=== PATIENT | male | born 1965 | race Caucasian/White ===

== ENCOUNTER 2016-04-21 13:19 | Emergency (ER) | payer MEDICAID ==
[2016-04-21 14:09] VITALS: BP 117/68
[2016-04-21 15:44] LABS: Comments Flag Yes; Hematocrit 40 % (42-52); Hemoglobin 13.3 g/dl (14.0-18.0); Mean Corpuscular HGB Conc 34 g/dl (31-36); Mean Corpuscular Hemoglobin 32 pg (27-31); Mean Corpuscular Volume 95 fL (80-94); Mean Platelet Volume 8 um3 (7.4-10.4); Red Blood Count 4.16 10^6/ul (4.0-5.4); Red Cell Distribution Width 18 % (10.5-15); White Blood Count 7.5 10^3/ul (3.5-10.8)
[2016-04-21 15:45] LABS: Add Diff/Slide Review? Slide Review Added
[2016-04-21 16:02] LABS: ALT 60 U/L (7-52); AST 130 U/L (13-39); Albumin 3.3 g/dL (3.2-5.2); Alkaline Phosphatase 142 U/L (34-104); Anion Gap 7 mmol/L (2-11); Blood Urea Nitrogen 9 mg/dL (6-24); CO2 Carbon Dioxide 28 mmol/L (22-32); Calcium 8.8 mg/dL (8.6-10.3); Chloride 102 mmol/L (101-111); EGFR African American 211.6 (>60); EGFR Non-African American 164.6 (>60); Glucose 95 mg/dL (70-100); Potassium 3.8 mmol/L (3.5-5.0); Sodium 137 mmol/L (133-145); Total Protein 7.3 g/dL (6.4-8.9)
[2016-04-21 16:07] LABS: Acetaminophen < 15 mcg/mL; Alcohol 341 mg/dL (<10); Salicylate < 2.50 mg/dL (<30)
[2016-04-21 16:17] LABS: TSH (Thyroid Stimulating Horm) 1.26 mcIU/mL (0.34-5.60)
--- NOTE | 2016-04-21 19:44 | ED ---
Chery Courtney Matthew, scribed for Ender Huizar MD on 04/21/16 at 1413 . Substance Abuse/Use - HPI Summary HPI Summary: A 50 y/o male presents to the ED by EMS for alcohol intoxication since 13:00. His parents called the police. Per the police report, the patient was incontinent, unable to form sentences, and did not know where he was. 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 CARLYLE was 0.33 measure by police [employer]OT[employer]KE [employer]RIER. - History Of Current Complaint Chief Complaint: EDSubstanceAbuse Stated Complaint: ETOH/MHE Time Seen by Provider: 04/21/16 13:55 Hx Obtained From: Patient, Other: - Police report Onset/Duration of Drug/ETOH Abuse: Hours Ingestion History: Type/Name Of Drug - EtOH Overdose Characteristics: Oral Timing Of Abuse: Binge Use Severity Initially: Moderate Severity Currently: Moderate Character: Stuporous Associated Signs And Symptoms: Negative - Allergies/Home Medications Allergies/Adverse Reactions: Allergies Allergy/AdvReac Type Severity Reaction Status Date / Time No Known Allergies Allergy Verified 11/09/14 15:19 PMH/Surg Hx/FS Hx/Imm Hx Endocrine/Hematology History: Denies: Hx Diabetes, Hx Thyroid Disease Cardiovascular History: Reports: Hx Hypertension Denies: Hx Congestive Heart Failure Respiratory History: Denies: Hx Asthma, Hx Chronic Obstructive Pulmonary Disease (COPD) GI History: Denies: Hx Ulcer Musculoskeletal History: Reports: Other Musculoskeletal History - reports hx of left knee surgery Sensory History: Reports: Hx Contacts or Glasses Opthamlomology History: Reports: Hx Contacts or Glasses Neurological History: Reports: Hx Migraine - rare, Hx Seizures, Other Neuro Impairments/Disorders - concussions Psychiatric History: Reports: Hx Anxiety, Hx Depression, Hx Substance Abuse Denies: Hx Eating Disorder, Hx of Violent Episodes Against Others - Surgical History Surgery Procedure, Year, and Place: hx of left knee surgery Hx Anesthesia Reactions: No Infectious Disease History: Unable to Obtain/Confirm Infectious Disease History: Denies: Hx Clostridium Difficile, Hx Hepatitis, Hx Human Immunodeficiency Virus (HIV), Hx of Known/Suspected MRSA, Hx Shingles, Hx Tuberculosis, Hx Known/ Suspected VRE, Hx Known/Suspected VRSA, History Other Infectious Disease, Traveled Outside the [place] in Last 30 Days - Family History Family History: FHx of depression. FHx of alcohol abuse - Social History Substance Use Type: Reports: None Substance Use Comment - Amount & Last Used: occasionally Smoking Status (MU): Light Every Day Tobacco Smoker Type: Cigarettes Amount Used/How Often: 5 cigs/day - weaning down Have You Smoked in the Last Year: No Review of Systems Constitutional: Other - Alochol Intoxication Eyes: Negative ENT: Negative Cardiovascular: Negative Respiratory: Negative Gastrointestinal: Negative Genitourinary: Negative Musculoskeletal: Negative Skin: Negative Neurological: Negative Psychological: Normal All Other Systems Reviewed And Are Negative: Yes Physical Exam Triage Information Reviewed: Yes Vital Signs On Initial Exam: Initial Vitals Temp Pulse Resp BP Pulse Ox 97.9 F 73 16 117/68 96 04/21/16 13:55 04/21/16 13:55 04/21/16 13:55 04/21/16 13:55 04/21/16 13:55 Vital Signs Reviewed: Yes Appearance: Positive: Well-Appearing, No Pain Distress Skin: Positive: Warm, Skin Color Reflects Adequate Perfusion, Dry Head/Face: Positive: Normal Head/Face Inspection Eyes: Positive: Normal ENT: Positive: Normal ENT inspection Neck: Positive: Supple, Nontender Respiratory/Lung Sounds: Positive: Clear to Auscultation, Breath Sounds Present Cardiovascular: Positive: RRR Abdomen Description: Positive: Nontender, Soft Bowel Sounds: Positive: Present Musculoskeletal: Positive: Normal, Strength/ROM Intact Neurological: Positive: Normal Psychiatric: Positive: Other - Alcohol Intoxication Diagnostics - Vital Signs Vital Signs Temp Pulse Resp BP Pulse Ox 04/21/16 13:55 97.9 F 73 16 117/68 96 - Laboratory Lab Results: Lab Results 04/21/16 04/21/16 Range/Units 15:37 15:37 WBC 7.5 (3.5-10.8) 10^3/ul RBC 4.16 (4.0-5.4) 10^6/ul Hgb 13.3 L (14.0-18.0) g/dl Hct 40 L (42-52) % MCV 95 H (80-94) fL MCH 32 H (27-31) pg MCHC 34 (31-36) g/dl RDW 18 H (10.5-15) % Plt Count 97 L (150-450) 10^3/ul MPV 8 (7.4-10.4) um3 Neut % (Auto) 61.2 (38-83) % Lymph % (Auto) 20.9 L (25-47) % [place] % (Auto) 11.0 H (1-9) % Eos % (Auto) 6.0 (0-6) % Baso % (Auto) 0.9 (0-2) % Absolute Neuts (auto) 4.6 (1.5-7.7) 10^3/ul Absolute Lymphs (auto) 1.6 (1.0-4.8) 10^3/ul Absolute Monos (auto) 0.8 (0-0.8) 10^3/ul Absolute Eos (auto) 0.4 (0-0.6) 10^3/ul Absolute Basos (auto) 0.1 (0-0.2) 10^3/ul Absolute Nucleated RBC 0 10^3/ul Nucleated RBC % 0 Hem Pathologist Commnt Pending Sodium 137 (133-145) mmol/L Potassium 3.8 (3.5-5.0) mmol/L Chloride 102 (101-111) mmol/L Carbon Dioxide 28 (22-32) mmol/L Anion Gap 7 (2-11) mmol/L BUN 9 (6-24) mg/dL Creatinine 0.53 L (0.67-1.17) mg/dL Est GFR ( Amer) 211.6 (>60) Est GFR (Non-Af Amer) 164.6 (>60) BUN/Creatinine Ratio 17.0 (8-20) Glucose 95 (70-100) mg/dL Calcium 8.8 (8.6-10.3) mg/dL Total Bilirubin 2.00 H (0.2-1.0) mg/dL AST 130 H (13-39) U/L ALT 60 H (7-52) U/L Alkaline Phosphatase 142 H (34-104) U/L Total Protein 7.3 (6.4-8.9) g/dL Albumin 3.3 (3.2-5.2) g/dL Globulin 4.0 (2-4) g/dL Albumin/Globulin Ratio 0.8 L (1-3) TSH 1.26 (0.34-5.60) mcIU/mL Salicylates < 2.50 (<30) mg/dL Acetaminophen < 15 mcg/mL Serum Alcohol 341 H (<10) mg/dL Result Diagrams: 04/21/16 15:37 04/21/16 15:37 Lab Statement: Any lab studies that have been ordered have been reviewed, and results considered in the medical decision making process. Course/Dx - Course Assessment/Plan: PATIENT AMBULATED IN ED. PARENT IS GOING TO PICK PATIENT UP FROM ED. DISCHARGE HOME STABLE. - Diagnoses Provider Diagnoses: Alcohol intoxication, Alcoholism Discharge - Discharge Plan Condition: Stable Disposition: HOME Patient Education Materials: Alcohol Intoxication (ED), Alcohol Dependence (ED) Referrals: Lili Lindquist NP [Primary Care Provider] - [facility] [Outside] [facility] [Outside] [facility] [Outside] Additional Instructions: FOLLOW UP WITH YOUR DOCTOR. RETURN TO THE EMERGENCY DEPARTMENT FOR ANY WORSENING OF YOUR CONDITION OR QUESTIONS OR CONCERNS. The documentation as recorded by the Chery gardner Matthew accurately reflects the service I personally performed and the decisions made by me, Ender Huizar MD.
== END 2016-04-21 21:22 | disposition home or self-care (01) ==
LOC: ED 13:19
DX: F10.229 Alcohol dependence with intoxication, unspecified (principal); F41.9 Anxiety disorder, unspecified; F17.210 Nicotine dependence, cigarettes, uncomplicated; Y90.8 Blood alcohol level of 240 mg/100 ml or more
CPT/HCPCS: 36415; 80053; 80320; 80329; 84443; 85025; 85060; 99282; G0480

== ENCOUNTER 2016-06-24 14:18 | Emergency (ER) | payer MEDICAID ==
[2016-06-24 15:51] LABS: Comments Flag Yes; Hematocrit 41 % (42-52); Mean Corpuscular HGB Conc 34 g/dl (31-36); Mean Corpuscular Hemoglobin 33 pg (27-31); Mean Corpuscular Volume 98 fL (80-94); Mean Platelet Volume 10 um3 (7.4-10.4); Red Blood Count 4.22 10^6/ul (4.0-5.4); Red Cell Distribution Width 15 % (10.5-15)
[2016-06-24 15:52] LABS: Add Diff/Slide Review? Slide Review Added
[2016-06-24 16:06] LABS: ALT 43 U/L (7-52); AST 114 U/L (13-39); Albumin 3.2 g/dL (3.2-5.2); Alkaline Phosphatase 171 U/L (34-104); Anion Gap 5 mmol/L (2-11); BUN/Creatinine Ratio 18.3 (8-20); Blood Urea Nitrogen 11 mg/dL (6-24); CO2 Carbon Dioxide 31 mmol/L (22-32); Calcium 8.2 mg/dL (8.6-10.3); Chloride 105 mmol/L (101-111); EGFR African American 183.4 (>60); EGFR Non-African American 142.6 (>60); Globulin 3.4 g/dL (2-4); Glucose 103 mg/dL (70-100); Potassium 3.4 mmol/L (3.5-5.0); Sodium 141 mmol/L (133-145); Total Protein 6.6 g/dL (6.4-8.9)
[2016-06-24 16:27] LABS: Acetaminophen < 15 mcg/mL; Salicylate < 2.50 mg/dL (<30)
[2016-06-24 16:32] LABS: Alcohol 441 mg/dL (<10)
--- NOTE | 2016-06-24 17:09 | ED ---
Substance Abuse/Use - HPI Summary HPI Summary: Patient BIBA after someone called police reporting strange behavior and "drunk walking" by patient. Police stated he was very confused on where he was, but very polite and willing to come to ED. Upon arrival, patient is confused but states he called the police from his home and thinks he fell and hit his face on the ground. Denies known LOC. Patient states he drinks daily about 5-6 drinks, but today drank much more. He does not remember how much. He states he was drinking at home. He has not tried to quit, and does not take any medications. Denies drug use. - History Of Current Complaint Chief Complaint: EDSubstanceAbuse Stated Complaint: 2208 Time Seen by Provider: 06/24/16 14:50 Hx Obtained From: Patient Onset/Duration of Drug/ETOH Abuse: Years Ingestion History: Amount Ingested - unknown Timing Of Abuse: Binge Use Severity Initially: Severe Severity Currently: Severe Character: Stuporous Aggravating Factor(s): Nothing Alleviating Factor(s): Nothing Associated Signs And Symptoms: Confused, Altered Mental Status - Risk Factor(s) Completed Suicide Risk Factors: Male, White Australian - Allergies/Home Medications Allergies/Adverse Reactions: Allergies Allergy/AdvReac Type Severity Reaction Status Date / Time No Known Allergies Allergy Verified 06/24/16 14:27 PMH/Surg Hx/FS Hx/Imm Hx Previously Healthy: Yes Endocrine/Hematology History: Denies: Hx Diabetes, Hx Thyroid Disease Cardiovascular History: Reports: Hx Hypertension Denies: Hx Congestive Heart Failure Respiratory History: Denies: Hx Asthma, Hx Chronic Obstructive Pulmonary Disease (COPD) GI History: Denies: Hx Ulcer Musculoskeletal History: Reports: Other Musculoskeletal History - reports hx of left knee surgery Sensory History: Reports: Hx Contacts or Glasses Opthamlomology History: Reports: Hx Contacts or Glasses Neurological History: Reports: Hx Migraine - rare, Hx Seizures, Other Neuro Impairments/Disorders - concussions Psychiatric History: Reports: Hx Anxiety, Hx Depression, Hx Substance Abuse Denies: Hx Eating Disorder, Hx of Violent Episodes Against Others - Surgical History Surgery Procedure, Year, and Place: hx of left knee surgery Hx Anesthesia Reactions: No Infectious Disease History: No Infectious Disease History: Denies: Hx Clostridium Difficile, Hx Hepatitis, Hx Human Immunodeficiency Virus (HIV), Hx of Known/Suspected MRSA, Hx Shingles, Hx Tuberculosis, Hx Known/ Suspected VRE, Hx Known/Suspected VRSA, History Other Infectious Disease, Traveled Outside the [place] in Last 30 Days - Family History Family History: FHx of depression. FHx of alcohol abuse - Social History Occupation: Employed Full-time Lives: Alone Alcohol Use: consumed excess hard liquor today Alcohol Amount: consumed hard liquor today Hx Substance Use: No Substance Use Type: Reports: Other Substance Use Comment - Amount & Last Used: occasionally, pt unable to verbalize clear answers now Smoking Status (MU): Light Every Day Tobacco Smoker Type: Cigarettes Amount Used/How Often: 5 cigs/day - weaning down Have You Smoked in the Last Year: No Review of Systems Constitutional: Negative Cardiovascular: Negative Respiratory: Negative Gastrointestinal: Negative Positive: no symptoms reported Musculoskeletal: Negative Skin: Negative Psychological: Normal All Other Systems Reviewed And Are Negative: Yes Physical Exam Triage Information Reviewed: Yes Vital Signs On Initial Exam: Initial Vitals Temp Pulse Resp BP Pulse Ox 97.9 F 77 16 116/72 100 06/24/16 14:27 06/24/16 14:27 06/24/16 14:27 06/24/16 14:27 06/24/16 14:27 Vital Signs Reviewed: Yes Appearance: Positive: Well-Appearing, Well-Nourished Skin: Positive: Warm, Skin Color Reflects Adequate Perfusion Head/Face: Positive: Normal Head/Face Inspection Eyes: Positive: JOSUÉ, Conjunctiva Clear Neck: Positive: Supple, No Lymphadenopathy Respiratory/Lung Sounds: Positive: Clear to Auscultation, Breath Sounds Present Cardiovascular: Positive: Normal Musculoskeletal: Positive: Normal, Strength/ROM Intact Neurological: Positive: Other - abnormal speech d/t intoxication, abnormal gait. unable to perform neuro exam Psychiatric: Positive: Normal AVPU Assessment: Alert - Caitlyn Coma Scale Coma Scale Total: 15 Diagnostics - Vital Signs Vital Signs Temp Pulse Resp BP Pulse Ox 06/24/16 16:15 97.1 F 06/24/16 15:14 66 18 117/59 97 06/24/16 14:27 97.9 F 77 16 116/72 100 - Laboratory Lab Results: Lab Results 06/24/16 06/24/16 06/24/16 Range/Units 15:38 15:38 15:38 WBC 9.0 (3.5-10.8) 10^3/ul RBC 4.22 (4.0-5.4) 10^6/ul Hgb 14.0 (14.0-18.0) g/dl Hct 41 L (42-52) % MCV 98 H (80-94) fL MCH 33 H (27-31) pg MCHC 34 (31-36) g/dl RDW 15 (10.5-15) % Plt Count 99 L (150-450) 10^3/ul MPV 10 (7.4-10.4) um3 Neut % (Auto) 56.5 (38-83) % Lymph % (Auto) 29.8 (25-47) % [place] % (Auto) 9.2 H (1-9) % Eos % (Auto) 3.8 (0-6) % Baso % (Auto) 0.7 (0-2) % Absolute Neuts (auto) 5.1 (1.5-7.7) 10^3/ul Absolute Lymphs (auto) 2.7 (1.0-4.8) 10^3/ul Absolute Monos (auto) 0.8 (0-0.8) 10^3/ul Absolute Eos (auto) 0.3 (0-0.6) 10^3/ul Absolute Basos (auto) 0.1 (0-0.2) 10^3/ul Absolute Nucleated RBC 0.02 10^3/ul Nucleated RBC % 0.2 Sodium 141 (133-145) mmol/L Potassium 3.4 L (3.5-5.0) mmol/L Chloride 105 (101-111) mmol/L Carbon Dioxide 31 (22-32) mmol/L Anion Gap 5 (2-11) mmol/L BUN 11 (6-24) mg/dL Creatinine 0.60 L (0.67-1.17) mg/dL Est GFR ( Amer) 183.4 (>60) Est GFR (Non-Af Amer) 142.6 (>60) BUN/Creatinine Ratio 18.3 (8-20) Glucose 103 H (70-100) mg/dL Lactic Acid 2.4 H* (0.5-2.0) mmol/L Calcium 8.2 L (8.6-10.3) mg/dL Total Bilirubin 1.70 H (0.2-1.0) mg/dL AST 114 H (13-39) U/L ALT 43 (7-52) U/L Alkaline Phosphatase 171 H (34-104) U/L Total Protein 6.6 (6.4-8.9) g/dL Albumin 3.2 (3.2-5.2) g/dL Globulin 3.4 (2-4) g/dL Albumin/Globulin Ratio 0.9 L (1-3) Salicylates < 2.50 (<30) mg/dL Acetaminophen < 15 mcg/mL Serum Alcohol 441 H* (<10) mg/dL Result Diagrams: 06/24/16 15:38 06/24/16 15:38 Lab Statement: Any lab studies that have been ordered have been reviewed, and results considered in the medical decision making process. Course/Dx - Course Course Of Treatment: Patient cooperative but stuporous on exam. CARLYLE 4.41. Held for observation and sober up. 6 hours after arrival to ED, patient walking and talking without issues. Patient called friend for a ride home, and would like to be discharged. Otherwise labs OK. - Diagnoses Differential Diagnosis/HQI/PQRI: Positive: Alcohol Abuse, Alcohol Withdrawal, Anxiety, Depression Provider Diagnoses: Alcohol abuse Discharge - Discharge Plan Condition: Stable Disposition: HOME Patient Education Materials: Alcohol Intoxication (ED) Referrals: Lili Lindquist NP [Primary Care Provider] - Additional Instructions: Follow up with your PCP. Do not drink to excess. Rest. Drink plenty of water.
[2016-06-24 23:06] VITALS: BP 148/84
== END 2016-06-24 23:05 | disposition home or self-care (01) ==
LOC: ED 14:18
DX: F10.10 Alcohol abuse, uncomplicated (principal); Y90.8 Blood alcohol level of 240 mg/100 ml or more; R41.82 Altered mental status, unspecified; R41.0 Disorientation, unspecified; F17.210 Nicotine dependence, cigarettes, uncomplicated
CPT/HCPCS: 36415; 80053; 80320; 80329; 83605; 85025; 99283; G0480

== ENCOUNTER → 2017-01-02 19:05 | Emergency (ER) | payer BC, MEDICAID ==
[~2017-01-02 19:05] MED LIST: Potassium Chlor TAB* 20 MEQ TAB.ER PO ONE
[2017-01-02 20:59] LABS: Hematocrit 39 % (42-52); Hemoglobin 13.6 g/dl (14.0-18.0); Mean Corpuscular HGB Conc 35 g/dl (31-36); Mean Corpuscular Hemoglobin 33 pg (27-31); Mean Corpuscular Volume 94 fL (80-94); Mean Platelet Volume 9 um3 (7.4-10.4); Red Cell Distribution Width 15 % (10.5-15); White Blood Count 12.5 10^3/ul (3.5-10.8)
[2017-01-02 21:13] LABS: Albumin 3.5 g/dL (3.2-5.2); BUN/Creatinine Ratio 23.8 (8-20); Calcium 8.5 mg/dL (8.6-10.3); EGFR African American 172.7 (>60); EGFR Non-African American 134.3 (>60); Globulin 3.1 g/dL (2-4); Potassium 3.4 mmol/L (3.5-5.0); Total Bilirubin 1.3 mg/dL (0.2-1.0); Total Protein 6.6 g/dL (6.4-8.9)
--- NOTE | 2017-01-03 06:43 | ED ---
Milvia Courtney Rebecca, scribed for Edgard Jolley on 01/03/17 at 0057 . 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 When asked why he presents to the ED, the pt states I dont know reporting that his family called EMS. Pt confirms EtOH use tonight. Denies any other drug use. Denies SIs and any pain. Pt reports that he does not use EtOH every day. Per triage note, the PD states that the pt was at his mothers house despite an order of protection. - History Of Current Complaint Chief Complaint: EDSubstanceAbuse Stated Complaint: 2208 Time Seen by Provider: 01/02/17 20:18 Hx Obtained From: Patient Ingestion History: Type/Name Of Drug - EtOH Overdose Characteristics: Oral Aggravating Factor(s): Nothing Alleviating Factor(s): Nothing Associated Signs And Symptoms: Negative - Allergies/Home Medications Allergies/Adverse Reactions: Allergies Allergy/AdvReac Type Severity Reaction Status Date / Time No Known Allergies Allergy Verified 01/02/17 19:11 PMH/Surg Hx/FS Hx/Imm Hx Endocrine/Hematology History: Denies: Hx Diabetes, Hx Thyroid Disease Cardiovascular History: Reports: Hx Hypertension Denies: Hx Congestive Heart Failure Respiratory History: Denies: Hx Asthma, Hx Chronic Obstructive Pulmonary Disease (COPD) GI History: Denies: Hx Ulcer Musculoskeletal History: Reports: Other Musculoskeletal History - reports hx of left knee surgery Sensory History: Reports: Hx Contacts or Glasses Opthamlomology History: Reports: Hx Contacts or Glasses Neurological History: Reports: Hx Migraine - rare, Hx Seizures, Other Neuro Impairments/Disorders - concussions Psychiatric History: Reports: Hx Anxiety, Hx Depression, Hx Substance Abuse Denies: Hx Eating Disorder, Hx of Violent Episodes Against Others - Surgical History Surgery Procedure, Year, and Place: hx of left knee surgery Hx Anesthesia Reactions: No Infectious Disease History: No Infectious Disease History: Denies: Hx Clostridium Difficile, Hx Hepatitis, Hx Human Immunodeficiency Virus (HIV), Hx of Known/Suspected MRSA, Hx Shingles, Hx Tuberculosis, Hx Known/ Suspected VRE, Hx Known/Suspected VRSA, History Other Infectious Disease, Traveled Outside the [place] in Last 30 Days - Family History Family History: FHx of depression. FHx of alcohol abuse - Social History Alcohol Use: see comment Alcohol Amount: consumed hard liquor today Hx Substance Use: No Substance Use Type: Reports: None, Other Substance Use Comment - Amount & Last Used: occasionally, pt unable to verbalize clear answers now Smoking Status (MU): Light Every Day Tobacco Smoker Type: Cigarettes Amount Used/How Often: 5 cigs/day - weaning down Have You Smoked in the Last Year: No Review of Systems Positive: Other - EtOH intoxication Positive: Other - NEGATIVE: Pain Positive: Other - NEGATIVE: SIs All Other Systems Reviewed And Are Negative: Yes Physical Exam - Summary Physical Exam Summary: Appearance: Well appearing, no pain distress Skin: warm, dry, reflects adequate perfusion Head/face: normal Eyes: EOMI, JOSUÉ ENT: normal Neck: supple, nontender Respiratory: CTA, breath sounds present Cardiovascular: RRR, pulses symmetrical Abdomen: nontender, soft Bowel: present Musculoskeletal: normal, strength/ROM intact Neuro: normal, sensory motor intact, A&Ox3 Triage Information Reviewed: Yes Vital Signs On Initial Exam: Initial Vitals Temp Pulse Resp BP Pulse Ox 99.7 F 81 16 134/74 99 01/02/17 19:08 01/02/17 19:08 01/02/17 19:08 01/02/17 19:08 01/02/17 19:08 Vital Signs Reviewed: Yes - Caitlyn Coma Scale Coma Scale Total: 15 Diagnostics - Vital Signs Vital Signs Temp Pulse Resp BP Pulse Ox 01/02/17 19:08 99.7 F 81 16 134/74 99 - Laboratory Lab Results: Lab Results 01/02/17 01/02/17 Range/Units 20:48 20:48 WBC 12.5 H (3.5-10.8) 10^3/ul RBC 4.20 (4.0-5.4) 10^6/ul Hgb 13.6 L (14.0-18.0) g/dl Hct 39 L (42-52) % MCV 94 (80-94) fL MCH 33 H (27-31) pg MCHC 35 (31-36) g/dl RDW 15 (10.5-15) % Plt Count 108 L (150-450) 10^3/ul MPV 9 (7.4-10.4) um3 Neut % (Auto) 63.9 (38-83) % Lymph % (Auto) 25.8 (25-47) % [place] % (Auto) 5.6 (1-9) % Eos % (Auto) 3.9 (0-6) % Baso % (Auto) 0.8 (0-2) % Absolute Neuts (auto) 8.0 H (1.5-7.7) 10^3/ul Absolute Lymphs (auto) 3.2 (1.0-4.8) 10^3/ul Absolute Monos (auto) 0.7 (0-0.8) 10^3/ul Absolute Eos (auto) 0.5 (0-0.6) 10^3/ul Absolute Basos (auto) 0.1 (0-0.2) 10^3/ul Absolute Nucleated RBC 0 10^3/ul Nucleated RBC % 0 Sodium 140 (133-145) mmol/L Potassium 3.4 L (3.5-5.0) mmol/L Chloride 106 (101-111) mmol/L Carbon Dioxide 26 (22-32) mmol/L Anion Gap 8 (2-11) mmol/L BUN 15 (6-24) mg/dL Creatinine 0.63 L (0.67-1.17) mg/dL Est GFR ( Amer) 172.7 (>60) Est GFR (Non-Af Amer) 134.3 (>60) BUN/Creatinine Ratio 23.8 H (8-20) Glucose 105 H (70-100) mg/dL Calcium 8.5 L (8.6-10.3) mg/dL Total Bilirubin 1.30 H (0.2-1.0) mg/dL AST 50 H (13-39) U/L ALT 28 (7-52) U/L Alkaline Phosphatase 128 H (34-104) U/L Total Protein 6.6 (6.4-8.9) g/dL Albumin 3.5 (3.2-5.2) g/dL Globulin 3.1 (2-4) g/dL Albumin/Globulin Ratio 1.1 (1-3) Serum Alcohol 288 H (<10) mg/dL Result Diagrams: 01/02/17 20:48 01/02/17 20:48 Lab Statement: Any lab studies that have been ordered have been reviewed, and results considered in the medical decision making process. 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 When asked why he presents to the ED, the pt states I dont know reporting that his family called EMS. Pt confirms EtOH use tonight. Denies any other drug use. Denies SIs and any pain. Pt reports that he does not use EtOH every day. Per triage note, the PD states that the pt was at his mothers house despite an order of protection. Serum alcohol of 288, potassium of 3.4. In the ED course, pt was given potassium chloride. Pt will be signed out to Dr. Conde, pending disposition, awiating observation due to concerns of withdrawal. - Diagnoses Provider Diagnoses: Alcohol intoxication Discharge - Discharge Plan Condition: Stable Disposition: OTHER Discharge Disposition Comment: Pt will be signed out, pending dispo d/t concerns of withdrawal The documentation as recorded by the Milvia gardner Rebecca accurately reflects the service I personally performed and the decisions made by me, Edgard Jolley.
[2017-01-03 08:19] VITALS: BP 156/92
== END | disposition home or self-care (01) ==
LOC: ED 19:05
DX: F10.129 Alcohol abuse with intoxication, unspecified (principal); Y90.8 Blood alcohol level of 240 mg/100 ml or more; F17.210 Nicotine dependence, cigarettes, uncomplicated
CPT/HCPCS: 36415; 80053; 80320; 85025; 99283; A9270-GY; G0480

== ENCOUNTER 2017-05-14 12:59 | Emergency (ER) | payer BC ==
[2017-05-14] MEDS ORDERED: Thiamine IV 100 MG, Folic Acid IV* 1 MG, Multiple Vitamin IV ADULT* 10 ML in NS 0.9% 10... IV ONE (13:09)
[2017-05-14 13:46] LABS: ABS Basophils 0.1 10^3/ul (0-0.2); ABS Eosinophils 0.1 10^3/ul (0-0.6); ABS Lymphocytes 2.2 10^3/ul (1.0-4.8); ABS Monocytes 0.5 10^3/ul (0-0.8); ABS Neutrophils 6.5 10^3/ul (1.5-7.7); ABS Nucleated RBC 0 10^3/ul; Eosinophil % 1.6 % (0-6); Hematocrit 47 % (42-52); Lymphocyte % 23.1 % (25-47); Mean Corpuscular HGB Conc 34 g/dl (31-36); Mean Corpuscular Hemoglobin 32 pg (27-31); Mean Corpuscular Volume 95 fL (80-94); Mean Platelet Volume 9 um3 (7.4-10.4); Nucleated Red Blood Cells % 0; Platelet Count 124 10^3/ul (150-450); Red Blood Count 4.92 10^6/ul (4.0-5.4); Red Cell Distribution Width 16 % (10.5-15); White Blood Count 9.4 10^3/ul (3.5-10.8)
[2017-05-14 14:03] LABS: EGFR Non-African American 139.4 (>60)
--- NOTE | 2017-05-14 14:33 | RAD ---
INDICATION: Fall. EtOH COMPARISON: CT brain October 01, 2015 TECHNIQUE: Noncontrast axial source images were acquired from the skull base to the vertex. The examination is mildly limited due to motion artifact. FINDINGS: Ventricles/sulci: The ventricles and cisterns are normal in size and configuration for age. Brain parenchyma: There is no focal parenchymal finding, evidence of intracranial mass, or intracranial mass effect. Intracranial hemorrhage:None. Extra-axial spaces: There are no abnormal extra axial fluid collections or evidence of extra-axial mass. Calvarium: There is no calvarial fracture or other calvarial abnormality. Scalp: There is no evidence of scalp or extracalvarial soft tissue abnormality. Paranasal sinuses/mastoid: There are findings of mild chronic pansinusitis. The mastoid air cells are clear. Other: None. IMPRESSION: No acute intracranial findings
--- NOTE | 2017-05-14 14:38 | RAD ---
HISTORY: Fall, intoxication, facial trauma COMPARISONS: None TECHNIQUE: Multiple contiguous axial CT scans were obtained of the face without intravenous contrast, with coronal and sagittal multiplanar reformations. FINDINGS: The study is limited by patient motion artifact. BONES: There is no displaced fracture or dislocation. The orbital rim is intact. The zygomatic arch is intact. The pterygoid plates are intact. ORBITS: The globes are round. The optic nerves are symmetric. The extraocular musculature is normal. There is no post septal or intraconal inflammatory change. There is no retrobulbar hematoma. PARANASAL SINUSES: The nasal septum is deviated to the right with left-sided spurring. There is mucosal thickening of the maxillary sinuses and ethmoid air cells and left frontal sinus. There is mucosal thickening of the left sphenoid sinus. BRAIN AND SOFT TISSUE: Unremarkable. OTHER: None. IMPRESSION: 1. NO FACIAL FRACTURE. 2. MODERATE SINUS MUCOSAL INFLAMMATORY DISEASE, WITHOUT AIR-FLUID LEVEL TO SUGGEST ACUTE SINUSITIS.
--- NOTE | 2017-05-14 18:24 | ED ---
Nhung Courtney Thomas, scribed for Rob Paredes MD on 05/14/17 at 1429 . Complex/Multi-Sys Presentation - HPI Summary HPI Summary: The patient is a 51 year old male brought in by police via ambulance because his blood alcohol was measured 0.32 via breathalyzer prior to arrival. The police were called because the patient has an order of protection not to go his parents house when he is intoxicated. The patient does not remember falling yesterday, although there is a bruise to his forehead and chin. He drinks every day, and he last consumed alcohol today at 10:00. He denies nausea, vomiting, neck pain, or any pain. Past medical history includes liver disease, anxiety, and depression. - History Of Current Complaint Chief Complaint: EDSubstanceAbuse Time Seen by Provider: 05/14/17 13:08 Hx Obtained From: Patient Onset/Duration: Still Present Timing: Constant Severity Currently: Moderate Aggravating Factor(s): EtOH Alleviating Factor(s): None Associated Signs And Symptoms: Positive: Other - Intoxication, bruise to his head; NEGATIVE: nausea, vomiting, neck pain - Allergies/Home Medications Allergies/Adverse Reactions: Allergies Allergy/AdvReac Type Severity Reaction Status Date / Time No Known Allergies Allergy Verified 01/02/17 19:11 PMH/Surg Hx/FS Hx/Imm Hx Endocrine/Hematology History: Denies: Hx Diabetes, Hx Thyroid Disease Cardiovascular History: Reports: Hx Hypertension Denies: Hx Congestive Heart Failure Respiratory History: Denies: Hx Asthma, Hx Chronic Obstructive Pulmonary Disease (COPD) GI History: Denies: Hx Ulcer Musculoskeletal History: Reports: Other Musculoskeletal History - reports hx of left knee surgery Sensory History: Reports: Hx Contacts or Glasses Opthamlomology History: Reports: Hx Contacts or Glasses Neurological History: Reports: Hx Migraine - rare, Hx Seizures, Other Neuro Impairments/Disorders - concussions Psychiatric History: Reports: Hx Anxiety, Hx Depression, Hx Substance Abuse Denies: Hx Eating Disorder, Hx of Violent Episodes Against Others - Surgical History Surgery Procedure, Year, and Place: hx of left knee surgery Hx Anesthesia Reactions: No Infectious Disease History: No Infectious Disease History: Denies: Hx Clostridium Difficile, Hx Hepatitis, Hx Human Immunodeficiency Virus (HIV), Hx of Known/Suspected MRSA, Hx Shingles, Hx Tuberculosis, Hx Known/ Suspected VRE, Hx Known/Suspected VRSA, History Other Infectious Disease, Traveled Outside the [place] in Last 30 Days - Family History Known Family History: Positive: Other - Depression, alcohol abuse - Social History Alcohol Use: Daily Alcohol Amount: last drink 1000 Hx Substance Use: No Substance Use Type: Reports: None, Other Substance Use Comment - Amount & Last Used: occasionally, pt unable to verbalize clear answers now Smoking Status (MU): Former Smoker Type: Cigarettes Amount Used/How Often: 5 cigs/day - weaning down Have You Smoked in the Last Year: No Review of Systems Negative: Fever Negative: Vomiting, Nausea Negative: Other - neck pain Positive: Other - Bruise to head Neurological: Other - Intoxication All Other Systems Reviewed And Are Negative: Yes Physical Exam - Summary Physical Exam Summary: VITAL SIGNS: Reviewed. GENERAL: Patient is an intoxicated male is lying comfortable in the stretcher. Patient is not in any acute respiratory distress. HEAD AND FACE: He has a bruise to his forehead and chin. No hematomas or skull depressions. No sinus tenderness. EYES: PERRLA, EOMI x 2, No injected conjunctiva, no nystagmus. EARS: Hearing grossly intact. Ear canals and tympanic membranes are within normal limits. MOUTH: Oropharynx within normal limits. He has alcohol on his breath. NECK: Supple, trachea is midline, no adenopathy, no JVD, no carotid bruit, no c- spine tenderness, neck with full ROM. CHEST: Symmetric, no tenderness at palpation LUNGS: Clear to auscultation bilaterally. No wheezing or crackles. CVS: Regular rate and rhythm, S1 and S2 present, no murmurs or gallops appreciated. ABDOMEN: Soft, non-tender. No signs of distention. No rebound no guarding, and no masses palpated. Bowel sounds are normal. EXTREMITIES: FROM in all major joints, no edema, no cyanosis or clubbing. NEURO: Alert and oriented x 3. Because he is intoxicated, he is a bit unstable on his feet. Speech is normal and follows commands. SKIN: Dry and warm Triage Information Reviewed: Yes Vital Signs On Initial Exam: Initial Vitals Temp Pulse Resp BP Pulse Ox 98 F 94 18 131/73 95 05/14/17 13:08 05/14/17 13:08 05/14/17 13:08 05/14/17 13:08 05/14/17 13:08 Vital Signs Reviewed: Yes Diagnostics - Vital Signs Vital Signs Temp Pulse Resp BP Pulse Ox 05/14/17 13:37 94 90 05/14/17 13:35 127/69 05/14/17 13:08 98 F 94 18 131/73 95 - Laboratory Lab Results: Lab Results 05/14/17 05/14/17 Range/Units 13:32 13:32 WBC 9.4 (3.5-10.8) 10^3/ul RBC 4.92 (4.0-5.4) 10^6/ul Hgb 16.0 (14.0-18.0) g/dl Hct 47 (42-52) % MCV 95 H (80-94) fL MCH 32 H (27-31) pg MCHC 34 (31-36) g/dl RDW 16 H (10.5-15) % Plt Count 124 L (150-450) 10^3/ul MPV 9 (7.4-10.4) um3 Neut % (Auto) 69.4 (38-83) % Lymph % (Auto) 23.1 L (25-47) % Ocean % (Auto) 5.4 (1-9) % Eos % (Auto) 1.6 (0-6) % Baso % (Auto) 0.5 (0-2) % Absolute Neuts (auto) 6.5 (1.5-7.7) 10^3/ul Absolute Lymphs (auto) 2.2 (1.0-4.8) 10^3/ul Absolute Monos (auto) 0.5 (0-0.8) 10^3/ul Absolute Eos (auto) 0.1 (0-0.6) 10^3/ul Absolute Basos (auto) 0.1 (0-0.2) 10^3/ul Absolute Nucleated RBC 0 10^3/ul Nucleated RBC % 0 Sodium 142 (133-145) mmol/L Potassium 3.9 (3.5-5.0) mmol/L Chloride 104 (101-111) mmol/L Carbon Dioxide 25 (22-32) mmol/L Anion Gap 13 H (2-11) mmol/L BUN 13 (6-24) mg/dL Creatinine 0.61 L (0.67-1.17) mg/dL Est GFR ( Amer) 179.2 (>60) Est GFR (Non-Af Amer) 139.4 (>60) BUN/Creatinine Ratio 21.3 H (8-20) Glucose 90 (70-100) mg/dL Calcium 9.1 (8.6-10.3) mg/dL Total Bilirubin 1.50 H (0.2-1.0) mg/dL AST 62 H (13-39) U/L ALT 34 (7-52) U/L Alkaline Phosphatase 129 H (34-104) U/L Total Protein 7.9 (6.4-8.9) g/dL Albumin 4.2 (3.2-5.2) g/dL Globulin 3.7 (2-4) g/dL Albumin/Globulin Ratio 1.1 (1-3) TSH Pending Salicylates < 2.50 (<30) mg/dL Acetaminophen < 15 mcg/mL Serum Alcohol Pending Result Diagrams: 05/14/17 13:32 05/14/17 13:32 Lab Statement: Any lab studies that have been ordered have been reviewed, and results considered in the medical decision making process. - CT CT Maxillofacial CT Interpretation: No Acute Changes - 1. NO FACIAL FRACTURE. 2. MODERATE SINUS MUCOSAL INFLAMMATORY DISEASE, WITHOUT AIR-FLUID LEVEL TO SUGGEST ACUTE SINUSITIS. Dr. Paredes has reviewed this report. CT Interpretation Completed By: Radiologist CT Brain CT Interpretation: No Acute Changes - NO ACUTE INTRACRANIAL PATHOLOGY. Dr. Paredes has reviewed this report. CT Interpretation Completed By: Radiologist Complex Multi-Symp Course/Dx Assessment/Plan: The patient is a 51 year old male brought in by police via ambulance because his blood alcohol was measured 0.32 via breathalyzer prior to arrival. The police were called because the patient has an order of protection not to go his parents house when he is intoxicated. The patient does not remember falling yesterday, although there is a bruise to his forehead and chin. He drinks every day, and he last consumed alcohol today at 10:00. He denies nausea, vomiting, neck pain, or any pain. Past medical history includes liver disease, anxiety, and depression. Test results are without significant abnormalities except anion gap 13 and alcohol level 422. I did a maxillofacial CT and head CT because the patient some abrasion on his head due to a fall. CT Brain shows NO ACUTE INTRACRANIAL PATHOLOGY. CT Maxillofacial shows 1. NO FACIAL FRACTURE. 2. MODERATE SINUS MUCOSAL INFLAMMATORY DISEASE, WITHOUT AIR- FLUID LEVEL TO SUGGEST ACUTE SINUSITIS. At this point, the patient is intoxicated and hemodynamically stable. The patient was given a banana bag. The patient is drinking without any abnormalities. At this point, we are waiting for the patient to get sober. The patient will be signed out to Dr. Frye pending EtOH metabolism to follow up on the disposition of the patient. - Diagnoses Provider Diagnoses: Alcohol intoxication Discharge - Discharge Plan Condition: Stable Disposition: OTHER Discharge Disposition Comment: Signed out to Dr. Frye pending EtOH metabolism. Referrals: No Primary Care Phys,NOPCP [Primary Care Provider] - The documentation as recorded by the Nhung gardner Thomas accurately reflects the service I personally performed and the decisions made by , Rob Paredes MD.
[2017-05-14] MEDS ORDERED: Nicotine Inhaler* 10 MG AMP INH ONE (18:42)
[2017-05-14] MEDS ORDERED: Mouth Piece, Nicotine* 1 EACH CARTRIDGE INH PRN (18:42)
[2017-05-14 18:43] LABS: Urine Appearance Cloudy; Urine Blood Negative (Negative); Urine Color Yellow; Urine Ketones Trace (Negative); Urine Protein 1+(30 mg/dL) (Negative); Urine Specific Gravity 1.024 (1.010-1.030); Urine Urobilinogen Positive (Negative)
--- NOTE | 2017-05-15 03:01 | ED ---
Justus Courtney Tecjoon, scribed for Moni Frye MD on 05/15/17 at 0249 . Course/Dx - Course Course Of Treatment: Patient was signed out from Dr. Paredes at end of shift. Patient will be discharged with alcohol intoxication and advised to follow up with PCP in 3 days. The patient is agreeable with this plan. - Diagnoses Provider Diagnoses: Alcohol intoxication The documentation as recorded by the Justus gardner Tecjoon accurately reflects the service I personally performed and the decisions made by Uday kirby Abdul, MD.
[2017-05-15 03:42] VITALS: BP 137/66
== END 2017-05-15 03:43 | disposition home or self-care (01) ==
LOC: ED 12:59
DX: F10.129 Alcohol abuse with intoxication, unspecified (principal); Y90.8 Blood alcohol level of 240 mg/100 ml or more; S00.83XA Contusion of other part of head, initial encounter; X58.XXXA Exposure to other specified factors, initial encounter; Y92.9 Unspecified place or not applicable; Z87.891 Personal history of nicotine dependence
CPT/HCPCS: 36415; 70450; 70486; 80053; 80307; 80320; 80329; 81003; 81015; 84443; 85025; 96365; 96366; 99284; A9270-GY; G0480; J3411

== ENCOUNTER 2018-04-14 12:09 | Inpatient (IN) | payer BC ==
--- OUTSIDE RECORDS SUMMARY | 2018-04-14 12:22 | XMS REPORT ---
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 Problem Alcoholic hepatic K70.40 Active 61002761 failure without coma Problem Anemia in other D63.8 Active 323609915 chronic diseases classified elsewhere Problem Alcohol dependence, F10.20 Active 74124572 uncomplicated Problem Alcohol dependence F10.288 Active 12523071 with other alcohol-induced disorder Problem Other obesity due E66.09 Active 451338765 to excess calories 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 Problem Cigarette nicotine F17.210 Active 85704899 dependence without complication Problem Body mass index Z68.34 Active 089102855 (BMI) of 34.0-34.9 in adult Problem Major depressive F32.9 Active 60971787 disorder, single episode, unspecified Problem Lipoma of torso D17.1 Active 69657590 Problem Mixed E78.2 Active 206628698 hyperlipidemia Problem Alcoholic cirrhosis K70.30 Active 401493330 of liver Problem Atopic dermatitis L20.9 Active 94988333 Problem Anxiety disorder, F41.9 Active 047963660 unspecified Problem Alcohol abuse, in F10.10 Active 792068496 remission ALLERGIES No Information ENCOUNTERS Encounter Location Date Diagnosis [facility] [address] [place] [address] Mar, [place] [address] Mar, [place] [address] [place] [id number] [facility] Mar, Alcoholic cirrhosis of [place] liver K70.30 [address] Mar, [facility] [place] [address] [facility] [address] . [facility][1] Mar, [place] [address] [facility] [address] [facility] Feb, [place] [address] [facility] [address] [place] [address] Feb, Tremor R25.1 ; [address] [place] pain N50.82 and Lump in [address] [place] [address] the groin R19.[address] Feb, [facility] [place] [address] [facility] [address] [facility] Feb, [place] [address] [place] 022553 . [facility][1] Feb, Tremor R25.1 [place] [address] [facility] [address] [place] [address] Feb, [place] [address] [facility] [address] [place] [address] Feb, [place] [address] [facility] [address] [place] [address] Feb, [place] [address] [facility] [address] [place] [address] Feb, Alcoholic hepatic failure [place] without coma K70.40 and [address] Tremor R25.1 [facility] [address] [place] [address] Jan, [place] [address] [place] [address]225[address] . [facility][1] Jan, [place] [address] [facility][1] Jan, [place] [address] [facility] [address] [facility] Dec, [place] [address] [facility] [address] [place] [address] Dec, [place] [address] [place] 022553 . [facility][1] Dec, [place] [address] [facility] [address] [facility] Dec, [place] [address] [facility] [address] [place] [address] Dec, [place] [address] Dec, [place] [address] Dec, Alcoholic cirrhosis [place] liver K70.30 ; Increased [address] ammonia level R79.89 and Encounter for immunization Z23 [address] Dec, [place] [address] Dec, Alcoholic hepatic failure [place] without coma K70.40 [address] Dec, Alcoholic hepatic failure [place] without coma K70.40 [address] Dec, Alcoholic cirrhosis [place] liver K70.30 [address] Dec, [place] [address] [facility] [address] [place], [place] [address] Dec, Tremor R25.1 and Alcoholic [place] hepatic failure without [address] coma K70.[address] Dec, [place] [address] Dec, Tremor R25.1 [place] [address] Nov, [place] [address] Nov, Tremor R25.1 and Alcoholic [place] cirrhosis of liver K70.30 [address] Nov, [place] [address] Nov, [place] [address] [facility] [address] [facility] [address] Nov, [address] [place] [address] Oct, Tremor R25.1 and Alcohol [place] dependence with other alcohol-induced disorder F10.[address] Oct, [place] [address] [facility] [address] [facility] Oct, [place] [address] [facility] [address] [facility] Oct, [place] [address] Oct, [facility] Yady Marcelo [place]AR[place] [address] Sep, [facility] [place] [address] Sep, [place] [address] Sep, [place] [address] Sep, Alcoholic cirrhosis [place] liver K70.30 ; Alcohol [address] abuse, in remission F10.10 ; Major depressive disorder, single episode, unspecified F32.9 ; Mixed hyperlipidemia E78.2 and Cigarette nicotine dependence without complication F17.[address] Sep, [place] [address] [facility] Business Office [address] [place], [place] [address] Yady Marcelo [address] July, [facility] Yady Marcelo JAR[place] [address] Jun, [facility] JARETH Antoine [address] Jun, [place] [address] Jun, [place] [address] [facility] [address] [facility] Jun, [place] [address] Jun, [facility] [address] [facility] [address] [facility] Jun, Alcohol abuse, [place] [address] remission F10.10 ; Alcoholic cirrhosis of liver K70.30 ; Anxiety disorder, unspecified F41.9 ; Major depressive disorder, single episode, unspecified F32.9 ; Skin lesion of face L98.9 ; Cigarette nicotine dependence without complication F17.210 ; Colon cancer screening Z12.11 ; Other obesity due to excess calories E66.09 and Body mass index (BMI) of 34.0-34.9 in adult Z68.[address] May, [place] [address] [facility] [address] [facility] [place], [place] [address] [facility] [address] Apr, [place] [address] [facility] [address] Apr, [place] [address] Mar, Alcohol-induced [facility] [place] JARETH polyneuropathy G62.1 [address] Mar, [place] [address] [facility] [address] Aug, [place] [address] [facility] [address] July, [place] [address] [facility] [address] Jun, [place] [address] [facility] [address] Jun, [place] [address] [facility] [address] Jun, [place] [address] [facility] [address] May, [place] [address] [facility] [address] May, Alcohol abuse, [place] [address] remission F10.10 ; Major depressive disorder, single episode, unspecified F32.9 and Alcoholic cirrhosis of liver K70.[address] Apr, [place] [address] [facility] [address] Mar, [place] [address] [facility] [address] Mar, [place] [address] [facility] [address] Mar, [place] [address] [facility] [address] Mar, Alcohol abuse, [place] [address] remission F10.10 ; Anxiety disorder, unspecified F41.9 ; Alcoholic hepatic failure without coma K70.40 ; Alcohol dependence with alcohol-induced persisting dementia F10.27 ; Anemia in other chronic diseases classified elsewhere D63.8 and Atopic dermatitis L20.[address] Feb, [place] [address] [facility] [address] Jan, [place] [address] [place] [address] [place], [place] [address] [facility] [address] Nov, [place] [address] [place] [address] [place] Oct, [place] [address] [place] [address] [place] Oct, Lipoma of torso D17.1 [place] [address] Major depressive disorder, single episode, unspecified F32.9 [place] [address] [place] Aug, Lipoma of torso D17.1 ; [place] [address] Mixed hyperlipidemia E78.2 and Elevated liver enzymes R74.8 [place] [address] [place] Aug, [place] [address] [place] [address] [place] July, [place] [address] [place] [address] [place] Jun, [place] [address] [place] [address] [place] Jun, [place] [address] disorders Z13.220 ; Major depressive disorder, single episode, unspecified F32.9 ; Other fatigue R53.83 and Screening examination for sexually transmitted disease Z11.3 [place] [address] [place] Jun, [place] [address] [place] [address] [place] Jun, [place] [address] May, [place] [address] May, [place] [address] [place] [address] [place] May, [place] [address] Facilitated Enrollment - UNKNOWN Mar, [address] Mar, Anxiety disorder, [place] [address] unspecified F41.9 ; Alcohol abuse, in remission F10.10 ; Hoarseness or changing voice R49.9 and Major depressive disorder, single episode, unspecified F32.9 [place] [address] [place] Feb, Lipoma of torso D17.1 ; [place] [address] Alcohol abuse, in remission F10.10 and Anxiety disorder, unspecified F41.9 [place] [address] [place] Jan, [place] [address] [place] [address] [place] Jan, [place] [address] [facility] [address] [place] [address] Dec, [place] [address] Dec, [place] [address] [place] [address] Dec, [place] [address] liver K70.30 ; Anxiety disorder, unspecified F41.9 and Major depressive disorder, single episode, unspecified F32.[address] Nov, Alcoholism /[place] [address] 303.90 ; Alcoholic cirrhosis of liver 571.2 and Anxiety 300.00 [place] [address] [place] Nov, [place] [address] Nov, Alcoholism /[place] [address] 303.90 ; Alcoholic cirrhosis of liver 571.2 ; C. difficile diarrhea 008.45 and Seizures 780.[address] Nov, [place] [address] Nov, [place] [address] Nov, Alcoholism /[place] [address] 303.90 ; Alcoholic cirrhosis of liver 571.2 ; HTN (hypertension) 401.9 and C. difficile diarrhea 008.[address] Oct, [place] [address] Oct, Alcoholism /[place] [address] 303.90 and Alcoholic cirrhosis of liver 571.[address] Oct, [place] [address] Sep, [place] [address] Sep, [place] [address] [facility] [address] Aug, [place] [address] [facility] [address] [place] Aug, [place] [address] [facility] [address] [place] Aug, [place] [address] [facility] [address] [place] Aug, Insomnia 780.52 ; [place] [address] Alcoholism /alcohol abuse 303.90 ; Anxiety 300.00 and Alcoholic cirrhosis of liver 571.[address] Aug, [place] [address] Aug, Alcoholism /[place] [address] 303.90 and Anxiety 300.00 Facilitated Enrollment - UNKNOWN Mar, [address] Mar, [place] [address] Mar, [place] [address] Mar, [place] [address] IMMUNIZATIONS No Known Immunizations SOCIAL HISTORY Never Assessed REASON FOR REFERRAL FUNCTIONAL STATUS PLAN OF CARE VITAL SIGNS MEDICATIONS Unknown Medications PROCEDURES No Known procedures RESULTS No Results REASON FOR VISIT Information Request Insurance Providers [facility] Health Member Patient Patient Patient Patient Patient Subscriber Subscriber Subscriber Group Insurance Plan Plan Plan Plan ID Relationship Address Phone Name Date of ID Name Date of No Type Insurance Insurance Insurance Coverage to Subscriber Address Phone Name Dates Blue [phone] Blue self [place] [id number] Choice Opt [id number] Choice Opt [place] 8 Medical [place] [address] Case [phone] Case self [place]ade [id number] Management [place] [address] [facility] [address] [facility] Medicaid [phone] Medicaid self [place] [id number] [facility] [address] [place] [address] Blue [phone] Blue self [place]ade [id number] Choice Opt [id number] Choice Opt [place] 8 Medical [place] [address] [facility] Slide [phone] [facility] Slide self [place]ade [id number] A Family [place] 02 [place] [id number] Planning 0 Blue [phone] Blue self Cade [id number] Choice Opt 9255 Attn 83 Choice Opt [place] [address] [place] Claims [id number] [place] [facility] [address] Medicaid [phone] Medicaid self [place]ade [id number] Wrap [facility] [address] [place] [address] [facility] Slide [phone] [facility] Slide self Cade [id number] A B [place] 02 A B [place] [address] [place] [address] Dental 25 Blue [phone] Blue self [place]ade [id number] Choice Opt [id number] Choice Opt [place] 8 Medical [facility] Medical [address] Medicaid [phone] Medicaid self [place] [id number] [facility] 00 [place] [address] Blue [phone] Blue self [place] [id number] Choice Opt 9255 Attn 83 Choice Opt [place] -WEA GG457 [place] Claims [id number] [place] [facility]plex [facility] [address] [facility] Slide [phone] FQ[facility] Slide self [place]ade [id number] A B [place] 02 A B [place] [facility] 10 [place] [address] Medical 10 Medicaid [phone] Medicaid self [place] [id number] Wrap [facility] [address] [place] [address] MEDICAL (GENERAL) HISTORY Type Description Date Medical History ETOHism Medical History alcoholic cirrhosis Medical History Major depressive disorder, single episode, unspecified Medical History Anxiety disorder, unspecified Medical History Hoarseness or changing voice Surgical History left knee Surgical History glass in right hand Surgical History left shoulder hematoma 12/2015 Surgical History moes procedure 08/2017 Hospitalization History multiple admission for ETOH detox Hospitalization History drug induced coma 11/08/14 Hospitalization History delerium trmors-requiring intubation 10/2014 Hospitalization History [facility] ETOH with drawl 2016 Hospitalization History [facility] acute ETOH withdrawl 04/2017 Hospitalization History syncope 12/2017
--- OUTSIDE RECORDS SUMMARY | 2018-04-14 12:22 | XMS REPORT ---
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 with alcohol-induced persisting dementia Problem Alcoholic hepatic K70.40 Active 95418650 failure without coma Problem Anemia in other D63.8 Active 019584376 chronic diseases classified elsewhere Problem Alcohol dependence, F10.20 Active 54811456 uncomplicated Problem Alcohol dependence F10.288 Active 68861921 with other alcohol-induced disorder Problem Other obesity due E66.09 Active 115122282 to excess calories Problem 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 Problem Cigarette nicotine F17.210 Active 35289632 dependence without complication Problem Body mass index Z68.34 Active 232881888 (BMI) of 34.0-34.9 in adult Problem Major depressive F32.9 Active 89574427 disorder, single episode, unspecified Problem Lipoma of torso D17.1 Active 38096192 Problem Mixed E78.2 Active 860188258 hyperlipidemia Problem Alcoholic cirrhosis K70.30 Active 987821416 of liver Problem Atopic dermatitis L20.9 Active 88422811 Problem Anxiety disorder, F41.9 Active 618830044 unspecified Problem Alcohol abuse, in F10.10 Active 604190025 remission ALLERGIES No Information ENCOUNTERS Encounter Location Date Diagnosis Formerly [facility] [address] [facility] Mar, [place] [address] Mar, [place] [address] [place] [id number] [facility] Mar, Alcoholic cirrhosis of [place] liver K70.30 [address] Mar, [facility] Medical [place] [address] [facility] [address] . [facility] Mar, [place] [address] [facility] [address] [facility] Feb, [place] [address] [facility] [address] [place] [address] Feb, Tremor R25.1 ; [address] [place] pain N50.82 and Lump in [address] [place] [address] the groin R19.[address] Feb, [facility] [place] [address] [facility] [address] [facility] Feb, [place] [address] [place] 822983 . [facility] Feb, Tremor R25.1 [place] [address] [facility] [address] [place] [address] Feb, [place] [address] [facility] [address] [place] [address] Feb, [place] [address] [facility] [address] [place] [address] Feb, [place] [address] [facility] [address] [place] [address] Feb, Alcoholic hepatic failure [place] without coma K70.40 and [address] Tremor R25.1 [facility] [address] [place] [address] Jan, [place] [address] [place] 822983 . [facility] Jan, [place] [address] [facility] Jan, [place] [address] [facility] [address] [facility] Dec, [place] [address] [facility] [address] [place] [address] Dec, [place] [address] [place] 822983 . [facility] Dec, [place] [address] [facility] [address] [facility] Dec, [place] [address] [facility] [address] [place] [address] Dec, [place] [address] Dec, [place] [address] Dec, Alcoholic cirrhosis of [place] liver K70.30 ; Increased [address] ammonia level R79.89 and Encounter for immunization Z23 [address] Dec, [place] [address] Dec, Alcoholic hepatic failure [place] without coma K70.40 [address] Dec, Alcoholic hepatic failure [place] without coma K70.40 [address] Dec, Alcoholic cirrhosis of [place] liver K70.30 [address] Dec, [place] [address] [facility] [address] [place], [place] [address] Dec, Tremor R25.1 and Alcoholic [place] hepatic failure [place] [address] coma K70.[address] Dec, [place] [address] Dec, Tremor R25.1 [place] [address] Nov, [place] [address] Nov, Tremor R25.1 and Alcoholic [place] cirrhosis of liver K70.30 [address] Nov, [place] [address] Nov[place] [address] [facility] [address] [facility] Suite Nov, [address] [place] [address] Oct, Tremor R25.1 and Alcohol [place] dependence with other alcohol-induced disorder F10.[address] Oct, [place] [address] [facility] [address] [facility] Oct, [place] [address] [facility] [address] [facility] Oct, [place] [address] [address] Oct, [facility] Yady Marcelo [place] [address] Sep, [facility] [place] [address] Sep, [place] [address] Sep, [place] [address] Sep, Alcoholic cirrhosis of [place] liver K70.30 ; Alcohol [address] abuse, in remission F10.10 ; Major depressive disorder, single episode, unspecified F32.9 ; Mixed hyperlipidemia E78.2 and Cigarette nicotine dependence without complication F17.[address] Sep, [place] [address] [facility] Business Office [address] [place], [place] [address] Yady Marcelo [address] July, [facility] Yady Marcelo J[place] [address] Jun, [facility] JAR[place] [address] Jun, [place] [address] Jun, [place] [address] [facility] [address] [facility] Jun, [place] [address] Jun, [facility] [place] [address] [facility] [address] [facility] Jun, Alcohol abuse, [place] [address] remission F10.10 ; Alcoholic cirrhosis of liver K70.30 ; Anxiety disorder, unspecified F41.9 ; Major depressive disorder, single episode, unspecified F32.9 ; Skin lesion of face L98.9 ; Cigarette nicotine dependence without complication F17.210 ; Colon cancer screening Z12.11 ; Other obesity due to excess calories E66.09 and Body mass index (BMI) of 34.0-34.9 in adult Z68.[address] May, [place] [address] [facility] [address] [facility] [place], [place] [address] [facility] [address] Apr, [place] [address] [facility] [address] Apr, [place] [address] Mar, Alcohol-induced [facility] [place] JARETH polyneuropathy G62.1 [address] Mar, [place] [address] [facility] [address] Aug, [place] [address] [facility] [address] July, [place] [address] [facility] [address] Jun, [place] [address] [facility] [address] Jun, [place] [address] [facility] [address] Jun, [place] [address] [facility] [address] May, [place] [address] [facility] [address] May, Alcohol abuse, [place] [address] remission F10.10 ; Major depressive disorder, single episode, unspecified F32.9 and Alcoholic cirrhosis of liver K70.[address] Apr, [place] [address] [facility] [address] Mar, [place] [address] [facility] [address] Mar, [place] [address] [facility] [address] Mar, [place] [address] [facility] [address] Mar, Alcohol abuse, [place] [address] remission F10.10 ; Anxiety disorder, unspecified F41.9 ; Alcoholic hepatic failure without coma K70.40 ; Alcohol dependence with alcohol-induced persisting dementia F10.27 ; Anemia in other chronic diseases classified elsewhere D63.8 and Atopic dermatitis L20.[address] Feb, [place] [address] [facility] [address] Jan, [place] [address] [place] [address] Dec, [place] [address] [facility] [address], [place] [address] [place] [address] Oct, [place] [address] [place] [address] [place] Oct, Lipoma of torso D17.1 [place] [address] Major depressive disorder, single episode, unspecified F32.9 [place] [address] Aug, Lipoma of torso D17.1 ; [place] [address] Mixed hyperlipidemia E78.2 and Elevated liver enzymes R74.8 [place] [address] Aug, [place] [address] [place] [address] July, [place] [address] [place] [address] Jun, [place] [address] [place] [address] Jun, Screening [place] [address] disorders Z13.220 ; Major depressive disorder, single episode, unspecified F32.9 ; Other fatigue R53.83 and Screening examination for sexually transmitted disease Z11.3 [place] [address] Jun, [place] [address] [place] [address] Jun[place] [address] May, [place] [address] May, [place] [address] [place] [address] May, [place] [address] Facilitated Enrollment - UNKNOWN Mar, [address] Mar, Anxiety disorder, [place] [address] unspecified F41.9 ; Alcohol abuse, in remission F10.10 ; Hoarseness or changing voice R49.9 and Major depressive disorder, single episode, unspecified F32.9 [place] [address] Feb, Lipoma of torso D17.1 ; [place] [address] Alcohol abuse, in remission F10.10 and Anxiety disorder, unspecified F41.9 [place] [address] Jan, [place] [address] [place] [address] Jan, [place] [address] [facility] [address] [place] [address] Dec, [place] [address] Dec, [place] [address] [place] [address] Dec, [place] [address] liver K70.30 ; Anxiety disorder, unspecified F41.9 and Major depressive disorder, single episode, unspecified F32.[address] Nov, Alcoholism /[place] [address] 303.90 ; Alcoholic cirrhosis of liver 571.2 and Anxiety 300.00 [place] [address] Nov, [place] [address] Nov, Alcoholism /[place] [address] 303.90 ; Alcoholic cirrhosis of liver 571.2 ; C. difficile diarrhea 008.45 and Seizures [address] Nov, [place] [address] Nov, [place] [address] Nov, Alcoholism /[place] [address] 303.90 ; Alcoholic cirrhosis of liver 571.2 ; HTN (hypertension) 401.9 and C. difficile diarrhea 008.[address] Oct, [place] [address] Oct, Alcoholism /[place] [address] 303.90 and Alcoholic cirrhosis of liver 571.[address] Oct, [place] [address] Sep, [place] [address] Sep, [place] [address] [facility] [address] Aug, [place] [address] [facility] [address] Aug, [place] [address] [facility] [address] Aug, [place] [address] [facility] [address] Aug, Insomnia 780.52 ; [place] [address] Alcoholism /alcohol abuse 303.90 ; Anxiety 300.00 and Alcoholic cirrhosis of liver 571.2 [facility] [address] Aug, [place] [address] Aug, Alcoholism /[place] [address] 303.90 and Anxiety 300.00 Facilitated Enrollment - UNKNOWN Mar, [address] Mar, [place] [address] Mar, [place] [address] Mar, [place] [address] IMMUNIZATIONS No Known Immunizations SOCIAL HISTORY Never Assessed REASON FOR REFERRAL FUNCTIONAL STATUS PLAN OF CARE VITAL SIGNS MEDICATIONS Unknown Medications PROCEDURES No Known procedures RESULTS No Results REASON FOR VISIT no show Insurance Providers Formerly [facility] Health Member Patient Patient Patient Patient Patient Subscriber Subscriber Subscriber Group Insurance Plan Plan Plan Plan ID Relationship Address Phone Name Date of ID Name Date of No Type Insurance Insurance Insurance Coverage to Subscriber Address Phone Name Dates Blue [phone] Blue self [place] [id number] Choice Opt [id number] Attn 83 Choice Opt [id number] [place] [id number] [place] [facility]plex [facility] [address] [facility] Slide [phone] FQ Slide self [place] [id number] A B [place] 02 A B [place] [facility] [address] [place] [address] Dental 25 [facility] Slide [phone] FLC Slide self [place] [id number] A Family [place] 02 [place] [address] Planning 0 Medicaid [phone] Medicaid self [place] [id number] Wrap [facility] 56 Wrap [place] [address] Medicaid [phone] Medicaid self [place] [id number] [place] 00 [place] [address] Medicaid [phone] Medicaid self [place] [id number] [place] [address] W[address] [place] [address] Blue [phone] Blue self [place] [id number] Choice Opt [id number] Choice Opt [place] 8 Medical [place] Medical [address] Blue [address] [phone] Blue self [place] [id number] Choice Opt [id number] Choice Opt [place] 8 Medical [place] Medical [address] Medicaid [phone] Medicaid self [place] [id number] [facility] 00 [place] [address] Blue [phone] Blue self [place] [id number] Choice Opt [phone] Choice Opt [place] 8 Medical [place] Medical [address] FQHC Slide [phone] FQHC Slide self [place] [id number] A B [place] 02 A B [address] [address] [facility] 10 Blue [phone] Blue self [place] [id number] Choice Opt 9255 Attn 83 Choice Opt [place] -WEA GG457 [place] Claims [id number] [place] Hplex [facility] [address] Case [phone] Case self [place] [id number] Management [place] [address] MEDICAL (GENERAL) HISTORY Type Description Date Medical [...] History delerium trmors-requiring intubation 10/2014 Hospitalization History [facility] ETOH with drawl 2016 Hospitalization History [facility] acute ETOH withdrawl 04/2017 Hospitalization History syncope 12/2017
--- OUTSIDE RECORDS SUMMARY | 2018-04-14 12:22 | XMS REPORT ---
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 Active 95534952 failure without coma Problem Anemia in other D63.8 Active 741182950 chronic diseases classified elsewhere Problem Alcohol dependence, F10.20 Active 91738830 uncomplicated Problem Alcohol dependence F10.288 Active 19428019 with other alcohol-induced disorder Problem Other obesity due E66.09 Active 060836375 to excess calories Problem 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 8911494 polyneuropathy Problem Cigarette nicotine F17.210 Active 24986658 dependence without complication Problem Body mass index Z68.34 Active 053780203 (BMI) of 34.0-34.9 in adult Problem Major depressive F32.9 Active 05646033 disorder, single episode, unspecified Problem Lipoma of torso D17.1 Active 23505623 Problem Mixed E78.2 Active 311401506 hyperlipidemia Problem Alcoholic cirrhosis K70.30 Active 110526644 of liver Problem Atopic dermatitis L20.9 Active 53331120 Problem Anxiety disorder, F41.9 Active 175867964 unspecified Problem Alcohol abuse, in F10.10 Active 545142657 remission ALLERGIES No Information ENCOUNTERS Encounter Location Date Diagnosis [facility] [address] [place] [address] Mar, [place] [address] Mar, [place] [address] [facility] [address] [facility] Feb, [place] [address] [facility] [address] [facility] Feb, Tremor R25.1 ; [address] [place] N50.82 [place] [address] the groin R19.[address] Feb, [place] [address] [facility] [address] [facility] Feb, [place] [address] [facility]ly [facility] [address] [facility] Feb, Tremor R25.1 [place] [address] [facility] [address] [facility] Feb, [place] [address] [place] [address] [place] [address] [place], [place] [address] [facility] [address] [place] [address] Feb, [place] [address] [place] [address] [place] [address] Feb, Alcoholic hepatic failure [place] without coma K70.40 and [address] Tremor R25.1 [facility] [address] [place] [address] Jan, [place] [address] [place] [address] . [facility] Jan, [place] [address] [facility] Jan, [place] [address] [facility] [address] [place] [address] Dec, [place] [address] [facility] [address] [place] [address] Dec, [place] [address] [place] [address] . [facility] Dec, [place] [address] [facility] [address] [place] [address] [place], [place] [address] [facility] [address] [facility] Dec, [place] [address] [facility] [address] [place] [address] Dec, [place] [address] Dec, Alcoholic cirrhosis of [place] liver K70.30 ; Increased [address] ammonia level R79.89 and Encounter for immunization Z23 [facility] [address] [place] [address] Dec, [place] [address] [facility] [address] [place] [address] Dec, Alcoholic hepatic failure [place] without coma K70.40 [address] [facility] [address] [place] [address] Dec, Alcoholic hepatic failure [place] without coma K70.40 [address] [facility] [address] [place] [address] Dec, Alcoholic cirrhosis of [place] liver K70.30 [address] Dec, [place] [address] [employer] [address] [place], [place], [place] [address] [place] [address] [place] [address] Dec, Tremor R25.1 and Alcoholic [place] hepatic failure [place] [address] coma K70.[address] Dec, [place] [address] Dec, Tremor R25.1 [place] [address] Nov, [facility] [address] Nov, Tremor R25.1 and Alcoholic [place] cirrhosis of liver K70.30 [address] [place] [address] Nov, [place] [address] Nov, [place] [address] [facility] [address] [facility] [address] Nov, [address] [place] [address] Oct, Tremor R25.1 and Alcohol [place] dependence with other [address] alcohol-induced disorder F10.[address] Oct, [place] [address] [facility] [address] Oct, [place] [address] [facility] [address] Oct, [place] [address] Oct, [facility] [place] [address] Sep, [place] [address] Sep, [place] [address] Sep, [place] [address] Sep, Alcoholic cirrhosis of [place] liver K70.30 ; Alcohol [address] abuse, in remission F10.10 ; Major depressive disorder, single episode, unspecified F32.9 ; Mixed hyperlipidemia E78.2 and Cigarette nicotine dependence without complication F17.[address] Sep, [place] [address] [facility] [employer] [address] [place], [place] [address] July, [facility] [place] [address] Jun, [facility] JARETH [place] [address] Jun, [place] [address] Jun, [place] [address] [facility] [address] [facility] Jun, [place] [address] Jun, [facility] JARETH [place] [address] Jun, Alcohol abuse, [place] [address] remission F10.10 ; Alcoholic cirrhosis of liver K70.30 ; Anxiety disorder, unspecified F41.9 ; Major depressive disorder, single episode, unspecified F32.9 ; Skin lesion of face L98.9 ; Cigarette nicotine dependence without complication F17.210 ; Colon cancer screening Z12.11 ; Other obesity due to excess calories E66.09 and Body mass index (BMI) of 34.0-34.9 in adult Z68.[address] May, [place] [address] May, [facility] JARETH [place] [address] [facility] [address] [facility] Apr, [place] [address] [facility] [address] [facility] Apr, [place] [address] Mar, Alcohol-induced [facility] [place] polyneuropathy G62.1 [address] Mar, [facility] [place] [address] [facility] [address] Aug, [place] [address] [facility] [address] July, [place] [address] [facility] [address] Jun, [place] [address] [facility] [address] Jun, [place] [address] [facility] [address] Jun, [place] [address] [facility] [address] May, [place] [address] [facility] [address] May, Alcohol abuse, [place] [address] remission F10.10 ; Major depressive disorder, single episode, unspecified F32.9 and Alcoholic cirrhosis of liver K70.[address] Apr, [place] [address] [facility] [address] Mar, [place] [address] [facility] [address] Mar, [place] [address] [facility] [address] Mar, [place] [address] [facility] [address] Mar, Alcohol abuse, [place] [address] remission F10.10 ; Anxiety disorder, unspecified F41.9 ; Alcoholic hepatic failure without coma K70.40 ; Alcohol dependence with alcohol-induced persisting dementia F10.27 ; Anemia in other chronic diseases classified elsewhere D63.8 and Atopic dermatitis L20.[address] Feb, [facility] [place] [address] [facility] [address] Jan, [place] [address] [facility] [address] Dec, [place] [address] [facility] [address] [place] [address] Nov, [place] [address] [facility] [address] Oct, [place] [address] [facility] [address] Oct, Lipoma of torso D17.1 [place] [address] Major depressive disorder, single episode, unspecified F32.[address] Aug, Lipoma of torso D17.1 ; [place] [address] Mixed hyperlipidemia E78.2 and Elevated liver enzymes R74.[address] Aug, [place] [address] [place] [address] July, [place] [address] [place] [address] Jun, [place] [address] Jun, [place] [address] disorders Z13.220 ; Major depressive disorder, single episode, unspecified F32.9 ; Other fatigue R53.83 and Screening examination for sexually transmitted disease Z11.[address] Jun, [place] [address] Jun, [place] [address] May, [place] [address] May, [place] [address] May, [place] [address] Facilitated Enrollment - UNKNOWN Mar, [address] Mar, Anxiety disorder, [place] [address] unspecified F41.9 ; Alcohol abuse, in remission F10.10 ; Hoarseness or changing voice R49.9 and Major depressive disorder, single episode, unspecified F32.[address] Feb, Lipoma of torso D17.1 ; [place] [address] Alcohol abuse, in remission F10.10 and Anxiety disorder, unspecified F41.9 [place] [address] Jan, [place] [address] Jan, [place] [address] [facility] [address] [facility] Dec, [place] [address] [facility] [address] [facility] Dec, [place] [address] Dec, [place] [address] liver K70.30 ; Anxiety disorder, unspecified F41.9 and Major depressive disorder, single episode, unspecified F32.[address] Nov, Alcoholism /[place] [address] 303.90 ; Alcoholic cirrhosis of liver 571.2 and Anxiety 300.[address] Nov, [place] [address] Nov, Alcoholism /[place] [address] 303.90 ; Alcoholic cirrhosis of liver 571.2 ; C. difficile diarrhea 008.45 and Seizures 780.39 [facility] [address] Nov, [place] [address] Nov, [place] [address] Nov, Alcoholism /[place] [address] 303.90 ; Alcoholic cirrhosis of liver 571.2 ; HTN (hypertension) 401.9 and C. difficile diarrhea 008.[address] Oct, [place] [address] Oct, Alcoholism /[place] [address] 303.90 and Alcoholic cirrhosis of liver 571.[address] Oct, [place] [address] Sep, [place] [address] [facility] [address] Sep, [place] [address] [place] [address] Aug, [place] [address] Aug, [place] [address] Aug, [place] [address] [place] [address] Aug, Insomnia 780.52 ; [place] [address] Alcoholism /alcohol abuse 303.90 ; Anxiety 300.00 and Alcoholic cirrhosis of liver 571.[address] Aug, [place] [address] [place] [address] Aug, Alcoholism /[place] [address] 303.90 and Anxiety 300.00 Facilitated Enrollment - UNKNOWN Mar, [facility] [address] Mar, [place] [address] [facility] [address] Mar, [place] [address] [facility] [address] Mar, [place] [address] IMMUNIZATIONS No Known Immunizations SOCIAL HISTORY Never Assessed REASON FOR REFERRAL FUNCTIONAL STATUS PLAN OF CARE VITAL SIGNS MEDICATIONS Unknown Medications PROCEDURES No Known procedures RESULTS No Results REASON FOR VISIT new order ultrasound Insurance Providers [facility] Health Member Patient Patient Patient Patient Patient Subscriber Subscriber Subscriber Group Insurance Plan Plan Plan Plan ID Relationship Address Phone Name Date of ID Name Date of No Type Insurance Insurance Insurance Coverage to Subscriber Address Phone Name Dates Medicaid [id number] [phone] Medicaid self [place] [id number] Wrap [facility] [address] [place] [address] FQHC Slide [phone] [facility] Slide self [place] [id number] A B [place] 02 [place] [address] [place] [facility] [address] [place] [address] Dental 25 [facility] Slide [phone] [facility] Slide self [place] [id number] A Family [place] 02 [place] [address] Planning 0 Blue [phone] Blue self [place] [id number] Choice Opt [id number] [phone] Choice Opt [place] 8 Medical [place] Medical [address] Case [phone] Case self [place] [id number] Management [place] 02 [facility] [address] [place] [address] Blue [phone] Blue self [place] [id number] Choice Opt [phone] 89 Choice Opt [place] 8 Medical [place] Medical [address] Medicaid [id number] [phone] Medicaid self [place] [id number] [facility] [address] [place] [address] FQHC Slide [phone] [facility] Slide self [place] [id number] A B [place] 02 A B [place] [facility] 10 [place] [address] Medical 10 Medicaid [id number] [phone] Medicaid self [place] [id number] [facility] [address] [place] [address] Blue [phone] Blue self [place] [id number] Choice Opt 9255 Attn 83 Choice Opt [place] -WEA GG457 [place] [id number] [place] [facility] [address] MEDICAL (GENERAL) HISTORY Type Description Date Medical [...] History drug induced coma 11/08/14 Hospitalization History [facility]-requiring intubation 10/2014 Hospitalization History [facility] ETOH with drawl 2016 Hospitalization History [facility] acute ETOH withdrawl 04/2017 Hospitalization History syncope 12/2017
--- OUTSIDE RECORDS SUMMARY | 2018-04-14 12:22 | XMS REPORT ---
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 17074088 failure without coma Problem Anemia in other D63.8 Active 347277307 chronic diseases classified elsewhere Problem Alcohol dependence, F10.20 Active 02379564 uncomplicated Problem Alcohol dependence F10.288 Active 86842560 with other alcohol-induced disorder Problem Other obesity due E66.09 Active 861055414 to excess calories Problem 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 Problem Cigarette nicotine F17.210 Active 94893294 dependence without complication Problem Body mass index Z68.34 Active 662226856 (BMI) of 34.0-34.9 in adult Problem Major depressive F32.9 Active 00419103 disorder, single episode, unspecified Problem Lipoma of torso D17.1 Active 85377345 Problem Mixed E78.2 Active 852879092 hyperlipidemia Problem Alcoholic cirrhosis K70.30 Active 785327403 of liver Problem Atopic dermatitis L20.9 Active 11680409 Problem Anxiety disorder, F41.9 Active 860588197 unspecified Problem Alcohol abuse, in F10.10 Active 714904649 remission ALLERGIES No Information ENCOUNTERS Encounter Location Date Diagnosis [facility] [address] [place] [address] Mar, [place] [address] Mar, [place] [address] [place] [id number] [facility] Mar, Alcoholic cirrhosis of [place] liver K70.30 [address] Mar, [facility] [place] [address] [facility]ly [facility], [facility] [address] . [facility] Mar, [place] [address] [facility] [address] [facility] Feb, [place] [address] [facility] [address] [place] [address] Feb, Tremor R25.1 ; [address] [place], [place] pain N50.82 and Lump in [address] [place] [address] the groin R19.[address] Feb, [facility] [place] [address] [facility] [address] [facility] Feb, [place] [address] [place] [address] . [facility] Feb, Tremor R25.1 [place] [address] [facility] [address] [place] [address] Feb, [place] [address] [facility] [address] [place] [address] [place], [place] [address] [facility] [address] [place] [address] Feb, [place] [address] [facility] [address] [place] [address] Feb, Alcoholic hepatic failure [place] without coma K70.40 and [address] Tremor R25.1 [facility] [address] [place] [address] Jan, [place] [address] [place] [address] . [facility] Jan, [place] [address] [facility] Jan, [place] [address] [facility] [address] [facility] Dec, [place] [address] [facility] [address] [place] [address] Dec, [place] [address] [place] [address] . [facility] Dec, [place] [address] [facility] [address] [facility] Dec, [place] [address] [facility] [address] [place] [address] Dec, [place] [address] Dec, [place] [address] Dec, Alcoholic cirrhosis [place] liver K70.30 ; Increased [address] ammonia level R79.89 and Encounter for immunization Z23 [address] Dec, [place] [address] Dec, Alcoholic hepatic failure [place] without coma K70.40 [address] Dec, Alcoholic hepatic failure [place] without coma K70.40 [address] Dec, Alcoholic cirrhosis [place] liver K70.30 [address] Dec, [place] [address] [facility] [employer] [address] [place], [place] [address] Dec, Tremor R25.1 and Alcoholic [place] hepatic failure [place] [address] coma K70.[address] Dec, [place] [address] Dec, Tremor R25.1 [place] [address] Nov, [place] [address] Nov, Tremor R25.1 and Alcoholic [place] cirrhosis of liver K70.30 [address] Nov, [place] [address] Nov, [place] [address] [facility] [address] [facility] [address] Nov, [address] [place] [address] Oct, Tremor R25.1 and Alcohol [place] dependence with other alcohol-induced disorder F10.[address] Oct, [place] [address] [facility] [address] [facility] Oct, [place] [address] [facility] [address] [facility] Oct, [place] [address] Oct, [facility] Yady Marcelo [place] [address] Sep, [facility] [address] Sep, [place] [address] Sep, [place] [address] Sep, Alcoholic cirrhosis [place] liver K70.30 ; Alcohol [address] abuse, in remission F10.10 ; Major depressive disorder, single episode, unspecified F32.9 ; Mixed hyperlipidemia E78.2 and Cigarette nicotine dependence without complication F17.[address] Sep, [place] [address] [facility] Business Office [address] [place], [place] [address] Yady Marcelo [address] July, [facility] Yady Marcelo [place] [address] Jun, [facility] J[place] [address] [place], [place] [address] Jun, [place] [address] [facility] [address] [facility] Jun, [place] [address] Jun, [facility] [place] [address] [facility] [address] [facility] Jun, Alcohol abuse, [place] [address] remission F10.10 ; Alcoholic cirrhosis of liver K70.30 ; Anxiety disorder, unspecified F41.9 ; Major depressive disorder, single episode, unspecified F32.9 ; Skin lesion of face L98.9 ; Cigarette nicotine dependence without complication F17.210 ; Colon cancer screening Z12.11 ; Other obesity due to excess calories E66.09 and Body mass index (BMI) of 34.0-34.9 in adult Z68.[address] May, [place] [address] [facility] [address] [facility] [place], [place] [address] [facility] [address] Apr, [place] [address] [facility] [address] Apr, [place] [address] Mar, Alcohol-induced [facility] [place] JARETH polyneuropathy G62.1 [address] Mar, [place] [address] [facility] [address] Aug, [place] [address] [facility] [address] July, [place] [address] [facility] [address] Jun, [place] [address] [facility] [address] Jun, [place] [address] [facility] [address] Jun, [place] [address] [facility] [address] May, [place] [address] [facility] [address] May, Alcohol abuse, [place] [address] remission F10.10 ; Major depressive disorder, single episode, unspecified F32.9 and Alcoholic cirrhosis of liver K70.[address] Apr, [place] [address] [facility] [address] Mar, [place] [address] [facility] [address] Mar, [place] [address] [facility] [address] Mar, [place] [address] [facility] [address] Mar, Alcohol abuse, [place] [address] remission F10.10 ; Anxiety disorder, unspecified F41.9 ; Alcoholic hepatic failure without coma K70.40 ; Alcohol dependence with alcohol-induced persisting dementia F10.27 ; Anemia in other chronic diseases classified elsewhere D63.8 and Atopic dermatitis L20.[address] Feb, [facility] [place] [address] [facility] [address] Jan, [place] [address] [place] [address] Dec, [place] [address] [facility] [address] [place] [address] [place] [address] [place] Oct, [place] [address] [place] [address] [place] Oct, Lipoma of torso D17.1 [place] [address] Major depressive disorder, single episode, unspecified F32.9 [place] [address] [place] Aug, Lipoma of torso D17.1 ; [place] [address] Mixed hyperlipidemia E78.2 and Elevated liver enzymes R74.8 [place] [address] [place] Aug, [place] [address] [place] [address] [place] July[place] [address] [place] [address] [place] Jun, [place] [address] [place] [address] [place] Jun, [place] [address] disorders Z13.220 ; Major depressive disorder, single episode, unspecified F32.9 ; Other fatigue R53.83 and Screening examination for sexually transmitted disease Z11.3 [place] [address] [place] Jun, [place] [address] [place] [address] [place], [place] [address] May, [place] [address] May, [place] [address] [place] [address] [place] May, [place] [address] Facilitated Enrollment - UNKNOWN Mar, [address] Mar, Anxiety disorder, [place] [address] unspecified F41.9 ; Alcohol abuse, in remission F10.10 ; Hoarseness or changing voice R49.9 and Major depressive disorder, single episode, unspecified F32.9 [place] [address] [place] Feb, Lipoma of torso D17.1 ; [place] [address] Alcohol abuse, in remission F10.10 and Anxiety disorder, unspecified F41.9 [place] [address] [place] Jan, [place] [address] [place] [address] [place] Jan, [place] [address] [facility] [address] [place] [address] Dec, [place] [address] Dec, [place] [address] [place] [address] Dec, [place]coholic [place] [address] liver K70.30 ; Anxiety disorder, unspecified F41.9 and Major depressive disorder, single episode, unspecified F32.[address] Nov, Alcoholism /[place] [address] 303.90 ; Alcoholic cirrhosis of liver 571.2 and Anxiety 300.00 [place] [address] [place] Nov, [place] [address] Nov, Alcoholism /[place] [address] 303.90 ; Alcoholic cirrhosis of liver 571.2 ; C. difficile diarrhea 008.45 and Seizures [address] Nov, [place] [address] Nov, [place] [address] Nov, Alcoholism /[place] [address] 303.90 ; Alcoholic cirrhosis of liver 571.2 ; HTN (hypertension) 401.9 and C. difficile diarrhea 008.[address] Oct, [place] [address] Oct, Alcoholism /[place] [address] 303.90 and Alcoholic cirrhosis of liver 571.[address] Oct, [place] [address] Sep, [place] [address] Sep, [place] [address] [facility] [address] Aug, [place] [address] [facility] [address] [place] Aug, [place] [address] [facility] [address] [place] Aug, [place] [address] [facility] [address] [place] Aug, Insomnia 780.52 ; [place] [address] Alcoholism /alcohol abuse 303.90 ; Anxiety 300.00 and Alcoholic cirrhosis of liver 571.2 [facility] [address] [place] [address] Aug, [place] [address] Aug, Alcoholism /[place] [address] 303.90 and Anxiety 300.00 Facilitated Enrollment - UNKNOWN Mar, [address] Mar, [place] [address] Mar, [place] [address] Mar, [place] [address] IMMUNIZATIONS No Known Immunizations SOCIAL HISTORY Never Assessed REASON FOR REFERRAL FUNCTIONAL STATUS PLAN OF CARE VITAL SIGNS MEDICATIONS Unknown Medications PROCEDURES No Known procedures RESULTS No Results REASON FOR VISIT information Insurance Providers [facility] Health Member Patient Patient Patient Patient Patient Subscriber Subscriber Subscriber Group Insurance Plan Plan Plan Plan ID Relationship Address Phone Name Date of ID Name Date of No Type Insurance Insurance Insurance Coverage to Subscriber Address Phone Name Dates Blue [phone] Blue self [place] [id number] Choice Opt [id number] Attn 83 Choice Opt [place] -WEA [id number] Cassia Claims [id number] Cassia [facility]plex [facility] [address] Blue [phone] Blue self [place] [id number] Choice Opt [id number] Choice Opt [place] 8 Medical [facility] Medical [address] Medicaid [phone] Medicaid self [place] [id number] [facility] [address] [place] [address] FQHC Slide [phone] FQHC Slide self [place] [id number] A B [place] 02 A B [place] [facility] [address] [place] [address] Dental 25 Blue [phone] Blue self [place] [id number] Choice Opt 9255 Attn 83 Choice Opt [place] [id number] Cassia Claims [id number] Cassia [facility]plex [facility] [address] Medicaid [phone] Medicaid self [place] [id number] [facility] [address] [place] [address] Case [phone] Case self [place] [id number] Management [place] 02 Management [facility] [address] [facility] Medicaid [id number] Medicaid self [place] [id number] Wrap [facility] 56 Wrap [place] [address] FQHC Slide [phone] FQHC Slide self [place] [id number] A B [place] 02 A B [place] [address] [place] [address] Medical 10 Blue [phone] Blue self [place] [id number] Choice Opt [id number] Choice Opt [place] [address] [facility] [address] FLC Slide [phone] FLC Slide self [place] [id number] A Family [place] 02 A [place] [address] Planning 0 Medicaid [id number] Medicaid self [place] [id number] Wrap [place] 56 Wrap [place] [address] Blue [phone] Blue self [place] [id number] Choice Opt [id number] Choice Opt [place] 8 [facility] [address] MEDICAL (GENERAL) HISTORY Type Description Date Medical [...] History delerium trmors-requiring intubation 10/2014 Hospitalization History [facility] ETOH with drawl 2016 Hospitalization History [facility] acute ETOH withdrawl 04/2017 Hospitalization History syncope 12/2017
--- OUTSIDE RECORDS SUMMARY | 2018-04-14 12:23 | XMS REPORT ---
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 Active 57110128 failure without coma Problem Anemia in other D63.8 Active 304656538 chronic diseases classified elsewhere Problem Alcohol dependence, F10.20 Active 87481695 uncomplicated Problem Alcohol dependence F10.288 Active 81004476 with other alcohol-induced disorder Problem Other obesity due E66.09 Active 925221536 to excess calories Problem 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 3272490 polyneuropathy Problem Cigarette nicotine F17.210 Active 77930056 dependence without complication Problem Body mass index Z68.34 Active 534430397 (BMI) of 34.0-34.9 in adult Problem Major depressive F32.9 Active 94379093 disorder, single episode, unspecified Problem Lipoma of torso D17.1 Active 64083017 Problem Mixed E78.2 Active 687198185 hyperlipidemia Problem Alcoholic cirrhosis K70.30 Active 955611522 of liver Problem Atopic dermatitis L20.9 Active 62365976 Problem Anxiety disorder, F41.9 Active 196101250 unspecified Problem Alcohol abuse, in F10.10 Active 042778418 remission ALLERGIES No Information ENCOUNTERS Encounter Location Date Diagnosis [facility] [address] [facility] Feb, [place] [address] [facility] [address] [facility] Feb, [place] [address] [place] [address] [address] [facility] Feb, Tremor R25.1 [place] [address] [place] [facility] [address] [facility] Feb, [place] [address] [facility] [address] [facility] Feb, [place] [address] [facility] [address] [facility] Feb, [place] [address] [facility] [address] [place] [address] Feb, Alcoholic hepatic failure [place] without coma K70.40 and [address] Tremor R25.1 [place] [facility] [address] [facility] Jan, [place] [address] [place] [address] . [facility] Jan, [place] [address] [place] [address] . [facility] Jan, [place] [address] [facility] [address] [place] [address] Dec[place] [address] [facility] [address] [place] [address] Dec, [place] [address] [facility] [address] [facility] Dec, [place] [address] [facility] [address] [place] [address] Dec[place] [address] [facility] [address] [place] [address] Dec, [place] [address] [facility] [address] [place] [address] Dec, [place] [address] [facility] [address] [place] [address] Dec, Alcoholic cirrhosis of [place] liver K70.30 ; Increased [address] ammonia level R79.89 and Encounter for immunization Z23 [facility] [address] [place] [address] Dec, [place] [address] [place] [facility] [address] [place] [address] Dec, Alcoholic hepatic failure [place] without coma K70.40 [address] [facility] [address] [place] [address] Dec, Alcoholic hepatic failure [place] without coma K70.40 [address] [facility] [address] [place] [address] Dec, Alcoholic cirrhosis of [place] liver K70.30 [address] [facility] [address] [place] [address] Dec, [place] [address] Case Management [address] [place] Marcelo, [place] [address] Dec, Tremor R25.1 and Alcoholic [place] hepatic failure without [address] coma K70.[address] Dec, [place] [address] Dec, Tremor R25.1 [place] [address] Nov, [place] [address] Nov, Tremor R25.1 and Alcoholic [place] cirrhosis of liver K70.30 [address] Nov, [place] [address] Nov, [place] [address] [facility] [address] [place] [address] Nov, [facility] [place] [address] Oct, Tremor R25.1 and Alcohol [place] dependence with other [address] alcohol-induced disorder F10.[address] Oct, [place] [address] [facility] [address] [facility] Oct, [place] [address] [facility] [address] [facility] Oct, [place] [address] Oct, [place] [address] Sep, [place] [address] Sep, [place] [address] Sep, [place] [address] Sep, Alcoholic cirrhosis of [place] liver K70.30 ; Alcohol [address] abuse, in remission F10.10 ; Major depressive disorder, single episode, unspecified F32.9 ; Mixed hyperlipidemia E78.2 and Cigarette nicotine dependence without complication F17.210 [facility] [address] [facility] Sep, [place] [address] [facility] Business Office [address] [place] [address] Yady Marcelo [address] July, [place] [address] Jun, [facility] [place] [address] [facility] [address] [place] [address] Jun, [place] [address] Jun, [place] [address] [facility] [address] [facility] Jun, [place] [address] Jun, Health [place] [address] [facility] [address] [place] [address] Jun, Alcohol abuse, [place] [address] remission F10.10 ; Alcoholic cirrhosis of liver K70.30 ; Anxiety disorder, unspecified F41.9 ; Major depressive disorder, single episode, unspecified F32.9 ; Skin lesion of face L98.9 ; Cigarette nicotine dependence without complication F17.210 ; Colon cancer screening Z12.11 ; Other obesity due to excess calories E66.09 and Body mass index (BMI) of 34.0-34.9 in adult Z68.34 [facility] [address] [place] [address] May, [place] [address] May, Health [place] [address] [facility] [address] [facility] Apr, [place] [address] [facility] [address] [facility] Apr, [place] [address] Yady Marcelo [address] Mar, Alcohol-induced Health Medical JARETH Yo polyneuropathy G62.1 [address] [place] [address] Mar, Health [place] [address] [facility] [address] [facility] [address] Aug, [place] [address] [facility] [address] July, [place] [address] [facility] [address] Jun, [place] [address] [facility] [address] Jun, [place] [address] [facility] [address] [place] [address] [facility] [address] May, [place] [address] [place] [address] May, Alcohol abuse, [place] [address] remission F10.10 ; Major depressive disorder, single episode, unspecified F32.9 and Alcoholic cirrhosis of liver K70.[address] Apr, [place] [address] [facility] [address] Mar, [place] [address] [facility] [address] Mar, [place] [address] [place] [address] Mar, [place] [address] [place] [address] Mar, Alcohol abuse, [place] [address] remission F10.10 ; Anxiety disorder, unspecified F41.9 ; Alcoholic hepatic failure without coma K70.40 ; Alcohol dependence with alcohol-induced persisting dementia F10.27 ; Anemia in other chronic diseases classified elsewhere D63.8 and Atopic dermatitis L20.[address] Feb, [place] [address] [place] [address] [place], [place] [address] [place] [address] Dec, [place] [address] [facility] [address] [place] [address] Nov, [place] [address] [place] [address] Oct, [place] [address] [place] [address] Oct, Lipoma of torso D17.1 [place] [address] Major depressive disorder, single episode, unspecified F32.9 [place] [address] Aug, Lipoma of torso D17.1 ; [place] [address] Mixed hyperlipidemia E78.2 and Elevated liver enzymes R74.8 [place] [address] Aug, [place] [address] [facility] [address] July[place] [address] [facility] [address] Jun, [place] [address] Jun, [place] [address] disorders Z13.220 ; Major depressive disorder, single episode, unspecified F32.9 ; Other fatigue R53.83 and Screening examination for sexually transmitted disease Z11.[address] Jun, [place] [address] Jun, [place] [address] [place] [address] [place] May, [place] [address] May, [place] [address] [place] [address] [place] May, [place] [address] Facilitated Enrollment - UNKNOWN Mar, [address] Mar, Anxiety disorder, [place] [address] unspecified F41.9 ; Alcohol abuse, in remission F10.10 ; Hoarseness or changing voice R49.9 and Major depressive disorder, single episode, unspecified F32.[address] Feb, Lipoma of torso D17.1 ; [place] [address] Alcohol abuse, in remission F10.10 and Anxiety disorder, unspecified F41.[address] Jan, [place] [address] Jan, [place] [address] Dec, [place] [address] Dec, [place] [address] Dec, [place] [address] liver K70.30 ; Anxiety disorder, unspecified F41.9 and Major depressive disorder, single episode, unspecified F32.[address] Nov, Alcoholism /[place] [address] 303.90 ; Alcoholic cirrhosis of liver 571.2 and Anxiety 300.[address] Nov, [place] [address] Nov, Alcoholism /[place] [address] 303.90 ; Alcoholic cirrhosis of liver 571.2 ; C. difficile diarrhea 008.45 and Seizures 780.[address] Nov, [place] [address] [place] [address] [place] Nov, [place] [address] Nov, Alcoholism /[place] [address] 303.90 ; Alcoholic cirrhosis of liver 571.2 ; HTN (hypertension) 401.9 and C. difficile diarrhea 008.45 [place] [address] [place] Oct, [place] [address] [place] [address] [place] Oct, Alcoholism /[place] [address] 303.90 and Alcoholic cirrhosis of liver 571.2 [place] [address] [place] Oct, [place] [address] [place] [address] Sep, [place] [address] [place], [place] [address] [place] [address] Aug, [place] [address] [place] [address] Aug, [place] [address] [place] [address] [place] Aug, [place] [address] [place] [address] Aug, Insomnia 780.52 ; [place] [address] Alcoholism /alcohol abuse 303.90 ; Anxiety 300.00 and Alcoholic cirrhosis of liver 571.2 [place] [address] [place] Aug, [place] [address] [place] [address] Aug, Alcoholism /[place] [address] 303.90 and Anxiety 300.00 Facilitated Enrollment - UNKNOWN Mar, [place] [address] Mar, [place] [address] [place] [address] Mar, [place] [address] Mar, [place] [address] IMMUNIZATIONS No Known Immunizations SOCIAL HISTORY Never Assessed REASON FOR REFERRAL FUNCTIONAL STATUS PLAN OF CARE VITAL SIGNS MEDICATIONS Unknown Medications PROCEDURES No Known procedures RESULTS No Results REASON FOR VISIT No Show #6 Insurance Providers [facility] Member Patient Patient Patient Patient Patient Subscriber Subscriber Subscriber Group Insurance Plan Plan Plan Plan ID Relationship Address Phone Name Date of ID Name Date of No Type Insurance Insurance Insurance Coverage to Subscriber Address Phone Name Dates Blue [phone] Blue self [place] [id number] Choice Opt [id number] Choice Opt [place] [facility] Medical [address] Medicaid [address] [phone] Medicaid self [place] [id number] Wrap [facility] 56 Wrap [place] [address] FL[facility] Slide [phone] FLCH Slide self [place] [id number] A Family [place] 02 [place] [address] Planning 0 [facility] Slide [phone] [facility] Slide self [place] [id number] A B [place] 02 A B [facility] [place] [address] Medical 10 Case [phone] Case self [place] [id number] Management [place] 02 Management [facility] [address] [facility] Medicaid [id number] [phone] Medicaid self [place] [id number] [facility] 00 [place] [address] Blue [phone] Blue self [place] [id number] Choice Opt 9255 Attn 83 Choice Opt [facility] -WEA GG457 [place] [id number] [place] [facility] [address] Blue [phone] Blue self [place] [id number] Choice Opt [id number] [phone] Choice Opt [facility] 8 [facility] Medical [address] FQHC Slide [phone] FQ[facility] Slide self [place] [id number] A B [place] 02 A B [facility] [place] [address] Dental 25 Medicaid [phone] Medicaid self [place] [id number] [facility] 00 [place] [address] MEDICAL (GENERAL) HISTORY Type Description Date Medical [...] History delerium trmors-requiring intubation 10/[address] [facility] ETOH with drawl 2016 Hospitalization History [facility] acute ETOH withdrawl 04/2017 Hospitalization History syncope 12/2017
--- OUTSIDE RECORDS SUMMARY | 2018-04-14 12:23 | XMS REPORT ---
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 84926811 failure without coma Problem Anemia in other D63.8 Active 958824112 chronic diseases classified elsewhere Problem Alcohol dependence, F10.20 Active 30409371 uncomplicated Problem Alcohol dependence F10.288 Active 82313636 with other alcohol-induced disorder Problem Other obesity due E66.09 Active 196096778 to excess calories Problem 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 Problem Cigarette nicotine F17.210 Active 49488077 dependence without complication Problem Body mass index Z68.34 Active 348720294 (BMI) of 34.0-34.9 in adult Problem Major depressive F32.9 Active 35010860 disorder, single episode, unspecified Problem Lipoma of torso D17.1 Active 19754347 Problem Mixed E78.2 Active 765112137 hyperlipidemia Problem Alcoholic cirrhosis K70.30 Active 446948930 of liver Problem Atopic dermatitis L20.9 Active 46251830 Problem Anxiety disorder, F41.9 Active 586557448 unspecified Problem Alcohol abuse, in F10.10 Active 174441182 remission ALLERGIES No Information ENCOUNTERS Encounter Location Date Diagnosis [facility] [address] [facility] Mar, [place] [address] [facility] [address] [facility] Feb, Tremor R25.1 ; [address] [place], [place] pain N50.82 [place] [address] the groin R19.[address] Feb, [place] [address] [facility] [address] [place] [address] Feb, [place] [address] [facility] [address] . [facility] Feb, Tremor R25.1 [place] [address] [facility] [address] [place] [address] Feb, [place] [address] [facility] [address] [place] [address] Feb, [place] [address] [facility] [address] [place] [address] Feb, [place] [address] [place] [address] [place] [address] Feb, Alcoholic hepatic failure [place] without coma K70.40 and [address] Tremor R25.1 [facility] [address] [place] [address] Jan, [place] [address] [place] [address] . [facility] Jan, [place] [address] Jan, [place] [address] [facility] [address] [place] [address] [place] [address] [facility] [address] [place] [address] Dec, [place] [address] Dec, [place] [address] [facility] [address] [place] [address] [place] [address] [facility] [address] [place] [address] Dec, [place] [address] [facility] [address] [place] [address] Dec, [place] [address] [facility] [address] [place] [address] Dec, Alcoholic cirrhosis of [place] liver K70.30 ; Increased [address] ammonia level R79.89 and Encounter for immunization Z23 [facility] [address] [place] [address] Dec, [place] [address] [facility] [address] [place] [address] Dec, Alcoholic hepatic failure [place] without coma K70.40 [address] [facility] [address] [place] [address] Dec, Alcoholic hepatic failure [place] without coma K70.40 [address] [facility] [address] [place] [address] Dec, Alcoholic cirrhosis of Street [place] liver K70.30 [address] [facility] [address] [place] [address] Dec, [place] [address] Case [facility] [address] [place], [place] [address] [facility] [address] [place] [address] Dec, Tremor R25.1 and Alcoholic [place] hepatic failure without coma K70.40 [facility] [address] [place] [address] Dec, [place] [address] [facility] [address] [place] [address] Dec, Tremor R25.1 [place] [address] Nov, [facility] [place] [address] [facility] [address] [place] [address] Nov, Tremor R25.1 and Alcoholic [place] cirrhosis of liver K70.30 [address] [facility] [address] [place] [address] Nov, [place] [address] [facility] [address] [place] [address] [place] [address] [facility] [address] [facility] Nov, [address] [place] [address] [address] Oct, Tremor R25.1 and Alcohol [place] dependence with other alcohol-induced disorder F10.288 [facility] [address] [place] [address] Oct, [place] [address] [facility] [address] Oct, [place] [address] [facility] [address] Oct, [place] [address] Oct, [facility] [place] [address] [facility] [address] [place] [address] Sep, [place] [address] [facility] [address] [place] [address] Sep, [place] [address] [facility] [address] [place] [address] Sep, [place] [address] Sep, Alcoholic cirrhosis of Street [place] liver K70.30 ; Alcohol [address] abuse, in remission F10.10 ; Major depressive disorder, single episode, unspecified F32.9 ; Mixed hyperlipidemia E78.2 and Cigarette nicotine dependence without complication F17.210 [place] [address] [facility] Sep, [place] [address] [facility] Business Office [address] [place] [address] July, [facility] [place] [address] Jun, [facility] [place] [address] Jun, [place] [address] Jun, [place] [address] Jun, [place] [address] Jun, [facility] [place] [address] Jun, Alcohol abuse, [place] [address] remission F10.10 ; Alcoholic cirrhosis of liver K70.30 ; Anxiety disorder, unspecified F41.9 ; Major depressive disorder, single episode, unspecified F32.9 ; Skin lesion of face L98.9 ; Cigarette nicotine dependence without complication F17.210 ; Colon cancer screening Z12.11 ; Other obesity due to excess calories E66.09 and Body mass index (BMI) of 34.0-34.9 in adult Z68.[address] May, [place] [address] May, Health [place] [address] [facility] [address] [facility] Apr, [place] [address] Apr, [place] [address] Mar, Alcohol-induced Health Medical [place] polyneuropathy G62.1 [address] Mar, [place] [address] [facility] [address] Aug, [place] [address] [facility] [address] July, [place] [address] [facility] [address] Jun, [place] [address] [facility] [address] Jun, [place] [address] [facility] [address] Jun, [place] [address] [facility] [address] May, [place] [address] [facility] [address] May, Alcohol abuse, [place] [address] remission F10.10 ; Major depressive disorder, single episode, unspecified F32.9 and Alcoholic cirrhosis of liver K70.30 [facility] [address] [facility] Apr, [place] [address] [facility] [address] Mar, [place] [address] [facility] [address] Mar, [place] [address] [facility] [address] Mar, [place] [address] [facility] [address] Mar, Alcohol abuse, [place] [address] remission F10.10 ; Anxiety disorder, unspecified F41.9 ; Alcoholic hepatic failure without coma K70.40 ; Alcohol dependence with alcohol-induced persisting dementia F10.27 ; Anemia in other chronic diseases classified elsewhere D63.8 and Atopic dermatitis L20.[address] Feb, [place] [address] [facility] [address] Jan, [place] [address] [facility] [address] Dec, [place] [address] [facility] [address], [place] [address] [facility] [address] Oct, [place] [address] [facility] [address] Oct, Lipoma of torso D17.1 [place] [address] Major depressive disorder, single episode, unspecified F32.9 [facility] [address] Aug, Lipoma of torso D17.1 ; [place] [address] Mixed hyperlipidemia E78.2 and Elevated liver enzymes R74.8 [place] [address] [place] Aug, [place] [address] [place] [address] [place] July, [place] [address] [place] [address] [place] Jun, [place] [address] Jun, [place] [address] disorders Z13.220 ; Major depressive disorder, single episode, unspecified F32.9 ; Other fatigue R53.83 and Screening examination for sexually transmitted disease Z11.3 [place] [address] [place] Jun, [place] [address] [place] [address] [place] Jun, [place] [address] [place] [address] [place] May, [place] [address] May, [place] [address] May, [place] [address] Facilitated Enrollment - UNKNOWN Mar, [address] Mar, Anxiety disorder, [place] [address] unspecified F41.9 ; Alcohol abuse, in remission F10.10 ; Hoarseness or changing voice R49.9 and Major depressive disorder, single episode, unspecified F32.[address] Feb, Lipoma of torso D17.1 ; [place] [address] Alcohol abuse, in remission F10.10 and Anxiety disorder, unspecified F41.[address] Jan, [place] [address] Jan, [place] [address] [facility] [address] [facility] Dec, [place] [address] [facility] [address] [facility] Dec, [place] [address] Dec, [place] [address] liver K70.30 ; Anxiety disorder, unspecified F41.9 and Major depressive disorder, single episode, unspecified F32.[address] Nov, Alcoholism /[place] [address] 303.90 ; Alcoholic cirrhosis of liver 571.2 and Anxiety 300.[address] Nov, [place] [address] Nov, Alcoholism /[place] [address] 303.90 ; Alcoholic cirrhosis of liver 571.2 ; C. difficile diarrhea 008.45 and Seizures 780.[address] Nov, [place] [address] Nov, [place] [address] Nov, Alcoholism /[place] [address] 303.90 ; Alcoholic cirrhosis of liver 571.2 ; HTN (hypertension) 401.9 and C. difficile diarrhea 008.[address] Oct, [place] [address] Oct, Alcoholism /[place] [address] 303.90 and Alcoholic cirrhosis of liver 571.[address] Oct, [place] [address] Sep, [place] [address] Sep, [place] [address] Aug, [place] [address] Aug, [place] [address] Aug, [place] [address] [place] [address] [place] Aug, Insomnia 780.52 ; [place] [address] Alcoholism /alcohol abuse 303.90 ; Anxiety 300.00 and Alcoholic cirrhosis of liver 571.[address] Aug, [place] [address] Aug, Alcoholism /[place] [address] 303.90 and Anxiety 300.00 Facilitated Enrollment - UNKNOWN Mar, [place] [address] [place] Mar, [place] [address] [place] [address] [place] Mar, [place] [address] Mar, [place] [address] IMMUNIZATIONS No Known Immunizations SOCIAL HISTORY Never Assessed REASON FOR REFERRAL FUNCTIONAL STATUS PLAN OF CARE VITAL SIGNS MEDICATIONS Unknown Medications PROCEDURES No Known procedures RESULTS No Results REASON FOR VISIT information Insurance Providers [facility] Health Member Patient Patient Patient Patient Patient Subscriber Subscriber Subscriber Group Insurance Plan Plan Plan Plan ID Relationship Address Phone Name Date of ID Name Date of No Type Insurance Insurance Insurance Coverage to Subscriber Address Phone Name Dates Blue [phone] Blue self [place] [id number] Choice Opt [id number] Choice Opt [place] [address] [place] [address] FQHC Slide [phone] FQHC Slide self [place] [id number] A B [place] 02 [address] B [place] [address] [place] [address] Medical 10 Medicaid [id number] Medicaid self [place] [id number] [facility] [address] [place] [id number] [id number] [phone] Medicaid self aCde [id number] [facility] [address] [place] [id number] Medicaid [phone] Medicaid self [place] [id number] Wrap [facility] 56 Wrap [place] [id number] Case [phone] Case self [place] [id number] Management [place] 02 Management [facility] [address] [facility] Blue [phone] Blue self Cade [id number] Choice Opt 9255 Attn 83 Choice Opt [place] -[place] GG457 [place] Claims [id number] [place] [facility] [address] Blue [phone] Blue self [place] [id number] Choice Opt [id number] Choice Opt [place] 8 Medical [place] Medical [address] [facility] Slide [phone] [facility] Slide self [place]ade [id number] A B [place] 02 A B [place] [facility] [place] [address] Dental 25 [facility] Slide [phone] [facility] Slide self [place] [id number] A Family [place] 02 [place] [address] Planning 0 MEDICAL (GENERAL) HISTORY Type Description Date Medical [...] History drug induced coma 11/08/14 Hospitalization History [facility] herringors-requiring intubation 10/2014 Hospitalization History [facility] ETOH with drawl 2016 Hospitalization History [facility] acute ETOH withdrawl 04/2017 Hospitalization History syncope 12/2017
--- OUTSIDE RECORDS SUMMARY | 2018-04-14 12:23 | XMS REPORT ---
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 72514332 failure without coma Problem Anemia in other D63.8 Active 990652497 chronic diseases classified elsewhere Problem Alcohol dependence, F10.20 Active 27909929 uncomplicated Problem Alcohol dependence F10.288 Active 71617973 with other alcohol-induced disorder Problem Other obesity due E66.09 Active 486622802 to excess calories Problem 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 Problem Cigarette nicotine F17.210 Active 69095156 dependence without complication Problem Body mass index Z68.34 Active 667033821 (BMI) of 34.0-34.9 in adult Problem Major depressive F32.9 Active 69088360 disorder, single episode, unspecified Problem Lipoma of torso D17.1 Active 21087148 Problem Mixed E78.2 Active 137052080 hyperlipidemia Problem Alcoholic cirrhosis K70.30 Active 623431114 of liver Problem Atopic dermatitis L20.9 Active 05931780 Problem Anxiety disorder, F41.9 Active 888953748 unspecified Problem Alcohol abuse, in F10.10 Active 479202300 remission ALLERGIES Substance Reaction Event Type Date Status Celexa hives Drug Allergy Feb, Active ENCOUNTERS Encounter Location Date Diagnosis [address] Mar, [place] [address] Feb, [place] [address] [facility] [address] [place] [address] Feb, Tremor R25.1 ; [address] [place], [place] pain N50.82 [place] [address] the groin R19.[address] Feb, [place] [address] [facility] [address] [place] [address] Feb, [place] [address] [place] 828803 . [facility] Feb, Tremor R25.1 [place] [address] [facility] [address] [place] [address] Feb, [place] [address] [place] [address] [place] [address] Feb, [place] [address] [place] [address] Feb, [place] [address] [place] [address] Feb, Alcoholic hepatic failure [place] without coma K70.40 and [address] Tremor R25.[address] Jan, [place] [address] Jan, [place] [address] Jan, [place] [address] Dec, [place] [address] Dec, [place] [address] Dec, [place] [address] Dec, [place] [address] [facility] [address] [place] [address] Dec, [place] [address] [facility] [address] [place] [address] Dec, [place] [address] Dec, Alcoholic cirrhosis of [place] liver K70.30 ; Increased [address] ammonia level R79.89 and Encounter for immunization Z23 [address] Dec, [place] [address] [place] Dec, Alcoholic hepatic failure [place] without coma K70.40 [address] [facility] [address] [place] [address] Dec, Alcoholic hepatic failure [place] without coma K70.40 [address] Dec, Alcoholic cirrhosis of [place] liver K70.30 [address] Dec, [place] [address] [employer] [address] Yady Marcelo, [place], [place] [address] [place] [address] [place] [address] Dec, Tremor R25.1 and Alcoholic [place] hepatic failure without [address] coma K70.[address] Dec, [place] [address] Dec, Tremor R25.1 [place] [address] [place] Nov, [facility] [place] [address] Nov, Tremor R25.1 and Alcoholic [place] cirrhosis of liver K70.30 [address] Nov, [place] [address] Nov, [place] [address] [facility] [address] [facility] Nov, [address] [place] [address] Oct, Tremor R25.1 and Alcohol [place] dependence with other [address] alcohol-induced disorder F10.[address] Oct, [place] [address] [place] [facility] [address] Oct, [place] [address] [place] [facility] [address] Oct, [place] [address] [place] Oct, [facility] [place] [address] Sep, [place] [address] Sep, [place] [address] Sep, [place] [address] [place] [address] Sep, Alcoholic cirrhosis of [place] liver K70.30 ; Alcohol [address] abuse, in remission F10.10 ; Major depressive disorder, single episode, unspecified F32.9 ; Mixed hyperlipidemia E78.2 and Cigarette nicotine dependence without complication F17.[address] Sep, [place] [address] [facility]LY [facility] Business Office [address] [place], [place] [address] [place] July, [place] [address] Jun, [facility] JARETH [place] [address] [place] [address] Jun, [place] [address] Jun, [place] [address] Jun, [facility] JARETH [place] [address] Jun, Alcohol abuse, [place] [address] remission F10.10 ; Alcoholic cirrhosis of liver K70.30 ; Anxiety disorder, unspecified F41.9 ; Major depressive disorder, single episode, unspecified F32.9 ; Skin lesion of face L98.9 ; Cigarette nicotine dependence without complication F17.210 ; Colon cancer screening Z12.11 ; Other obesity due to excess calories E66.09 and Body mass index (BMI) of 34.0-34.9 in adult Z68.[address] May, [place] [address] May, Health [place] [address] [facility] [address] [facility] Apr, [place] [address] [facility] [address] [facility] Apr, [place] [address] [place] Mar, Alcohol-induced Health Medical [place] polyneuropathy G62.1 [address] Mar, [facility] [address] [facility] [address] Aug, [place] [address] [facility] [address] July, [place] [address] [facility] [address] Jun, [place] [address] [facility] [address] Jun, [place] [address] [facility] [address] Jun, [place] [address] [facility] [address] May, [place] [address] [facility] [address] May, Alcohol abuse, [place] [address] remission F10.10 ; Major depressive disorder, single episode, unspecified F32.9 and Alcoholic cirrhosis of liver K70.[address] Apr, [place] [address] [facility] [address] Mar, [place] [address] [facility] [address] Mar, [place] [address] [facility] [address] Mar, [place] [address] [facility] [address] Mar, Alcohol abuse, [place] [address] remission F10.10 ; Anxiety disorder, unspecified F41.9 ; Alcoholic hepatic failure without coma K70.40 ; Alcohol dependence with alcohol-induced persisting dementia F10.27 ; Anemia in other chronic diseases classified elsewhere D63.8 and Atopic dermatitis L20.[address] Feb, [facility] [place] [address] [facility] [address] Jan, [place] [address] [facility] [address] Dec, [place] [address] [facility] [address] [place] [address] Nov, [place] [address] [facility] [address] Oct, [place] [address] [facility] [address] Oct, Lipoma of torso D17.1 [place] [address] Major depressive disorder, single episode, unspecified F32.9 [place] [address] Aug, Lipoma of torso D17.1 ; [place] [address] Mixed hyperlipidemia E78.2 and Elevated liver enzymes R74.8 [place] [address] Aug, [place] [address] [place] [address] July, [place] [address] [place] [address] Jun, [place] [address] [place] [address] Jun, [place] [address] disorders Z13.220 ; Major depressive disorder, single episode, unspecified F32.9 ; Other fatigue R53.83 and Screening examination for sexually transmitted disease Z11.3 [place] [address] Jun, [place] [address] [place] [address] Jun, [place] [address] [place] [address] May, [place] [address] [place] [address] May, [place] [address] May, [place] [address] Facilitated Enrollment - UNKNOWN Mar, [address] Mar, Anxiety disorder, [place] [address] unspecified F41.9 ; Alcohol abuse, in remission F10.10 ; Hoarseness or changing voice R49.9 and Major depressive disorder, single episode, unspecified F32.9 [place] [address] Feb, Lipoma of torso D17.1 ; [place] [address] Alcohol abuse, in remission F10.10 and Anxiety disorder, unspecified F41.9 [place] [address] Jan, [place] [address] [place] [address] Jan, [place] [address] [facility] [facility] Dec, [place] [address] [facility] [facility] Dec, [place] [address] [place] [address] Dec, [place] [address] liver K70.30 ; Anxiety disorder, unspecified F41.9 and Major depressive disorder, single episode, unspecified F32.[address] Nov, Alcoholism /[place] [address] 303.90 ; Alcoholic cirrhosis of liver 571.2 and Anxiety 300.[address] Nov, [place] [address] Nov, Alcoholism /[place] [address] 303.90 ; Alcoholic cirrhosis of liver 571.2 ; C. difficile diarrhea 008.45 and Seizures 780.39 [facility] [address] Nov, [place] [address] Nov, [place] [address] Nov, Alcoholism /[place] [address] 303.90 ; Alcoholic cirrhosis of liver 571.2 ; HTN (hypertension) 401.9 and C. difficile diarrhea 008.[address] Oct, [place] [address] Oct, Alcoholism /[place] [address] 303.90 and Alcoholic cirrhosis of liver 571.[address] Oct, [place] [address] Sep, [place] [address] [facility] [address] Sep, [place] [address] [place] [address] Aug, [place] [address] [place] [address] Aug, [place] [address] Aug, [place] [address] [place] [address] Aug, Insomnia 780.52 ; [place] [address] Alcoholism /alcohol abuse 303.90 ; Anxiety 300.00 and Alcoholic cirrhosis of liver 571.[address] Aug, [place] [address] Aug, Alcoholism /[place] [address] 303.90 and Anxiety 300.00 Facilitated Enrollment - UNKNOWN Mar, [place] [address] Mar, [place] [address] [facility] [address] [facility] Mar, [place] [address] [facility] [address] Mar, [place] [address] IMMUNIZATIONS No Known Immunizations SOCIAL HISTORY Never Assessed REASON FOR REFERRAL FUNCTIONAL STATUS PLAN OF CARE Activity Details Follow Up 1-2 wks Reason:his pcp- medical marijuana discussion Pending Test Ultrasound : Scrotum Pending Test Ultrasound : Abdomen and Pelvis VITAL SIGNS Temperature 98.0 degrees Fahrenheit 2018-03-25 Heart Rate 18 2018-03-25 Weight 276.4 2018-03-25 Height 77.0 in 2018-03-25 BMI 32.77 kg/m2 2018-03-25 Oximetry 98 % 2018-03-25 Blood pressure systolic 120 mm Hg 2018-03-25 Blood pressure diastolic 72 mm Hg 2018-03-25 MEDICATIONS Medication Instructions Dosage Frequency Start End Duration Status Date Date Levetiracetam Orally once a 1 tablet 24h 30 days Active 1000 mg day Remeron 15 MG Orally Once a 1/2 tablet 24h 30 days Active day at bedtime Protonix 40 mg Orally Once a 1 tablet 24h 30 days Active day Spironolactone 25 Orally Four 1 tablet 6h Mar, days Active MG times a day with food 2018 Benadryl 50 mg orally prn 1 tab(s) Active Propranolol HCl Orally bid 1 tablet 12h Feb, day(s) Active 10 mg on an 2018 empty stomach HydrOXYzine HCl Orally every 8 1 tablet 8h 90 days Not-Taki 25 MG hrs as needed ng Melatonin 3 MG Orally Once a 2 tablet 24h Active day at bedtime as needed with food Lactulose 20 Orally qid 1 packet 6h Active GM/30ML Vistaril 50 mg Orally every 6 1 capsule Active hrs-prn as needed Quetiapine Orally Once a 1 tablet 24h 90 days Not-Taki Fumarate 25 MG day ng Seroquel 100 mg Orally qhs 1 tablet 30 days Active Pantoprazole Orally Once a 1 tablet 24h 90 days Not-Taki Sodium 40 mg day ng Gabapentin 600 MG Orally bid 1 tablet 12h 30 days Active PROCEDURES Procedure Date Ordered Result Body Site BLOOD PRESSURE, MEASURED Mar 25, 2018 Oxygen saturation results documented and reviewed Mar 25, 2018 BODY MASS INDEX DOCD Mar 25, 2018 SMOKING + 2ND HAND ASSESSED Mar 25, 2018 RESULTS No Results REASON FOR VISIT f/u for tremors and pt is also c/o having a hernia near his groin area that patient noticed recently, states that he has felt a bump a few weeks ago, patient is also concerned about medication side effects , would also like a referral for medicinal use of marijuana Insurance Providers Formerly [facility] Health Member Patient Patient Patient Patient Patient Subscriber Subscriber Subscriber Group Insurance Plan Plan Plan Plan ID Relationship Address Phone Name Date of ID Name Date of No Type Insurance Insurance Insurance Coverage to Subscriber Address Phone Name [facility] [phone] [facility] Slide self Cade [id number] A Family [place] 02 [place] [address] Planning 0 Medicaid [phone] Medicaid self [place] [id number] [facility] [address] [place] [address] Blue [phone] Blue self [place] [id number] Choice Opt 9255 Attn 83 Choice Opt [place] -WEA GG457 [place] [id number] [place] [facility] [address] Blue [phone] Blue self [place] [id number] Choice [place] [id number] [phone] Choice Opt [place] 8 Medical [place] Medical [address] Blue [phone] Blue self [place] [id number] Choice Opt [address] 89 Choice Opt [place] 8 Medical [place] Medical [address] [facility] Slide [phone] [facility] Slide self [place] [id number] A B [place] 02 [place] B [place] [facility] [address] [place] [address] Medical 10 Medicaid [phone] Medicaid self [place] [id number] [facility] [address] [place] [address] [facility]HC Slide [phone] [facility] Slide self [place] [id number] A B [place] 02 A B [place] [facility] [address] [place] [address] Dental 25 Medicaid [phone] Medicaid self [place] [id number] Wrap [facility] 56 Wrap [place] [address] Case [phone] Case self [place] [id number] Management [place] 02 Management [facility] [address] [facility] MEDICAL (GENERAL) HISTORY Type Description Date Medical [...] History deledenilson trmors-requiring intubation 10/2014 Hospitalization History [facility] ETOH with drawl 2016 Hospitalization History [facility] acute ETOH withdrawl 04/2017 Hospitalization History syncope 12/2017
--- OUTSIDE RECORDS SUMMARY | 2018-04-14 12:23 | XMS REPORT ---
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 Active 62820836 failure without coma Problem Anemia in other D63.8 Active 144124658 chronic diseases classified elsewhere Problem Alcohol dependence, F10.20 Active 14731042 uncomplicated Problem Alcohol dependence F10.288 Active 94402615 with other alcohol-induced disorder Problem Other obesity due E66.09 Active 525165762 to excess calories Problem 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 5948850 polyneuropathy Problem Cigarette nicotine F17.210 Active 61148527 dependence without complication Problem Body mass index Z68.34 Active 837535736 (BMI) of 34.0-34.9 in adult Problem Major depressive F32.9 Active 30920806 disorder, single episode, unspecified Problem Lipoma of torso D17.1 Active 88517167 Problem Mixed E78.2 Active 147116164 hyperlipidemia Problem Alcoholic cirrhosis K70.30 Active 376096571 of liver Problem Atopic dermatitis L20.9 Active 75349956 Problem Anxiety disorder, F41.9 Active 084665758 unspecified Problem Alcohol abuse, in F10.10 Active 112306110 remission ALLERGIES No Information ENCOUNTERS Encounter Location Date Diagnosis [facility] [address] [place] [address] Feb, [place] [address] Feb, Tremor R25.1 [place] [address] [facility] [address] [facility] Feb, [place] [address] [facility] [address] [place] [address] Feb, [place] [address] [facility] [address] [place] [address] Feb, [place] [address] [facility] [address] [place] [address] Feb, Alcoholic hepatic failure [place] without coma K70.40 and [address] Tremor R25.1 [facility] [address] [place] [address] Jan, [place] [address] [facility] Jan, [place] [address] Jan, [place] [address] [facility] [address] [place] [address] Dec, [place] [address] [facility] [address] [place] [address] Dec, [place] [address] Dec, [place] [address] [facility] [address] [place] [address] Dec, [place] [address] [facility] [address] [place] [address] Dec, [place] [address] [facility] [address] [place] [address] Dec, [place] [address] Dec, Alcoholic cirrhosis of [place] liver K70.30 ; Increased [address] ammonia level R79.89 and Encounter for immunization Z23 [facility] [address] [place] [address] Dec, [place] [address] [facility] [address] [place] [address] Dec, Alcoholic hepatic failure [place] without coma K70.40 [address] [facility] [address] [place] [address] Dec, Alcoholic hepatic failure [place] without coma K70.40 [address] Dec, Alcoholic cirrhosis of [place] liver K70.30 [address] [facility] [address] [place] [address] Dec, [place] [address] [employer] [address] [place] Marcelo, [place] [address] Dec, Tremor R25.1 and Alcoholic [place] hepatic failure [place] [address] coma K70.[address] Dec, [place] [address] Dec, Tremor R25.1 [place] [address] Nov, [facility] [address] Nov, Tremor R25.1 and Alcoholic [place] cirrhosis of liver K70.30 [address] Nov, [place] [address] Nov, [place] [address] [facility] [address] Nov, [address] [place] [address] Oct, Tremor R25.1 and Alcohol [place] dependence with other [address] alcohol-induced disorder F10.[address] Oct, [place] [address] [facility] [address] [facility] Oct, [place] [address] [facility] [address] [facility] Oct, [place] [address] Oct, [facility] [address] Sep, [place] [address] Sep, [place] [address] Sep, [place] [address] Sep, Alcoholic cirrhosis of [place] liver K70.30 ; Alcohol [address] abuse, in remission F10.10 ; Major depressive disorder, single episode, unspecified F32.9 ; Mixed hyperlipidemia E78.2 and Cigarette nicotine dependence without complication F17.[address] Sep, [place] [address] [facility] [employer] [address] [place], [place] [address] Yady Marcelo [address] July, [place] [address] [address] Jun, Health JAR[place] [address] [facility] [address] [facility] Jun, [place] [address] [facility] [address] [facility] Jun, [place] [address] [facility] [address] Jun, [place] [address] Jun, [place] [address] [facility] [address] Jun, Alcohol abuse, [place] [address] remission F10.10 ; Alcoholic cirrhosis of liver K70.30 ; Anxiety disorder, unspecified F41.9 ; Major depressive disorder, single episode, unspecified F32.9 ; Skin lesion of face L98.9 ; Cigarette nicotine dependence without complication F17.210 ; Colon cancer screening Z12.11 ; Other obesity due to excess calories E66.09 and Body mass index (BMI) of 34.0-34.9 in adult Z68.34 [facility] [address] [facility] May, [place] [address] May, [facility] JARETH [place] [address] [facility] [address] Apr, [place] [address] [facility] [address] Apr, [place] [address] Yady Marcelo [address] Mar, Alcohol-induced Health [facility] [place] polyneuropathy G62.1 [address] Yady Marcelo [address] Mar, [place] [address] [facility] [address] Aug, [place] [address] [facility] [address] July, [place] [address] [facility] [address] Jun, [place] [address] [facility] [address] Jun, [place] [address] [facility] [address] Jun, [place] [address] [facility] [address] May, [place] [address] [facility] [address] May, Alcohol abuse, [place] [address] remission F10.10 ; Major depressive disorder, single episode, unspecified F32.9 and Alcoholic cirrhosis of liver K70.[address] Apr, [place] [address] [facility] [address] Mar, [place] [address] [facility] [address] Mar, [place] [address] [facility] [address] Mar, [place] [address] [place] [address] Mar, Alcohol abuse, [place] [address] remission F10.10 ; Anxiety disorder, unspecified F41.9 ; Alcoholic hepatic failure without coma K70.40 ; Alcohol dependence with alcohol-induced persisting dementia F10.27 ; Anemia in other chronic diseases classified elsewhere D63.8 and Atopic dermatitis L20.[address] Feb, [place] [address] [place] [address] Jan, [place] [address] [place] [address] Dec, [place] [address] Nov, [place] [address] [place] [address] Oct, [place] [address] [place] [address] Oct, Lipoma of torso D17.1 [place] [address] Major depressive disorder, single episode, unspecified F32.9 [place] [address] Aug, Lipoma of torso D17.1 ; [place] [address] Mixed hyperlipidemia E78.2 and Elevated liver enzymes R74.8 [place] [address] Aug, [place] [address] [place] [address] July, [place] [address] [facility] [address] Jun, [place] [address] [place] [address] Jun, [place] [address] disorders Z13.220 ; Major depressive disorder, single episode, unspecified F32.9 ; Other fatigue R53.83 and Screening examination for sexually transmitted disease Z11.[address] Jun, [place] [address] Jun, [place] [address] [place] [address] May, [place] [address] May, [place] [address] May, [place] [address] Facilitated Enrollment - UNKNOWN Mar, [place] [address] Mar, Anxiety disorder, [place] [address] unspecified F41.9 ; Alcohol abuse, in remission F10.10 ; Hoarseness or changing voice R49.9 and Major depressive disorder, single episode, unspecified F32.[address] Feb, Lipoma of torso D17.1 ; [place] [address] Alcohol abuse, in remission F10.10 and Anxiety disorder, unspecified F41.[address] Jan, [place] [address] Jan, [place] [address] Dec, [place] [address] Dec, [place] [address] Dec, [place] [address] liver K70.30 ; Anxiety disorder, unspecified F41.9 and Major depressive disorder, single episode, unspecified F32.[address] Nov, Alcoholism /[place] [address] 303.90 ; Alcoholic cirrhosis of liver 571.2 and Anxiety 300.[address] Nov, [place] [address] Nov, Alcoholism /[place] [address] 303.90 ; Alcoholic cirrhosis of liver 571.2 ; C. difficile diarrhea 008.45 and Seizures 780.[address] Nov, [place] [address] Nov, [place] [address] Nov, Alcoholism /[place] [address] 303.90 ; Alcoholic cirrhosis of liver 571.2 ; HTN (hypertension) 401.9 and C. difficile diarrhea 008.[address] Oct, [place] [address] Oct, Alcoholism /[place] [address] 303.90 and Alcoholic cirrhosis of liver 571.[address] Oct, [place] [address] Sep, [place] [address] Sep, [place] [address] Aug, [place] [address] Aug, [place] [address] Aug, [place] [address] Aug, Insomnia 780.52 ; [place] [address] Alcoholism /alcohol abuse 303.90 ; Anxiety 300.00 and Alcoholic cirrhosis of liver 571.[address] Aug, [place] [address] Aug, Alcoholism /[place] [address] 303.90 and Anxiety 300.00 Facilitated Enrollment - UNKNOWN Mar, [address] Mar, [place] [address] Mar, [place] [address] Mar, [place] [address] IMMUNIZATIONS No Known Immunizations SOCIAL HISTORY Never Assessed REASON FOR REFERRAL FUNCTIONAL STATUS PLAN OF CARE VITAL SIGNS MEDICATIONS Medication Instructions Dosage Frequency Start End Duration Status Date Date Propranolol HCl Orally Once a 1 tablet on 24h Feb, day(s) Active 10 MG day an empty 2018 stomach HydrOXYzine HCl Orally every 8 1 tablet as 8h 90 days Active 25 MG hrs needed PROCEDURES No Known procedures RESULTS No Results REASON FOR VISIT acute triage Insurance Providers [facility] Member Patient Patient Patient Patient Patient Subscriber Subscriber Subscriber Group Insurance Plan Plan Plan Plan ID Relationship Address Phone Name Date of ID Name Date of No Type Insurance Insurance Insurance Coverage to Subscriber Address Phone Name Dates FQ Slide [phone] FQ Slide self [place] [id number] A B [place] 02 [place] [address] [place] [facility] [place] [address] Medical 10 Medicaid [id number] [phone] Medicaid self [place] [id number] [facility] [address] [place] [address] FQHC Slide [phone] FQHC Slide self [place] [id number] A B [place] 02 A B [place] [facility] [address] [place] [address] Dental 25 Blue [phone] Blue self [place] [id number] Choice Opt [phone] Choice Opt [place] 8 Medical [facility] [address] FLC Slide [phone] [facility] Slide self [place] [id number] A Family [place] 02 [place] [address] Planning 0 Blue [phone] Blue self [place] [id number] Choice Opt [phone] Attn 83 Choice Opt [place] -WEA GG457 [place] [id number] [place] [facility] [address] Medicaid [phone] Medicaid self [place] [id number] Wrap [facility] 56 Wrap [place] [address] Case [phone] Case self [place] [id number] Management [place] [address] [place] [address] [facility] [phone] Medicaid self [place] [id number] [facility] [address] [place] [address] Blue [phone] Blue self [place] [id number] Choice Opt [phone] Choice Opt [place] 8 [facility] [address] MEDICAL (GENERAL) HISTORY Type Description Date Medical [...] drug induced coma 11/08/14 Hospitalization History [facility]requ[facility] 10/2014 Hospitalization History [facility] ETOH with drawl 2016 Hospitalization History [facility] acute ETOH withdrawl 04/2017 Hospitalization History syncope 12/2017
--- OUTSIDE RECORDS SUMMARY | 2018-04-14 12:23 | XMS REPORT ---
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 75763567 failure without coma Problem Anemia in other D63.8 Active 115849400 chronic diseases classified elsewhere Problem Alcohol dependence, F10.20 Active 21641592 uncomplicated Problem Alcohol dependence F10.288 Active 62356812 with other alcohol-induced disorder Problem Other obesity due E66.09 Active 078035253 to excess calories Problem 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 Problem Cigarette nicotine F17.210 Active 97585984 dependence without complication Problem Body mass index Z68.34 Active 121594295 (BMI) of 34.0-34.9 in adult Problem Major depressive F32.9 Active 91567369 disorder, single episode, unspecified Problem Lipoma of torso D17.1 Active 60043424 Problem Mixed E78.2 Active 717341807 hyperlipidemia Problem Alcoholic cirrhosis K70.30 Active 600137471 of liver Problem Atopic dermatitis L20.9 Active 23322558 Problem Anxiety disorder, F41.9 Active 369123814 unspecified Problem Alcohol abuse, in F10.10 Active 037559833 remission ALLERGIES No Information ENCOUNTERS Encounter Location Date Diagnosis Formerly [facility], [facility] [address] [place] [address] Mar, [place] [address] Formerly [facility], [facility] [address] [place] [address] Feb, [place] [address] Formerly [facility], [facility] [address] [facility] Feb, Tremor R25.1 ; [address] [place], [place] pain N50.82 [place] [address] the groin R19.[address] Feb, [place] [address] [facility] [address] [place] [address] Feb, [place] [address] [place] [address] [facility] Feb, Tremor R25.1 [place] [address] Formerly [facility] [address] [place] [address] Feb, [place] [address] Formerly [facility] [address] [place] [address] Feb, [place] [address] [place] [address] [place] [address] Feb, [place] [address] [place] [address] [place] [address] Feb, Alcoholic hepatic failure [place] without coma K70.40 and [address] Tremor R25.1 [facility] [address] [place] [address] Jan, [place] [address] Jan, [place] [address] Jan, [place] [address] Formerly [facility] [address] [place] [address] Dec, [place] [address] Former[facility] [address] [place] [address] Dec, [place] [address] Dec, [place] [address] Formerly [facility] [address] [place] [address] Dec, [place] [address] [facility]ly [facility] [address] [place] [address] Dec, [place] [address] Formerly [facility] [address] [place] [address] Dec, [place] [address] Dec, Alcoholic cirrhosis of [place] liver K70.30 ; Increased [address] ammonia level R79.89 and Encounter for immunization Z23 Formerly [facility] [address] [place] [address] Dec, [place] [address] [facility] [address] [place] [address] Dec, Alcoholic hepatic failure [place] without coma K70.40 [address] [facility] [address] [place] [address] Dec, Alcoholic hepatic failure [place] without coma K70.40 [address] Formerly [facility] [address] [place] [address] Dec, Alcoholic cirrhosis of Street [place] liver K70.30 [address] Formerly [facility] [address] [place] [address] Dec, [place] [address] Case Management [address] [place], [place] [address] Formerly [facility] [address] [place] [address] Dec, Tremor R25.1 and Alcoholic [place] hepatic failure without [address] coma K70.40 Formerly [facility] [address] [place] [address] Dec, [place] [address] [place] [address] [place] [address] Dec, Tremor R25.1 [place] [address] [address] Nov, [facility] [place] [address] Formerly [facility] [address] [place] [address] Nov, Tremor R25.1 and Alcoholic [place] cirrhosis of liver K70.30 [address] Formerly [facility] [address] [place] [address] Nov, [place] [address] Formerly [facility] [address] [place] [address] [place], [place] [address] [facility] [address] [facility] Nov, [address] [place] [address] Formerly [facility] [address] [place] [address] Oct, Tremor R25.1 and Alcohol [place] dependence with other [address] alcohol-induced disorder F10.288 Formerly [facility] [address] [place] [address] Oct, [place] [address] [place] [facility] [address] Oct, [place] [address] [place] [facility] [address] Oct, [place] [address] [address] Oct, [facility] [place] [address] Formerly [facility] [address] [place] [address] [place], [place] [address] [facility] [address] [place] [address] Sep, [place] [address] Sep, [place] [address] Sep, Alcoholic cirrhosis of Street [place] liver K70.30 ; Alcohol [address] abuse, in remission F10.10 ; Major depressive disorder, single episode, unspecified F32.9 ; Mixed hyperlipidemia E78.2 and Cigarette nicotine dependence without complication F17.[address] Sep, [place] [address] REPLACED BY [facility] Business Office [address] [place], [place] [address] July, [place] [address] Jun, [facility] [place] [address] [place] [address] Jun, [place] [address] Jun, [place] [address] Jun, [facility] [place] [address] Jun, Alcohol abuse, [place] [address] remission F10.10 ; Alcoholic cirrhosis of liver K70.30 ; Anxiety disorder, unspecified F41.9 ; Major depressive disorder, single episode, unspecified F32.9 ; Skin lesion of face L98.9 ; Cigarette nicotine dependence without complication F17.210 ; Colon cancer screening Z12.11 ; Other obesity due to excess calories E66.09 and Body mass index (BMI) of 34.0-34.9 in adult Z68.[address] May, [place] [address] May, Health [place] [address] [facility] [address] [facility] Apr, [place] [address] [facility] [address] [facility] Apr, [place] [address] Mar, Alcohol-induced Health Medical [place] polyneuropathy G62.1 [address] Mar, [place] [address] [facility] [address] Aug, [place] [address] [facility] [address] July, [place] [address] [facility] [address] Jun, [place] [address] [facility] [address] Jun, [place] [address] [facility] [address] Jun, [place] [address] [facility] [address] May, [place] [address] [facility] [address] May, Alcohol abuse, [place] [address] remission F10.10 ; Major depressive disorder, single episode, unspecified F32.9 and Alcoholic cirrhosis of liver K70.[address] Apr, [place] [address] [facility] [address] Mar, [place] [address] [facility] [address] Mar, [place] [address] [facility] [address] Mar, [place] [address] [facility] [address] Mar, Alcohol abuse, [place] [address] remission F10.10 ; Anxiety disorder, unspecified F41.9 ; Alcoholic hepatic failure without coma K70.40 ; Alcohol dependence with alcohol-induced persisting dementia F10.27 ; Anemia in other chronic diseases classified elsewhere D63.8 and Atopic dermatitis L20.[address] Feb, [place] [address] [facility] [address] Jan, [place] [address] [facility] [address] Dec, [place] [address] Nov, [place] [address] [facility] [address] Oct, [place] [address] [facility] [address] Oct, Lipoma of torso D17.1 [place] [address] Major depressive disorder, single episode, unspecified F32.[address] Aug, Lipoma of torso D17.1 ; [place] [address] Mixed hyperlipidemia E78.2 and Elevated liver enzymes R74.8 [place] [address] Aug, [place] [address] [place] [address] July, [place] [address] [place] [address] Jun, [place] [address] Jun, [place] [address] disorders Z13.220 ; Major depressive disorder, single episode, unspecified F32.9 ; Other fatigue R53.83 and Screening examination for sexually transmitted disease Z11.3 [place] [address] Jun, [place] [address] Jun, [place] [address] May, [place] [address] May, [place] [address] May, [place] [address] Facilitated Enrollment - UNKNOWN Mar, [address] Mar, Anxiety disorder, [place] [address] unspecified F41.9 ; Alcohol abuse, in remission F10.10 ; Hoarseness or changing voice R49.9 and Major depressive disorder, single episode, unspecified F32.[address] Feb, Lipoma of torso D17.1 ; [place] [address] Alcohol abuse, in remission F10.10 and Anxiety disorder, unspecified F41.[address] Jan, [place] [address] Jan, [place] [address] Formerly [facility] [address] [facility] Dec, [place] [address] Formerly [facility] [address] [facility] Dec, [place] [address] Dec, [place] [address] liver K70.30 ; Anxiety disorder, unspecified F41.9 and Major depressive disorder, single episode, unspecified F32.[address] Nov, Alcoholism /[place] [address] 303.90 ; Alcoholic cirrhosis of liver 571.2 and Anxiety 300.[address] Nov, [place] [address] Nov, Alcoholism /[place] [address] 303.90 ; Alcoholic cirrhosis of liver 571.2 ; C. difficile diarrhea 008.45 and Seizures 780.39 Formerly [facility] [address] Nov, [place] [address] Nov, [place] [address] Nov, Alcoholism /[place] [address] 303.90 ; Alcoholic cirrhosis of liver 571.2 ; HTN (hypertension) 401.9 and C. difficile diarrhea 008.[address] Oct, [place] [address] Oct, Alcoholism /[place] [address] 303.90 and Alcoholic cirrhosis of liver 571.[address] Oct, [place] [address] Sep, [place] [address] Formerly [facility] [address] Sep, [place] [address] [place] [address] Aug, [place] [address] Aug, [place] [address] [place] [address] Aug, [place] [address] [place] [address] Aug, Insomnia 780.52 ; [place] [address] Alcoholism /alcohol abuse 303.90 ; Anxiety 300.00 and Alcoholic cirrhosis of liver 571.2 [place] [address] Aug, [place] [address] Aug, Alcoholism /[place] [address] 303.90 and Anxiety 300.00 Facilitated Enrollment - UNKNOWN Mar, [place] [address] Mar, [place] [address] [place] [address] [facility] Mar, [place] [address] Formerly [facility] [address] Mar, [place] [address] IMMUNIZATIONS No Known Immunizations SOCIAL HISTORY Never Assessed REASON FOR REFERRAL FUNCTIONAL STATUS PLAN OF CARE VITAL SIGNS MEDICATIONS Unknown Medications PROCEDURES No Known procedures RESULTS No Results REASON FOR VISIT Order Insurance Providers [facility] Member Patient Patient Patient Patient Patient Subscriber Subscriber Subscriber Group Insurance Plan Plan Plan Plan ID Relationship Address Phone Name Date of ID Name Date of No Type Insurance Insurance Insurance Coverage to Subscriber Address Phone Name Dates Medicaid [phone] Medicaid self [place] [id number] [facility] [address] [place] [address] [employer] Slide [phone] [employer] Slide self [place] [id number] A Family [place] 02 [place] [address] Planning 0 Blue [phone] Blue self [place] [id number] Choice [place] [id number] Choice Opt [place] [address] [place] [address] FQHC Slide [phone] FQHC Slide self [place] [id number] A B [place] 02 A B [place] [address] [place] [address] Medical 10 Blue [phone] Blue self [place] [id number] Choice Opt 9255 Attn 83 Choice Opt [place] -WEA GG457 [place] Claims [id number] [place] [facility] [address] Medicaid [id number] [phone] Medicaid self [place] [id number] [facility] [address] [place] [address] Medicaid [id number] [phone] Medicaid self [place] [id number] Wrap [facility] 56 Wrap [place] [address] FQHC Slide [phone] FQHC Slide self [place] [id number] A B [place] 02 [place] [address] [place] [address] Dental 25 Blue [phone] Blue self [place] [id number] Choice Opt [id number] [phone] Choice Opt [place] [address] Medical [place] [address] Case [phone] Case self [place] [id number] Management [place] 02 Management [facility] [address] [facility] MEDICAL (GENERAL) HISTORY Type Description Date Medical [...] 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
[2018-04-14] MEDS ORDERED: Thiamine IV 100 MG, Folic Acid IV* 1 MG, Multiple Vitamin IV ADULT* 10 ML in D5NS 0.9% ... IV ONE (12:31)
[2018-04-14] MEDS ORDERED: NS 0.9% 1000 ML* 1,000 ML IV ONE (12:32)
--- NOTE | 2018-04-14 12:32 | ED ---
Substance Abuse/Use - HPI Summary HPI Summary: Patient is a 52 y/o M presenting to ED with complaints of alcohol withdrawal Sx. He states that he has been experiencing palpitations, diaphoresis, hot/cold flashes, tremors, general discomfort, N/V, confusion. Patient claims that he has been in and out of sobriety for the past ten years. He states that he typically binge drinks, noting that he went on a five day drinking binge, starting six days ago, ending two days ago. Patient claims that he was consuming a quart of vodka daily. Patient also notes that he has a left pelvic area hernia, states that this was diagnosed via US last week. No Hx of HTN, diabetes. Hx of cirrhosis. alcoholic hepatitis, peripheral neuropathy. Patient smokes cigarettes and engages in recreational marijuana usage. Associated severity is rated 7/10 on triage, nothing is noted to aggravate/alleviate Sx. Home medications and allergies are reviewed. - History Of Current Complaint Chief Complaint: EDDetoxRequest Stated Complaint: DETOX Hx Obtained From: Patient Onset/Duration of Drug/ETOH Abuse: Days - five day drinking binge Ingestion History: Type/Name Of Drug - alcohol, Amount Ingested - quart of vodka daily Overdose Characteristics: Oral Timing Of Abuse: Binge Use - recent 5 day binge Severity Currently: Severe - 7/10 Aggravating Factor(s): Nothing Alleviating Factor(s): Nothing Associated Signs And Symptoms: Confused, Palpitations, Diaphoretic, Tremulous, Nausea, Vomiting, Other: - POSITIVE - GENERAL DISCOMFORT, HOT/COLD FLASHES - Allergies/Home Medications Allergies/Adverse Reactions: Allergies Allergy/AdvReac Type Severity Reaction Status Date / Time citalopram [From Celexa] Allergy Hives Verified 04/14/18 12:31 Home Medications: Home Medications Diazepam TAB(*) [Valium TAB(*)] 5 mg PO TID PRN 04/14/18 [History Confirmed ] Gabapentin TAB(NF) [Neurontin 600 mg TAB(NF)] 600 mg PO BID 04/14/18 [History Confirmed 04/14/18] Mirtazapine TAB* [Remeron TAB*] 7.5 mg PO BEDTIME 04/14/18 [History Confirmed ] Propranolol TAB* [Inderal TAB*] 10 mg PO DAILY 04/14/18 [History Confirmed 04/14] QUEtiapine TAB* [Seroquel 25 MG TAB*] 25 mg PO DAILY 04/14/18 [History Confirmed 04/14/18] levETIRAcetam TAB* [Keppra TAB*] 500 mg PO BID 04/14/18 [History Confirmed 04/14] PMH/Surg Hx/FS Hx/Imm Hx Endocrine/Hematology History: Denies: Hx Diabetes, Hx Thyroid Disease Cardiovascular History: Reports: Hx Hypertension Denies: Hx Congestive Heart Failure Respiratory History: Denies: Hx Asthma, Hx Chronic Obstructive Pulmonary Disease (COPD) GI History: Reports: Hx Cirrhosis, Other GI Disorders - Hx of alcoholic hepatitis Denies: Hx Ulcer Musculoskeletal History: Reports: Other Musculoskeletal History - reports hx of left knee surgery Sensory History: Reports: Hx Contacts or Glasses Opthamlomology History: Reports: Hx Contacts or Glasses Neurological History: Reports: Hx Migraine - rare, Hx Peripheral Neuropathy, Hx Seizures, Other Neuro Impairments/Disorders - concussions Psychiatric History: Reports: Hx Anxiety, Hx Depression, Hx Substance Abuse Denies: Hx Eating Disorder, Hx of Violent Episodes Against Others - Surgical History Surgery Procedure, Year, and Place: hx of left knee surgery Hx Anesthesia Reactions: No Infectious Disease History: No Infectious Disease History: Denies: Hx Clostridium Difficile, Hx Hepatitis, Hx Human Immunodeficiency Virus (HIV), Hx of Known/Suspected MRSA, Hx Shingles, Hx Tuberculosis, Hx Known/ Suspected VRE, Hx Known/Suspected VRSA, History Other Infectious Disease, Traveled Outside the [place] in Last 30 Days - Family History Known Family History: Positive: Other - Depression, alcohol abuse Family History: FHx of depression. FHx of alcohol abuse - Social History Alcohol Use: Daily Alcohol Amount: 04/14/18 - binge drinking period of 5 days, 1 quart of vodka daily Hx Substance Use: No Substance Use Type: Reports: None, Other Substance Use Comment - Amount & Last Used: occasionally, pt unable to verbalize clear answers now Smoking Status (MU): Former Smoker Type: Cigarettes Amount Used/How Often: 5 cigs/day - weaning down Have You Smoked in the Last Year: No Review of Systems Positive: Skin Diaphoresis, Other - POSITIVE - HOT/COLD FLASHES, GENERAL DISCOMFORT Positive: Palpitations Positive: Vomiting, Nausea Neurological: Other - POSITIVE - CONFUSION, TREMORS All Other Systems Reviewed And Are Negative: Yes Physical Exam - Summary Physical Exam Summary: VITAL SIGNS: Reviewed. GENERAL: Patient is a well-developed and nourished male who is lying comfortable in the stretcher. Patient is not in any acute respiratory distress. Alcohol on breath is noted. HEAD AND FACE: No signs of trauma. No ecchymosis, hematomas or skull depressions. No sinus tenderness. EYES: PERRLA, EOMI x 2, No injected conjunctiva, no nystagmus. EARS: Hearing grossly intact. Ear canals and tympanic membranes are within normal limits. MOUTH: Oropharynx within normal limits. NECK: Supple, trachea is midline, no adenopathy, no JVD, no carotid bruit, no c- spine tenderness, neck with full ROM. CHEST: Symmetric, no tenderness at palpation LUNGS: Clear to auscultation bilaterally. No wheezing or crackles. CVS: Regular rate and rhythm, S1 and S2 present, no murmurs or gallops appreciated. ABDOMEN: Soft, non-tender. No signs of distention. No rebound no guarding, and no masses palpated. Bowel sounds are normal. EXTREMITIES: FROM in all major joints, no edema, no cyanosis or clubbing. NEURO: Alert and oriented x 3. No acute neurological deficits. Speech is normal and follows commands. No asterixis noted. SKIN: Dry and warm Triage Information Reviewed: Yes Vital Signs On Initial Exam: Initial Vitals Temp Pulse Resp BP Pulse Ox 99 F 92 20 150/85 97 04/14/18 12:15 04/14/18 12:15 04/14/18 12:15 04/14/18 12:15 04/14/18 12:15 Vital Signs Reviewed: Yes Diagnostics - Vital Signs Vital Signs Temp Pulse Resp BP Pulse Ox 04/14/18 12:15 99 F 92 20 150/85 97 - Laboratory Result Diagrams: 04/14/18 12:40 04/14/18 12:40 Lab Statement: Any lab studies that have been ordered have been reviewed, and results considered in the medical decision making process. - Radiology CXR Radiology Interpretation Completed By: Radiologist Summary of Radiographic Findings: IMPRESSION: SMALL RIGHT UPPER LOBE INFILTRATE. THIS REPORT WAS REVIEWED BY ED PHYSICIAN. - EKG 1249 Cardiac Rate: NL - rate of 84 BPM EKG Rhythm: Sinus Rhythm EKG Comparison: No Significant Change - compared to 11/18/14 EKG Summary of EKG Findings: EKG showed sinus rhythm with rate of 84 BPM, no ST elevation, no significant changes when compared to 11/18/14 EKG Re-Evaluation - Re-Evaluation First Eval Re-Evaluation Time: 13:33 Comment: Results of labs and tests were discussed with patient. Will discuss admission with hospitalist. Second Eval Re-Evaluation Time: 13:55 Comment: Informed patient of acceptance to hospital. Course/Dx - Course Assessment/Plan: Patient is a 52 y/o M presenting to ED with complaints of alcohol withdrawal Sx. He states that he has been experiencing palpitations, diaphoresis, hot/cold flashes, tremors, general discomfort, N/V, confusion. Patient claims that he has been in and out of sobriety for the past ten years. He states that he typically binge drinks, noting that he went on a five day drinking binge, starting six days ago, ending two days ago. Patient claims that he was consuming a quart of vodka daily. Patient also notes that he has a left pelvic area hernia, states that this was diagnosed via US last week. No Hx of HTN, diabetes. Hx of cirrhosis. alcoholic hepatitis, peripheral neuropathy. Patient smokes cigarettes and engages in recreational marijuana usage. Associated severity is rated 7/10 on triage, nothing is noted to aggravate/ alleviate Sx. Home medications and allergies are reviewed. Blood work without any significant abnormality except for creatinine of 0.6, glucose 142, AST 108, AST is 67, alkaline phosphatase is 123, ammonia level is 90, serum alcohol is a 192. In the ED course the patient is a little anxious and agitated therefore the patient was given Ativan 1 mg IV. The patient also was given banana bag. Since the patient has history of seizures when he is in withdrawal, I discussed my physical exam and findings with Dr. Ortiz who accepted the patient for admission. Patient is hemodynamically stable alert and oriented 3. - Diagnoses Provider Diagnoses: Alcohol withdrawal, Serum ammonia increased - Physician Notifications Discussed Care Of Patient With: Labmerto Ortiz Time Discussed With Above Provider: 13:53 Instructed by Provider To: Other - Patient's case was discussed with Dr. Ortiz at 1353, Dr. Ortiz states that he accepts for admission Discharge - Sign-Out/Discharge Documenting (check all that apply): Patient Departure - admit - Discharge Plan Condition: Stable Disposition: ADMITTED TO [facility] Referrals: No Primary Care Phys,NOPCP [Primary Care Provider] - - Attestation Statements Document Initiated by Scribe: Yes Documenting Scribe: DILIA ZAMAN Provider For Whom Scribe is Documenting (Include Credential): MASTER LINDSEY MD Scribe Attestation: I, DILIA ZAMAN , scribed for MASTER LIDNSEY MD on 04/14/18 at 1523. Status of Scribe Document: Ready
[2018-04-14] MEDS ORDERED: Ondansetron INJ* 2 MG/ML VIAL IV ONE (12:34)
[2018-04-14 13:06] LABS: Hematocrit 42 % (42-52); Hemoglobin 14.5 g/dl (14.0-18.0); Mean Corpuscular HGB Conc 34 g/dl (31-36); Mean Corpuscular Hemoglobin 32 pg (27-31); Mean Corpuscular Volume 92 fL (80-94); Mean Platelet Volume 10.4 fL (7.4-10.4); Platelet Count 88 10^3/ul (150-450); Red Blood Count 4.57 10^6/ul (4.00-5.40); Red Cell Distribution Width 15 % (10.5-15); White Blood Count 5.4 10^3/ul (3.5-10.8)
[2018-04-14 13:27] LABS: ALT 67 U/L (7-52); AST 108 U/L (13-39); Albumin/Globulin Ratio 1.3 (1-3); Alkaline Phosphatase 123 U/L (34-104); Anion Gap 7 mmol/L (2-11); BUN/Creatinine Ratio 24.2 (8-20); Blood Urea Nitrogen 15 mg/dL (6-24); CO2 Carbon Dioxide 27 mmol/L (22-32); Calcium 8.8 mg/dL (8.6-10.3); Chloride 108 mmol/L (101-111); EGFR Non-African American 136.2 (>60); Glucose 146 mg/dL (70-100); Potassium 3.5 mmol/L (3.5-5.0); Sodium 142 mmol/L (135-145)
[2018-04-14 13:29] LABS: ABS Basophils 0.1 10^3/ul (0-0.2); ABS Eosinophils 0.2 10^3/ul (0-0.6); ABS Lymphocytes 1.5 10^3/ul (1.0-4.8); ABS Monocytes 0.4 10^3/ul (0-0.8); ABS Neutrophils 3.3 10^3/ul (1.5-7.7); ABS Nucleated RBC 0 10^3/ul; Acetaminophen < 15 mcg/mL; Alcohol 192 mg/dL (<10); Eosinophil % 3.2 %; Lymphocyte % 27.4 %; Nucleated Red Blood Cells % 0.1; Salicylate < 2.50 mg/dL (<30)
[2018-04-14] MEDS ORDERED: LORazepam INJ* 2 MG/ML 1 ML VIAL IV PUSH ONE (13:54)
[2018-04-14] MEDS ORDERED: Acetaminophen TAB* 325 MG PO PRN (16:12)
[2018-04-14] MEDS ORDERED: Thiamine IV* 100 MG/ML 2 ML VIAL IM ONE (16:12)
[2018-04-14 16:33] LABS: INR 1.07 (0.77-1.02)
[2018-04-14 17:09] LABS: Total Bilirubin 0.9 mg/dL (0.2-1.0)
[2018-04-14 17:49] LABS: Urine Appearance Cloudy; Urine Bacteria 1+ (Absent); Urine Bilirubin Negative (Negative); Urine Blood Negative (Negative); Urine Color Amber; Urine Glucose Negative (Negative); Urine Ketones Negative (Negative); Urine Nitrite Positive (Negative); Urine Protein 1+(30 mg/dL) (Negative); Urine Red Blood Cell Absent (Absent); Urine Specific Gravity 1.024 (1.010-1.030); Urine Urobilinogen Positive (Negative); Urine White Blood Cell 1+(6-10/hpf) (Absent)
[2018-04-14] MEDS ORDERED: Ondansetron INJ* 2 MG/ML VIAL IV PRN (18:00)
[2018-04-14 18:02] LABS: Barbiturates Urine Screen None Detected (None Detect); Benzodiazepine Urine Screen None Detected (None Detect); Urine Cannabinoids Screen Presumptive Positive (None Detect)
[2018-04-14] MEDS ORDERED: LORazepam TAB(*) 1 MG ONE (18:08)
[2018-04-14] MEDS ORDERED: Ondansetron INJ* 2 MG/ML VIAL ONE (18:08)
[2018-04-14] MEDS: LORazepam TAB(*) 1 MG PO SCH ×2 (18:10→21:01)
[2018-04-14 18:16] LABS: Magnesium 1.7 mg/dL (1.9-2.7)
--- NOTE | 2018-04-14 18:23 | HP ---
CONTINUATION ADDENDUM NOW INCLUDED ON THIS REPORT ADMISSION HISTORY AND PHYSICAL: DATE OF ADMISSION: 04/14/18 PRIMARY CARE PROVIDER: Moirah Romano NP ATTENDING PHYSICIAN: Dr. Lamberto Ortiz.* (DICTATED BY ASHU SHEFFIELD) CHIEF COMPLAINT: Acute alcohol withdrawal. HISTORY OF PRESENT ILLNESS: Mr. Marques is a 52-year-old male, who presents to the ER today for alcohol withdrawal. He states that the last time he drank was Wednesday and he drank late into the night and isestimating his last drink to have been Wednesday morning at around 2 a.m. In the last 24 hours, he has had a "tremble," increased blood pressure, and he has felt palpitations. He complains of nausea and diarrhea and decreased sleep. He states that he was binge drinking for the last 5 days, drinking approximately 1 L of vodka per day. In the last 10 years, he has had difficulty with alcohol and has quit and resumed drinking multiple times throughout the last 10 years. He reports having had withdrawal seizures 2 times in the last 10 years. For this he was put on Keppra to avoid withdrawal seizures. The patient complains of chills, sweats, headache. He states his breathing feels labored and he is anxious. He continues to feel a tremble and feels as if his blood pressure is increased and he is having palpitations. He has a history of bilateral upper and lower extremity neuropathy and complains of numbness in those areas, which is his baseline. He also states that he was recently diagnosed with a hernia in his left groin area, which he states he is able to reduce on his own, but does cause him a small amount of discomfort. His primary care physician ordered an ultrasound for this recently. While in the emergency department, the patient was given lorazepam, Zofran, thiamine, folic acid, and multivitamins. Laboratory studies were done and they are discussed below. Chest x-ray was also performed. The hospitalist team was asked to evaluate him for admission. PAST MEDICAL HISTORY: Alcoholic hepatitis, chronically elevated liver function tests, hypertension, peripheral neuropathy, gastroesophageal reflux disease, anxiety, depression, history of seizures. The patient states that he has only had seizures when withdrawing from alcohol. It is noted that he is on Keppra. The patient states that he was put on Keppra to avoid alcohol withdrawal seizures. PAST SURGICAL HISTORY: Left knee, left shoulder, lipoma removal. HOME MEDICATIONS: 1. Seroquel 25 mg p.o. daily. 2. Keppra 500 mg p.o. b.i.d. 3. Neurontin 600 mg p.o. b.i.d. 4. Remeron 7.5 mg p.o. at bedtime. 5. Inderal 10 mg p.o. daily. 6. Valium 5 mg p.o. t.i.d. ALLERGIES: CITALOPRAM, hives. FAMILY HISTORY: Positive for depression and alcohol abuse. SOCIAL HISTORY: The patient states that he smokes about 10 cigarettes per day. As far as alcohol use, the patient is an intermittent drinker. He states that he drinks about a quart of vodka per day when he is drinking, but then will go 2 to 3 months without drinking and then will start up again. He admits to using marijuana daily, but does not use any other recreational drugs. 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 He is and he has 4 children. In the event that he is unable to make his own medical decisions, he has appointed his son, Dilshad Marques, to make decisions for him. REVIEW OF SYSTEMS: A 10-point review of systems was performed and all the pertinent positives and negatives are in the HPI, all other systems are negative. PHYSICAL EXAMINATION GENERAL: Mr. Marques is a well-developed, well-nourished obese white male, who is sitting up in bed, in no acute distress. He appears his stated age. He appears anxious, but is resting comfortably. VITAL SIGNS: Temperature is 99 degrees, heart rate is 84, respiratory rate is 20, oxygen saturation is 95% on room air, blood pressure is 166/85. HEENT: Visual colby are grossly intact. Pupils are equally round and reactive to light and accommodation. Extraocular movements are intact without nystagmus. Sclerae without icterus, although they are injected. Hearing grossly intact. External auditory canals patent, free of cerumen. Tympanic membranes intact with visible landmarks. Nares patent. Oral mucous membranes moist and without lesion. NECK: Full range of motion. Nontender to palpation. Thyroid not palpable. Trachea midline. No lymphadenopathy. RESPIRATORY: Symmetrical chest expansion. No use of accessory muscles. Lungs are clear to auscultation. No rhonchi, wheezes, or rubs. CARDIOVASCULAR: Regular rate and rhythm. S1, S2 present. No murmurs, rubs, or gallops. No JVD. No carotid bruits. ABDOMEN: Bowel sounds in all 4 quadrants. Abdomen is soft, slightly tender to palpation in the right upper quadrant. Liver is palpable. Spleen is not palpable. MUSCULOSKELETAL: No clubbing or cyanosis. No pain or deformities. EXTREMITIES: Skin is warm and smooth. No edema. Without tremor. Radial and pedal pulses 2+ bilaterally. NEURO: A and O x3. Moves all extremities. Motor strength is 5/5 in upper and lower extremities. The patient is appropriately answering questions and communicating. He appears anxious but is not confused. SKIN: There is a lipoma posterior on the midline of the thoracic spine. The patient has had this assessed previously and it is not bothering him. DIAGNOSTIC STUDIES/LABORATORY TESTS: WBC 5.5, RBC 4.57, Hgb 14.5, HCT 42, platelet count 88,000. INR 1.07. Sodium 142, potassium 3.5, chloride 108, carbon dioxide 27, BUN 15, creatinine 0.62. AST 108, ALT 67, alk phos 123. Ammonia 90. Serum alcohol 192. Hepatitis interpret 5.04. Chest x-ray, impression: Small right upper lobe infiltrate. ASSESSMENT AND PLAN: Mr. Marques is a 52-year-old male with a past medical history as described above who presents to the ER today for alcohol withdrawal. The patient will be admitted observation for: 1. Acute alcohol withdrawal. The patient will be placed on observation status on telemetry. He will resume a regular diet. We will continue to monitor his ammonia levels and assess for encephalopathic changes. Social work has been consulted; patient wishes to attend an inpatient rehabilitation facility. Thiamine, folic acid, and multivitamins have been ordered. The patient has been placed on [facility] protocol. Librium 50 mg t.i.d. also ordered. Seizure precautions in place. 2. Tobacco abuse. Nicotine patch ordered. 3. Hypertension. Continue home medication, propranolol. 4. Anxiety and depression. Continue home medications. 5. FEN. Regular diet. 6. Code status. Full code. 7. DVT prophylaxis. The patient is low risk. TEDs ordered. TIME SPENT: Approximately 65 minutes were spent on this admission, greater than half of that spent with the patient and caregiver obtaining history, performing physical and reviewing the plan of care. This case has been reviewed with my attending, Dr. Ortiz, who is in agreement with the plan of care. ASHU SHEFFIELD [id number]/[facility]PS #: [id number]/CPS #: [id number] PRAVEEN
--- NOTE | 2018-04-14 19:29 | HP ---
HISTORY AND PHYSICAL: ADDENDUM: DATE OF ADMISSION: 04/14/18 HISTORY OF PRESENT ILLNESS: While in the emergency department, the patient was given lorazepam, Zofran, thiamine, folic acid, and multivitamins. Laboratory studies were done and they are discussed below. Chest x-ray was also performed. The hospitalist team was asked to evaluate him for admission. FAMILY HISTORY: Positive for depression and alcohol abuse. SOCIAL HISTORY: The patient states that he smokes about 10 cigarettes per day. As far as alcohol use is concerned, the patient is an intermittent drinker. He states that he drinks about a quart of vodka per day when he is drinking, but then will go 2 to 3 months without drinking and then will start up again. He admits to using marijuana daily, but does not use any other recreational drugs. 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 In the event that he is unable to make his own medical decisions, he has appointed his son, Dilshad Marques, to make decisions for him. REVIEW OF SYSTEMS: A 10-point review of systems was performed and all the pertinent positives and negatives are in the HPI, all other systems are negative. PHYSICAL EXAMINATION GENERAL: Mr. Marques is a well-developed, well-nourished obese white male, who is sitting up in bed, in no acute distress. He appears his stated age. He appears anxious, but is resting comfortably. VITAL SIGNS: Temperature is 99 degrees, heart rate is 84, respiratory rate is 20, oxygen saturation is 95% on room air, blood pressure is 166/85. HEENT: Visual colby are grossly intact. Pupils are equally round and reactive to light and accommodation. Extraocular movements are intact without nystagmus. Sclerae without icterus, although they are injected. Hearing grossly intact. External auditory canals patent, free of cerumen. Tympanic membranes intact with visible landmarks. Nares patent. Oral mucous membranes moist and without lesion. NECK: Full range of motion. Nontender to palpation. Thyroid not palpable. Trachea midline. No lymphadenopathy. RESPIRATORY: Symmetrical chest expansion. No use of accessory muscles. Lungs are clear to auscultation. No rhonchi, wheezes, or rubs. CARDIOVASCULAR: Regular rate and rhythm. S1, S2 present. No murmurs, rubs, or gallops. No JVD. No carotid bruits. ABDOMEN: Bowel sounds in all 4 quadrants. Abdomen is soft, slightly tender to palpation in the right upper quadrant. Liver is palpable. Spleen is not palpable. MUSCULOSKELETAL: No clubbing or cyanosis. No pain or deformities. EXTREMITIES: Skin is warm and smooth. No edema. Radial and pedal pulses 2+ bilaterally. NEURO: A and O x3. Moves all extremities. Motor strength is 5/5 in upper and lower extremities. The patient is appropriately answering questions and communicating. He appears anxious but is not confused. SKIN: There is a lipoma posterior on the midline of the thoracic spine. The patient has had this assessed previously and it is not bothering him. DIAGNOSTIC STUDIES/LABORATORY TESTS: WBC 5.5, RBC 4.57, Hgb 14.5, HCT 42, platelet count 88,000. INR 1.07. Sodium 142, potassium 3.5, chloride 108, carbon dioxide 27, BUN 15, creatinine 0.62. AST 108, ALT 67, alk phos 123. Ammonia 90. Serum alcohol 192. Hepatitis interpret 5.04. Chest x-ray, impression: Small right upper lobe infiltrate. ASSESSMENT AND PLAN: Mr. Marques is a 52-year-old male with a past medical history as described above who presents to the ER today for alcohol withdrawal. The patient will be admitted observation for: 1. Acute alcohol withdrawal. The patient will be placed on observation status on telemetry. He will resume a regular diet. We will continue to monitor his ammonia levels and assess for encephalopathic changes. Social work has been consulted. Thiamine, folic acid, and multivitamins have been ordered. The patient has been placed on [facility] protocol. Librium 50 mg t.i.d. also ordered. At discharge, please make a note for the patient to discuss with his primary care physician his use of Keppra as he reports never having had any seizures except when he was withdrawing from alcohol. 2. Tobacco abuse. Nicotine patch ordered. 3. Hypertension. Continue home medications, propranolol. 4. Anxiety and depression. Continue home medications. 5. FEN. Regular diet. 6. Code status. Full code. 7. DVT prophylaxis. The patient is low risk. TEDs ordered. TIME SPENT: Approximately 65 minutes were spent on this admission, greater than half of that spent with the patient and caregiver obtaining history, performing physical and reviewing the plan of care. This case has been reviewed with my attending, Dr. Ortiz, who is in agreement with the plan of care. ASHU SHEFFIELD [id number]/[facility] #: [id number] PRAVEEN
[2018-04-14] MEDS: chlordiazePOXIDE CAP* 25 MG PO SCH (19:37)
[2018-04-14] MEDS: levETIRAcetam TAB* 500 MG PO SCH (19:37)
[2018-04-14] MEDS: Gabapentin CAP(*) 300 MG PO SCH (19:38)
[2018-04-14] MEDS: Nicotine PATCH 14 MG/24 HR* PATCH TRANSDERM SCH (19:39)
[2018-04-14] MEDS: cefTRIAXone(*) 1 GM in NS 0.9% 50 ML* 50 ML IVPB SCH (19:39)
[2018-04-14] MEDS: hydrOXYzine HCL TAB* 25 MG PO PRN (21:00)
[2018-04-15] MEDS: hydrOXYzine HCL TAB* 25 MG PO PRN ×3 (04:09→20:26)
[2018-04-15 06:28] LABS: ABS Basophils 0 10^3/ul (0-0.2); ABS Eosinophils 0.6 10^3/ul (0-0.6); ABS Lymphocytes 1.4 10^3/ul (1.0-4.8); ABS Monocytes 0.5 10^3/ul (0-0.8); ABS Neutrophils 2.5 10^3/ul (1.5-7.7); ABS Nucleated RBC 0 10^3/ul; Hematocrit 37 % (42-52); Mean Corpuscular HGB Conc 35 g/dl (31-36); Mean Corpuscular Hemoglobin 32 pg (27-31); Mean Corpuscular Volume 93 fL (80-94); Mean Platelet Volume 10.2 fL (7.4-10.4); Nucleated Red Blood Cells % 0; Platelet Count 63 10^3/ul (150-450); Red Blood Count 4.04 10^6/ul (4.00-5.40); Red Cell Distribution Width 15 % (10.5-15); White Blood Count 5.1 10^3/ul (3.5-10.8)
[2018-04-15 06:44] LABS: Albumin 2.9 g/dL (3.2-5.2); Albumin/Globulin Ratio 1.1 (1-3); BUN/Creatinine Ratio 22.8 (8-20); Calcium 8.3 mg/dL (8.6-10.3); EGFR Non-African American 150.1 (>60); Globulin 2.6 g/dL (2-4); Potassium 3.4 mmol/L (3.5-5.0); Total Bilirubin 2.2 mg/dL (0.2-1.0); Total Protein 5.5 g/dL (6.4-8.9)
[2018-04-15] MEDS: Folic Acid TAB* 1 MG PO SCH (07:50)
[2018-04-15] MEDS: levETIRAcetam TAB* 500 MG PO SCH ×2 (07:50→20:27)
[2018-04-15] MEDS: Multivitamins/Minerals TAB PO SCH (07:50)
[2018-04-15] MEDS: Gabapentin CAP(*) 300 MG PO SCH ×2 (07:51→20:27)
[2018-04-15] MEDS: Propranolol TAB* 10 MG PO SCH (07:51)
[2018-04-15] MEDS: chlordiazePOXIDE CAP* 25 MG PO SCH ×3 (07:51→20:27)
[2018-04-15] MEDS: QUEtiapine TAB* 25 MG PO SCH (07:51)
[2018-04-15] MEDS: Thiamine TAB* 100 MG TAB PO SCH (07:51)
[2018-04-15] MEDS: LORazepam TAB(*) 1 MG PO SCH ×2 (07:51→22:11)
[2018-04-15] MEDS: Nicotine PATCH 14 MG/24 HR* PATCH TRANSDERM SCH (07:53)
[2018-04-15] MEDS ORDERED: chlordiazePOXIDE CAP* 25 MG PO ONE (08:20)
[2018-04-15] MEDS: Lactulose* 15 ML UDC PO SCH ×2 (13:04→20:26)
--- NOTE | 2018-04-15 15:24 | PN ---
Subjective Date of Service: 04/15/18 Interval History: Pt is doing well, but is very anxious. He is inquiring about length of stay, when and where he will attend inpatient rehab, etc. He states that he did not do great overnight, stating that he was assessed every 2hours, making sleep difficult. This morning, he states that he felt an "aura" and was hearing sounds; he thought this was a seizure prodrome. He did not seize overnight. He states that he feels "fuzzy" or disoriented, although he is oriented to place and time. Pt denies visual, auditory hallucinations, abd pain, n/v/d. He is still shaky. Denies langston, CP, SOB, muscle or joint aches. Objective Active Medications: Acetaminophen (Tylenol Tab*) 650 mg PO Q4H PRN Chlordiazepoxide (Librium Cap*) 50 mg PO TID [facility] Folic Acid (Folvite Tab*) 1 mg PO DAILY [facility] Gabapentin (Neurontin Cap(*)) 600 mg PO BID [facility] Hydroxyzine HCl (Atarax Tab*) 25 mg PO Q6H PRN Ceftriaxone Sodium 1 gm/ (Sodium Chloride) 50 mls @ 200 mls/hr IVPB Q24H [facility] Lactulose (Lactulose*) 15 ml PO TID [facility] Levetiracetam (Keppra Tab*) 500 mg PO BID [facility] Lorazepam (Ativan Tab(*)) 0 - 6 mg PO .PER [facility] PROTOCOL [facility]; Protocol Multivitamins/Minerals (Theragran/Minerals Tab*) 1 tab PO DAILY [facility] Nicotine (Nicotine Patch 14 Mg/24 Hr*) 1 patch TRANSDERM DAILY [facility] Ondansetron HCl (Zofran Inj*) 4 mg IV Q4H PRN Pharmacy Profile Note (Nicotine Patch Removal Note*) 1 note PATCH OFF 2100 [facility] Propranolol HCl (Inderal Tab*) 10 mg PO DAILY [facility] Quetiapine Fumarate (Seroquel Tab*) 25 mg PO DAILY [facility] Thiamine HCl (Vitamin B-1 Tab*) 100 mg PO DAILY [facility] Vital Signs: Temp Pulse Resp BP Pulse Ox 98.5 F 63 14 134/66 98 04/15/18 13:59 04/15/18 13:59 04/15/18 13:59 04/15/18 13:59 04/15/18 13:59 Oxygen Devices in Use Now: None Appearance: Pt is sitting up in chair. He is pleasant and cooperative, but appears anxious. Eyes: No Scleral Icterus, PERRLA Ears/Nose/Mouth/Throat: NL Teeth, Lips, Gums, Mucous Membranes Moist Neck: NL Appearance and Movements; NL JVP, Trachea Midline Respiratory: Symmetrical Chest Expansion and Respiratory Effort, Clear to Auscultation Cardiovascular: NL Sounds; No Murmurs; No JVD, RRR, - - Slight b/l LE nonpitting edema Abdominal: NL Sounds; No Tenderness; No Distention, - - Liver palpable; small, faint varicosity on upper abd at midline noted Extremities: No Clubbing, Cyanosis Neurological: Alert and Oriented x 3 Result Diagrams: 04/15/18 06:11 04/15/18 06:11 Assess/Plan/Problems-Billing Assessment: Pt is a 52yom who presents for alcohol withdrawal. - Patient Problems (1) Alcohol withdrawal Comment: -WAM protocol in place; pt has h/o withdrawal seizures -Continue folate, thiamine, multivitamin -Continue librium scheduled -Seizure precautions in place -Ammonia continues to elevate; lactulose ordered, recheck in a.m. and titrate to 1-2 loose stools/day -Social work consulted re: desire for placement in inpatient rehab facility (2) Urinary tract infection Comment: -Continue Ceftriaxone (3) Hypokalemia Comment: -Potassium 40meq PO ordered -Recheck CMP in a.m. (4) Gastroesophageal reflux disease Comment: -Stable; pt typically on pantoprazole at home -Ordered pantoprazole 40mg qd (5) Depression Comment: -Continue home medication regimen (6) Hypertension Comment: -Continue propranolol (7) DVT prophylaxis Comment: -Low risk; TEDS ordered (8) Full code status Current Visit: No Status: Acute Code(s): Z78.9 - OTHER SPECIFIED HEALTH STATUS SNOMED Code(s): 770254978 Status and Disposition: Discharge to inpatient rehabilitation facility when stable.
[2018-04-15] MEDS ORDERED: Potassium Chlor TAB* 20 MEQ TAB.ER PO ONE (15:43)
[2018-04-15] MEDS: cefTRIAXone(*) 1 GM in NS 0.9% 50 ML* 50 ML IVPB SCH (19:12)
[2018-04-15] MEDS: Nicotine Patch Removal NOTE PATCH OFF SCH (20:27)
[2018-04-16 05:43] LABS: ABS Basophils 0 10^3/ul (0-0.2); ABS Eosinophils 0.7 10^3/ul (0-0.6); ABS Lymphocytes 1.5 10^3/ul (1.0-4.8); ABS Monocytes 0.4 10^3/ul (0-0.8); ABS Nucleated RBC 0 10^3/ul; Eosinophil % 14.3 %; Hematocrit 37 % (42-52); Hemoglobin 12.7 g/dl (14.0-18.0); Mean Corpuscular HGB Conc 35 g/dl (31-36); Mean Corpuscular Hemoglobin 32 pg (27-31); Mean Corpuscular Volume 92 fL (80-94); Mean Platelet Volume 10.2 fL (7.4-10.4); Nucleated Red Blood Cells % 0.1; Platelet Count 54 10^3/ul (150-450); Red Blood Count 3.98 10^6/ul (4.00-5.40); Red Cell Distribution Width 15 % (10.5-15); White Blood Count 4.6 10^3/ul (3.5-10.8)
[2018-04-16 05:45] LABS: Albumin 2.9 g/dL (3.2-5.2); Calcium 8.5 mg/dL (8.6-10.3); Potassium 3.6 mmol/L (3.5-5.0); Total Bilirubin 1.6 mg/dL (0.2-1.0)
[2018-04-16 05:51] LABS: Albumin/Globulin Ratio 1.1 (1-3); BUN/Creatinine Ratio 21.3 (8-20); EGFR Non-African American 138.8 (>60); Globulin 2.7 g/dL (2-4); Total Protein 5.6 g/dL (6.4-8.9)
[2018-04-16] MEDS: Nicotine PATCH 14 MG/24 HR* PATCH TRANSDERM SCH (08:15)
[2018-04-16] MEDS: Lactulose* 15 ML UDC PO SCH ×3 (08:15→20:25)
[2018-04-16] MEDS: levETIRAcetam TAB* 500 MG PO SCH ×2 (08:16→20:26)
[2018-04-16] MEDS: chlordiazePOXIDE CAP* 25 MG PO SCH ×3 (08:16→20:25)
[2018-04-16] MEDS: Pantoprazole TAB * 40 MG TAB PO SCH (08:16)
[2018-04-16] MEDS: Folic Acid TAB* 1 MG PO SCH (08:16)
[2018-04-16] MEDS: Multivitamins/Minerals TAB PO SCH (08:16)
[2018-04-16] MEDS: Gabapentin CAP(*) 300 MG PO SCH ×2 (08:16→20:26)
[2018-04-16] MEDS: QUEtiapine TAB* 25 MG PO SCH (08:16)
[2018-04-16] MEDS: Thiamine TAB* 100 MG TAB PO SCH (08:16)
[2018-04-16] MEDS: Propranolol TAB* 10 MG PO SCH (08:16)
[2018-04-16] MEDS ORDERED: Pneumococcal *Vac Polyvalent 0.5 ML VIAL IM ONE (09:00)
[2018-04-16] MEDS: LORazepam TAB(*) 1 MG PO SCH ×2 (12:32→23:49)
--- NOTE | 2018-04-16 19:16 | PN ---
Subjective Date of Service: 04/16/18 Interval History: Stable. no complains. He is still requiring benzodiazepine as per [facility] protocol. Will continue to monitor Family History: Unchanged from Admission Objective Active Medications: Acetaminophen (Tylenol Tab*) 650 mg PO Q4H PRN PRN Reason: PAIN Chlordiazepoxide (Librium Cap*) 50 mg PO TID [facility] Last Admin: 04/16/18 13:14 Dose: 50 mg Folic Acid (Folvite Tab*) 1 mg PO DAILY [facility] Last Admin: 04/16/18 08:16 Dose: 1 mg Gabapentin (Neurontin Cap(*)) 600 mg PO BID [facility] Last Admin: 04/16/18 08:16 Dose: 600 mg Hydroxyzine HCl (Atarax Tab*) 25 mg PO Q6H PRN PRN Reason: ANXIETY Last Admin: 04/15/18 20:26 Dose: 25 mg Ceftriaxone Sodium 1 gm/ (Sodium Chloride) 50 mls @ 200 mls/hr IVPB Q24H [facility] Stop: 04/21/18 18:59 Last Admin: 04/15/18 19:12 Dose: 200 mls/hr Lactulose (Lactulose*) 15 ml PO TID [facility] Last Admin: 04/16/18 13:14 Dose: 15 ml Levetiracetam (Keppra Tab*) 500 mg PO BID [facility] Last Admin: 04/16/18 08:16 Dose: 500 mg Lorazepam (Ativan Tab(*)) 0 - 6 mg PO .PER [facility] PROTOCOL [facility]; Protocol Last Admin: 04/16/18 12:32 Dose: 2 mg Multivitamins/Minerals (Theragran/Minerals Tab*) 1 tab PO DAILY [facility] Last Admin: 04/16/18 08:16 Dose: 1 tab Nicotine (Nicotine Patch 14 Mg/24 Hr*) 1 patch TRANSDERM DAILY [facility] Last Admin: 04/16/18 08:15 Dose: 1 patch Ondansetron HCl (Zofran Inj*) 4 mg IV Q4H PRN PRN Reason: NAUSEA/VOMITING Last Admin: 04/14/18 18:11 Dose: 4 mg Pantoprazole Sodium (Protonix Tab (Nf)) 40 mg PO DAILY [facility] Last Admin: 04/16/18 08:16 Dose: 40 mg Pharmacy Profile Note (Nicotine Patch Removal Note*) 1 note PATCH OFF 2100 [facility] Last Admin: 04/15/18 20:27 Dose: 1 note Propranolol HCl (Inderal Tab*) 10 mg PO DAILY [facility] Last Admin: 04/16/18 08:16 Dose: 10 mg Quetiapine Fumarate (Seroquel Tab*) 25 mg PO DAILY [facility] Last Admin: 04/16/18 08:16 Dose: 25 mg Thiamine HCl (Vitamin B-1 Tab*) 100 mg PO DAILY [facility] Last Admin: 04/16/18 08:16 Dose: 100 mg Vital Signs - 8 hr 04/16/18 04/16/18 04/16/18 12:20 12:32 13:14 Temperature 97.7 F Pulse Rate 64 Respiratory 18 16 18 Rate Blood Pressure 117/67 (mmHg) O2 Sat by Pulse 99 Oximetry 04/16/18 04/16/18 04/16/18 14:37 15:13 15:53 Temperature 97.7 F 97.7 F Pulse Rate 65 65 Respiratory 16 14 16 Rate Blood Pressure 119/71 115/68 (mmHg) O2 Sat by Pulse 98 99 Oximetry 04/16/18 04/16/18 15:59 17:59 Temperature 98.3 F Pulse Rate 65 Respiratory 16 16 Rate Blood Pressure 109/55 (mmHg) O2 Sat by Pulse 96 Oximetry Oxygen Devices in Use Now: None Appearance: Awake, alert Eyes: No Scleral Icterus, - - EOMI Ears/Nose/Mouth/Throat: NL Teeth, Lips, Gums, Mucous Membranes Moist Neck: NL Appearance and Movements; NL JVP, Trachea Midline Respiratory: Symmetrical Chest Expansion and Respiratory Effort, Clear to Auscultation Cardiovascular: NL Sounds; No Murmurs; No JVD Abdominal: NL Sounds; No Tenderness; No Distention Extremities: No Edema Skin: No Rash or Ulcers Neurological: Alert and Oriented x 3 Result Diagrams: 04/16/18 05:27 04/16/18 05:27 Microbiology and Other Data: Microbiology 04/14/18 17:30 Urine Culture - Final Urine Staphylococcus Epidermidis Assess/Plan/Problems-Billing Assessment: Pt is a 52yom who presents for alcohol withdrawal. - Patient Problems (1) Alcohol withdrawal Current Visit: No Status: Acute Code(s): F10.239 - ALCOHOL DEPENDENCE WITH WITHDRAWAL, UNSPECIFIED SNOMED Code(s): 464738063 Comment: -WA protocol in place; pt has h/o withdrawal seizures -Continue folate, thiamine, multivitamin -Continue librium scheduled -Seizure precautions in place -Ammonia continues to elevate; lactulose ordered, recheck in a.m. and titrate to 1-2 loose stools/day -Social work consulted re: desire for placement in inpatient rehab facility (2) DVT prophylaxis Current Visit: Yes Status: Acute Code(s): OGB3498 - SNOMED Code(s): 311502652 Comment: -Low risk; TEDS ordered (3) Gastroesophageal reflux disease Current Visit: Yes Status: Acute Code(s): K21.9 - GASTRO-ESOPHAGEAL REFLUX DISEASE WITHOUT ESOPHAGITIS SNOMED Code(s): 825339900 Comment: -Stable; pt typically on pantoprazole at home -Ordered pantoprazole 40mg qd (4) Hypertension Current Visit: Yes Status: Acute Code(s): I10 - ESSENTIAL (PRIMARY) HYPERTENSION SNOMED Code(s): 68392172 Comment: -Continue propranolol (5) Hypokalemia Current Visit: Yes Status: Acute Code(s): E87.6 - HYPOKALEMIA SNOMED Code( s): 72538314 Comment: -Potassium 40meq PO ordered-Recheck CMP in a.m. (6) Urinary tract infection Current Visit: Yes Status: Acute Comment: -Continue Ceftriaxone (7) Depression Current Visit: No Status: Chronic Code(s): F32.9 - MAJOR DEPRESSIVE DISORDER , SINGLE EPISODE, UNSPECIFIED SNOMED Code(s): 10705678 Comment: -Continue home medication regimen Status and Disposition: Discharge to inpatient rehabilitation facility when stable.
[2018-04-16] MEDS: cefTRIAXone(*) 1 GM in NS 0.9% 50 ML* 50 ML IVPB SCH (19:55)
[2018-04-16] MEDS: hydrOXYzine HCL TAB* 25 MG PO PRN (20:26)
[2018-04-16] MEDS: Nicotine Patch Removal NOTE PATCH OFF SCH (20:26)
[2018-04-17 06:10] LABS: BUN/Creatinine Ratio 21.3 (8-20); Calcium 8.5 mg/dL (8.6-10.3); EGFR Non-African American 138.8 (>60); Magnesium 1.7 mg/dL (1.9-2.7); Potassium 3.7 mmol/L (3.5-5.0)
[2018-04-17] MEDS: Gabapentin CAP(*) 300 MG PO SCH ×2 (08:37→21:25)
[2018-04-17] MEDS: QUEtiapine TAB* 25 MG PO SCH (08:37)
[2018-04-17] MEDS: levETIRAcetam TAB* 500 MG PO SCH ×2 (08:37→21:26)
[2018-04-17] MEDS: Nicotine PATCH 14 MG/24 HR* PATCH TRANSDERM SCH (08:37)
[2018-04-17] MEDS: chlordiazePOXIDE CAP* 25 MG PO SCH ×2 (08:37→13:06)
[2018-04-17] MEDS: Folic Acid TAB* 1 MG PO SCH (08:37)
[2018-04-17] MEDS: Multivitamins/Minerals TAB PO SCH (08:37)
[2018-04-17] MEDS: Propranolol TAB* 10 MG PO SCH (08:37)
[2018-04-17] MEDS: Thiamine TAB* 100 MG TAB PO SCH (08:37)
[2018-04-17] MEDS: Lactulose* 15 ML UDC PO SCH ×3 (08:37→21:30)
[2018-04-17] MEDS: Pantoprazole TAB * 40 MG TAB PO SCH (08:37)
[2018-04-17] MEDS: Potassium Chlor TAB* 20 MEQ TAB.ER PO SCH ×2 (09:42→21:26)
[2018-04-17] MEDS: Magnesium Oxide TAB* 400 MG PO SCH ×2 (09:42→21:26)
[2018-04-17] MEDS: hydrOXYzine HCL TAB* 25 MG PO PRN (16:18)
--- NOTE | 2018-04-17 18:03 | PN ---
Subjective Date of Service: 04/17/18 Interval History: Patient seen today, He is complaining of increase tremors. He was requesting to leave AMA. I met him earlier and decided to stay. I revisited with him and he had several questions repeated over and over all targeted to the fact that he has not been getting Ativan and "we are not treating his withdrawal"! He was informed that he was already on Librium Around the clock, which could be masking his withdrawal. I explained that we need to wean him off all Benzodiazepine before he get cleared medically to be transferred to a rehab place. I explained that I will discontinue his Librium and pending his WHAM score if he remains under the criteria for lorazepam and if 24hrs goes and he does not require it will be discharge in am. Anytime, he asks to leave prior to medical clearance will need to sign him AMA Family History: Unchanged from Admission Objective Active Medications: Acetaminophen (Tylenol Tab*) 650 mg PO Q4H PRN PRN Reason: PAIN Folic Acid (Folvite Tab*) 1 mg PO DAILY [facility] Last Admin: 04/17/18 08:37 Dose: 1 mg Gabapentin (Neurontin Cap(*)) 600 mg PO BID [facility] Last Admin: 04/17/18 08:37 Dose: 600 mg Hydroxyzine HCl (Atarax Tab*) 25 mg PO Q6H PRN PRN Reason: ANXIETY Last Admin: 04/17/18 16:18 Dose: 25 mg Ceftriaxone Sodium 1 gm/ (Sodium Chloride) 50 mls @ 200 mls/hr IVPB Q24H [facility] Stop: 04/21/18 18:59 Last Admin: 04/16/18 19:55 Dose: 200 mls/hr Lactulose (Lactulose*) 15 ml PO TID [facility] Last Admin: 04/17/18 13:06 Dose: 15 ml Levetiracetam (Keppra Tab*) 500 mg PO BID [facility] Last Admin: 04/17/18 08:37 Dose: 500 mg Lorazepam (Ativan Tab(*)) 0 - 6 mg PO .PER [facility] PROTOCOL [facility]; Protocol Last Admin: 04/16/18 23:49 Dose: 2 mg Magnesium Oxide (Magox 400 Tab*) 400 mg PO BID [facility] Last Admin: 04/17/18 09:42 Dose: 400 mg Multivitamins/Minerals (Theragran/Minerals Tab*) 1 tab PO DAILY [facility] Last Admin: 04/17/18 08:37 Dose: 1 tab Nicotine (Nicotine Patch 14 Mg/24 Hr*) 1 patch TRANSDERM DAILY [facility] Last Admin: 04/17/18 08:37 Dose: 1 patch Ondansetron HCl (Zofran Inj*) 4 mg IV Q4H PRN PRN Reason: NAUSEA/VOMITING Last Admin: 04/14/18 18:11 Dose: 4 mg Pantoprazole Sodium (Protonix Tab (Nf)) 40 mg PO DAILY [facility] Last Admin: 04/17/18 08:37 Dose: 40 mg Pharmacy Profile Note (Nicotine Patch Removal Note*) 1 note PATCH OFF 2099 [facility] Last Admin: 04/16/18 20:26 Dose: 1 note Potassium Chloride (Klor Con Er Tab*) 20 meq PO BID [facility] Last Admin: 04/17/18 09:42 Dose: 20 meq Propranolol HCl (Inderal Tab*) 10 mg PO DAILY [facility] Last Admin: 04/17/18 08:37 Dose: 10 mg Quetiapine Fumarate (Seroquel Tab*) 25 mg PO DAILY [facility] Last Admin: 04/17/18 08:37 Dose: 25 mg Thiamine HCl (Vitamin B-1 Tab*) 100 mg PO DAILY [facility] Last Admin: 04/17/18 08:37 Dose: 100 mg Vital Signs - 8 hr 04/17/18 04/17/18 04/17/18 10:22 11:08 11:54 Temperature 98.1 F 98.0 F Pulse Rate 68 71 Respiratory 18 16 16 Rate Blood Pressure 91/48 103/58 (mmHg) O2 Sat by Pulse 95 98 Oximetry 04/17/18 04/17/18 04/17/18 13:06 16:01 16:48 Temperature 98.4 F Pulse Rate 71 Respiratory 16 16 16 Rate Blood Pressure 114/58 (mmHg) O2 Sat by Pulse 98 Oximetry Oxygen Devices in Use Now: None Appearance: Awake, Alert. Anxious. sitting at the edge of the bed. Grasping his right hand using his left hand to "control his tremors" during my interview. Eyes: No Scleral Icterus, - - EOMI Ears/Nose/Mouth/Throat: Mucous Membranes Moist Neurological: Alert and Oriented x 3, - - tremors upper extremeties but neurologically intact Result Diagrams: 04/16/18 05:27 04/17/18 05:25 Microbiology and Other Data: Microbiology 04/14/18 17:30 Urine Culture - Final Urine Staphylococcus Epidermidis Assess/Plan/Problems-Billing Assessment: Pt is a 52yom who presents for alcohol withdrawal. - Patient Problems (1) Alcohol withdrawal Current Visit: No Status: Acute Code(s): F10.239 - ALCOHOL DEPENDENCE WITH WITHDRAWAL, UNSPECIFIED SNOMED Code(s): 916765144 Comment: -WAM protocol in place; pt has h/o withdrawal seizures -Continue folate, thiamine, multivitamin -I will discontinue his librium scheduled. Will keep him on lorazepam as per FELIPA. He needs to be 24 hrs off benzo before he gets medically cleared for discharged. He is getting more anxious today. I will increase hydroxyzine to 50 mg Q6hrs prn, Increase seroquel to 50 mg HS. -Seizure precautions in place -Social work consulted re: desire for placement in inpatient rehab facility. (2) Gastroesophageal reflux disease Current Visit: Yes Status: Acute Code(s): K21.9 - GASTRO-ESOPHAGEAL REFLUX DISEASE WITHOUT ESOPHAGITIS SNOMED Code(s): 609451144 Comment: -Stable; pt typically on pantoprazole at home -Ordered pantoprazole 40mg qd (3) Hypertension Current Visit: Yes Status: Acute Code(s): I10 - ESSENTIAL (PRIMARY) HYPERTENSION SNOMED Code(s): 47815921 Comment: -Continue propranolol 10 mg daily. can be titrated up if his BP tolerate to control his tremor to 10 mg bid or tid. However his BP is soft at this time (4) Hypokalemia Current Visit: Yes Status: Acute Code(s): E87.6 - HYPOKALEMIA SNOMED Code( s): 10080605 Comment: -Potassium 20 meq PO bid. Recheck in am (5) Urinary tract infection Current Visit: Yes Status: Acute Comment: - I beleive it is contaminate. I did order repeat UA. I will discontinue Ceftriaxone (6) Depression Current Visit: No Status: Chronic Code(s): F32.9 - MAJOR DEPRESSIVE DISORDER , SINGLE EPISODE, UNSPECIFIED SNOMED Code(s): 27574868 Comment: -Continue home medication regimen (7) DVT prophylaxis Current Visit: Yes Status: Acute Code(s): YYY5422 - SNOMED Code(s): 562962570 Comment: -Low risk; TEDS ordered (8) History of seizure Current Visit: Yes Status: Acute Code(s): Z87.898 - PERSONAL HISTORY OF OTHER SPECIFIED CONDITIONS SNOMED Code(s): 912546608 Comment: - Continue Keppra Status and Disposition: Discharge to inpatient rehabilitation facility when stable.
[2018-04-17] MEDS ORDERED: QUEtiapine TAB* 25 MG PO SCH (21:00)
[2018-04-17] MEDS: cefTRIAXone(*) 1 GM in NS 0.9% 50 ML* 50 ML IVPB SCH (21:27)
[2018-04-17] MEDS: Nicotine Patch Removal NOTE PATCH OFF SCH (21:31)
[2018-04-17] MEDS: hydrOXYzine HCL TAB* 50 MG PO PRN (21:39)
[2018-04-17 22:23] LABS: Urine Appearance Clear; Urine Color Yellow
[2018-04-17 22:24] LABS: Urine Specific Gravity 1.015 (1.010-1.030)
[2018-04-17 22:25] LABS: Urine Blood Negative (Negative); Urine Ketones Negative (Negative); Urine Protein Negative (Negative); Urine Urobilinogen Positive (Negative)
[2018-04-17 22:26] LABS: Urine Bilirubin Negative (Negative); Urine Glucose Negative (Negative); Urine Nitrite Negative (Negative)
[2018-04-17 22:31] LABS: Urine Bacteria Absent (Absent); Urine Red Blood Cell Trace(0-2/hpf) (Absent); Urine White Blood Cell Trace(0-5/hpf) (Absent)
[2018-04-18 06:53] LABS: BUN/Creatinine Ratio 15.9 (8-20); Calcium 8.4 mg/dL (8.6-10.3); EGFR Non-African American 120.4 (>60); Magnesium 1.9 mg/dL (1.9-2.7); Potassium 3.8 mmol/L (3.5-5.0)
[2018-04-18] MEDS: Nicotine PATCH 14 MG/24 HR* PATCH TRANSDERM SCH (10:08)
[2018-04-18] MEDS: Folic Acid TAB* 1 MG PO SCH (10:09)
[2018-04-18] MEDS: Gabapentin CAP(*) 300 MG PO SCH (10:10)
[2018-04-18] MEDS: Thiamine TAB* 100 MG TAB PO SCH (10:10)
[2018-04-18] MEDS: levETIRAcetam TAB* 500 MG PO SCH (10:10)
[2018-04-18] MEDS: Pantoprazole TAB * 40 MG TAB PO SCH (10:10)
[2018-04-18] MEDS: Magnesium Oxide TAB* 400 MG PO SCH (10:10)
[2018-04-18] MEDS: Multivitamins/Minerals TAB PO SCH (10:10)
[2018-04-18] MEDS: Potassium Chlor TAB* 20 MEQ TAB.ER PO SCH (10:10)
[2018-04-18] MEDS: hydrOXYzine HCL TAB* 50 MG PO PRN (10:10)
[2018-04-18] MEDS: Lactulose* 15 ML UDC PO SCH (10:11)
--- NOTE | 2018-04-18 11:26 | PN ---
Subjective Date of Service: 04/18/18 Interval History: Pt is very anxious today. He is frustrated with his hospital stay, stating that "nothing is being done." He is concerned that he is not being involved in discussions regarding his placement in inpatient rehabilitation facility. I assured him that he has not been left out of the discussion, but that there has been no progress made since Wednesday when he last spoke with LAUREANO. He states that he is "not feeling any withdrawal symptoms." He states he is anxious and that his hernia is causing him some discomfort. He states that his hernia is still reducible. We discussed his desire to go to inpatient rehab facility. He states that he would prefer to be at his son's house than in the hospital while he awaits placement in rehab facility. He will speak with LAUREANO today and we will reassess after discussion. Pt will likely be d/c'd home today, as he has been without benzodiazepines for >24hours and is no longer showing signs of withdrawal. Pt is reporting 5-6 loose stools per day. Family History: Unchanged from Admission Objective Active Medications: Acetaminophen (Tylenol Tab*) 650 mg PO Q4H PRN Folic Acid (Folvite Tab*) 1 mg PO DAILY [facility] Gabapentin (Neurontin Cap(*)) 600 mg PO BID [facility] Hydroxyzine HCl (Atarax Tab*) 50 mg PO Q6H PRN Ceftriaxone Sodium 1 gm/ (Sodium Chloride) 50 mls @ 200 mls/hr IVPB Q24H [facility] Lactulose (Lactulose*) 15 ml PO TID [facility] Levetiracetam (Keppra Tab*) 500 mg PO BID [facility] Lorazepam (Ativan Tab(*)) 0 - 6 mg PO .PER [facility] PROTOCOL [facility]; Protocol Magnesium Oxide (Magox 400 Tab*) 400 mg PO BID [facility] Multivitamins/Minerals (Theragran/Minerals Tab*) 1 tab PO DAILY [facility] Nicotine (Nicotine Patch 14 Mg/24 Hr*) 1 patch TRANSDERM DAILY [facility] Ondansetron HCl (Zofran Inj*) 4 mg IV Q4H PRN Pantoprazole Sodium (Protonix Tab (Nf)) 40 mg PO DAILY [facility] Pharmacy Profile Note (Nicotine Patch Removal Note*) 1 note PATCH OFF 2100 [facility] Potassium Chloride (Klor Con Er Tab*) 20 meq PO BID [facility] Propranolol HCl (Inderal Tab*) 10 mg PO DAILY [facility] Quetiapine Fumarate (Seroquel Tab*) 50 mg PO BEDTIME [facility] Thiamine HCl (Vitamin B-1 Tab*) 100 mg PO DAILY [facility] Vital Signs: Temp Pulse Resp BP Pulse Ox 98.8 F 62 16 99/45 92 04/18/18 07:45 04/18/18 10:08 04/18/18 10:10 04/18/18 10:08 04/18/18 07:45 Oxygen Devices in Use Now: None Eyes: No Scleral Icterus, PERRLA Ears/Nose/Mouth/Throat: NL Teeth, Lips, Gums, Mucous Membranes Moist Neck: NL Appearance and Movements; NL JVP, Trachea Midline Respiratory: Symmetrical Chest Expansion and Respiratory Effort, Clear to Auscultation Cardiovascular: NL Sounds; No Murmurs; No JVD, RRR, No Edema Abdominal: NL Sounds; No Tenderness; No Distention, - - Liver palpable. Extremities: No Edema, No Clubbing, Cyanosis Neurological: Alert and Oriented x 3 Result Diagrams: 04/16/18 05:27 04/18/18 06:12 Microbiology and Other Data: Microbiology 04/14/18 17:30 Urine Culture - Final Urine Staphylococcus Epidermidis Assess/Plan/Problems-Billing Assessment: Pt is a 52yom who presents for alcohol withdrawal. - Patient Problems (1) Alcohol withdrawal Comment: -WAM protocol in place; pt has h/o withdrawal seizures -Continue folate, thiamine, multivitamin -Off benzodiazepams x24 hours at this point; will likely discharge once social work has seen pt; social work will see pt today and discuss inpatient rehab facilities -D/c lactulose, as pt experiencing 5-6 loose stools/day -Seizure precautions in place (2) Gastroesophageal reflux disease Comment: -Stable -Continue pantoprazole 40mg qd (3) Depression Comment: -Continue home medication regimen (4) Hypertension Comment: -Pantoprolol held today, as BP is soft (5) DVT prophylaxis Comment: -Low risk; TEDS ordered (6) Full code status Current Visit: No Status: Acute Code(s): Z78.9 - OTHER SPECIFIED HEALTH STATUS SNOMED Code(s): 990402250 Status and Disposition: Discharge to inpatient rehabilitation facility when stable.
[2018-04-18] MEDS: Propranolol TAB* 10 MG PO SCH (11:37)
[2018-04-18 15:56] VITALS: BP 127/74
--- NOTE | 2018-04-18 21:34 | DS ---
DISCHARGE SUMMARY: DATE OF ADMISSION: 04/14/18 DATE OF DISCHARGE: 04/18/18 PRIMARY CARE PROVIDER: Moriah Romano NP from [facility]. ATTENDING PHYSICIAN: Margi Mason MD.* (DICTATED BY ASHU SHEFFIELD) PRIMARY DIAGNOSIS: Alcohol withdrawal. SECONDARY DIAGNOSES: 1. Alcoholic hepatitis. 2. Chronically elevated liver function tests. 3. Hypertension. 4. Peripheral neuropathy. 5. Gastroesophageal reflux disease. 6. Anxiety. 7. Depression. STUDIES WHILE IN THE HOSPITAL: None. DISCHARGE MEDICATIONS: Home medications: 1. Quetiapine 25 mg p.o. daily. 2. Levetiracetam 500 mg p.o. b.i.d. 3. Gabapentin 600 mg p.o. b.i.d. 4. Mirtazapine 7.5 mg p.o. at bedtime. 5. Propranolol 10 mg p.o. daily. 6. Diazepam 5 mg p.o. t.i.d. p.r.n. 7. Pantoprazole 40 mg p.o. daily. New home medications: 1. Thiamine 100 mg p.o. daily. 2. Folic acid tab 1 mg p.o. daily. 3. Multivitamin/minerals 1 tab p.o. daily. HISTORY OF PRESENT ILLNESS/HOSPITAL COURSE: Mr. Marques is a 52-year-old man who presented to the ER on 04/14/18 for alcohol withdrawal. He states that his last drink was approximately 2 a.m. on Wednesday. In the last 24 hours after withdrawal, he had complained of a tremble, increased blood pressure, and feeling as if he was having palpitations, nausea, diarrhea, decreased sleeping. He states that he had been drinking approximately 1 L of vodka per day for the last 5 days. He relays a history of intermittent alcohol use over the last 10 years where he has attempted to quit multiple times. He reports having a history of withdrawal seizures 2 times in the last 10 years. He was placed on Keppra by his provider in order to avoid these seizures. The patient was given lorazepam, Zofran, thiamine, folic acid, and multivitamins in the emergency room and was asked to be evaluated for admission by the hospitalist team. The patient had an elevated ammonia level for which he was treated with lactulose. He was noted to have hypokalemia during his stay, which required treatment with oral potassium and this was resolved. He was placed on seizure precautions as well as [facility] protocol for alcohol withdrawal. Throughout his stay, he required benzodiazepines multiple times on 04/14/18, 04/15/18, and 04/16/18. His last administration on benzodiazepines was 2 mg of lorazepam on 04/16/18 at 2330. During his stay, he was placed on Librium 50 t.i.d. This was also discontinued on 04/17/18 at 1300. Throughout his stay, he met with Social Work multiple times to discuss placement in an inpatient rehabilitation center. Today on , the patient has been greater than 24 hours without benzodiazepines and Social Work has set up referral to [facility] and [facility], both of which will be reaching out to the patient after discharge for placement. The patient would like to be discharged today. He has plans to go home with his son and then reach out to an inpatient facility to be admitted. At the time of discharge, the patient continues to feel anxious, but states he is "not feeling any withdrawal symptoms." He denies chest pain, shortness of breath, abdominal pain, nausea, vomiting. He states he has approximately 5 to 6 loose stools per day. He continues to have a hernia, which is reducible and is being managed by his primary care physician. He denies tremors, headache, muscle weakness, or pain. Mr. Marques is stable for discharge. PHYSICAL EXAMINATION: Vital signs are temperature of 98.2, heart rate of 68, respiratory rate of 16, oxygen saturation 99% on room air, blood pressure 127/ 74. General: Mr. Marques is a well-developed, well-nourished, slightly obese, middle- aged white man who is sitting at the edge of bed, and in no acute distress. He appears his stated age. He is calm and cooperative and states that he is feeling slightly anxious. HEENT: Visual colby grossly intact. Pupils equally round and reactive to light and accommodation. Extraocular movements intact. Sclerae without icterus. Hearing grossly intact. Oral mucous membranes moist. Pharynx clear. Neck: Full range of motion. Thyroid is not palpable. Trachea at midline. No lymphadenopathy. Nontender to palpation. Respiratory: Symmetrical chest expansion. No use of accessory muscles. Lungs: Clear to auscultation. No rhonchi, wheezes, or rubs. Cardiovascular: Regular rate and rhythm. S1, S2 present. No murmurs, rubs, or gallops. No JVD. Abdomen: Bowel sounds in all 4 quadrants. Liver palpable. Abdomen is slightly tender to palpation. Musculoskeletal: Full range of motion. No pain or deformities. Extremities: Skin is warm and smooth bilaterally. No edema. No clubbing or cyanosis. Radial and pedal pulses 2+ bilaterally. Neuro: A and O x3. Moves all extremities. Motor strength is 5/5 in upper and lower extremities. Steady gait. No impairments. DISCHARGE PLAN: Mr. Marques will be discharged home. ACTIVITY: As tolerated. DIET: Regular. MEDICATIONS: As above. EDUCATION: Continue multivitamin, thiamine, and folate and follow up with your primary care physician regarding refills. Follow up with primary care in 4 to 7 days. Await responses from [facility] regarding placement; they will reach out to Mr. Marques. Return to the ER or the nearest hospital if he experiences any worsening of symptoms, shortness of breath, lightheadedness, dizziness, chest discomfort, high fevers, chills, night sweats, loss of consciousness, or any other worrisome signs or symptoms. This is a summarized report of a complex medical history and hospital stay. For further details, please see the entire medical record. TIME SPENT: Approximately 45 minutes were spent on this discharge, greater than half of that time spent [id number] with the patient discussing discharge plans and instructions. ASHU SHEFFIELD [id number]/CPS #: [id number] PRAVEEN
== END 2018-04-18 17:49 | disposition home or self-care (01) | DRG 775 ==
LOC: ED 12:09 → MEDTELE 16:06 → OBSVTOIN 04-15 16:06
PROVIDERS: ADMIT Internal Medicine; ATTEND Internal Medicine
DX: F10.239 Alcohol dependence with withdrawal, unspecified (principal); Y90.6 Blood alcohol level of 120-199 mg/100 ml; E87.6 Hypokalemia; K70.10 Alcoholic hepatitis without ascites; F10.20 Alcohol dependence, uncomplicated; I10 Essential (primary) hypertension; G62.9 Polyneuropathy, unspecified; K21.9 Gastro-esophageal reflux disease without esophagitis; F41.9 Anxiety disorder, unspecified; F32.9 Major depressive disorder, single episode, unspecified; F17.210 Nicotine dependence, cigarettes, uncomplicated; R94.5 Abnormal results of liver function studies; K46.9 Unspecified abdominal hernia without obstruction or gangrene; Z79.899 Other long term (current) drug therapy; Z88.8 Allergy status to other drugs, medicaments and biological substances; Z81.1 Family history of alcohol abuse and dependence; Z81.8 Family history of other mental and behavioral disorders
CPT/HCPCS: 36415; 71045; 80048; 80053; 80307; 80320; 80329; 81003; 81015; 82140; 82247; 83735; 84443; 85025; 85610; 87077; 87086; 87186; 90732; 93005; 99284; A9270-GY; G0378; G0480; J0696; J2060; J2405; J3411

== ENCOUNTER 2018-08-04 08:00 | Emergency (ER) | payer BC, MEDICARE ==
--- NOTE | 2018-08-04 08:20 | ED ---
Neurological HPI - HPI Summary HPI Summary: A 52 y/o M brought in by ambulance presents to ED s/p seizure at approximately 0700. PMHx: sz with ETOH detox. He drank some vodka this weekend, but had been in rehab and sober for months prior. He has not drunk since the weekend 3-4 days ago. Last night, he might have had a panic attack, he has not had one previously, and he describes it as: palpitations, sweaty, shaking. His son came to pick-up the patient this AM, and when the patient walked to the car, he suddenly fell to the ground, jerking. It lasted approximately 6-7 minutes. The sz had subsided before EMS arrived. Son doesn't think the patient hit his head. Pt denies any body pain or aches at bedside. EMS gave patient versed 5mg en route ED. - History of Current Complaint Chief Complaint: EDSeizure Stated Complaint: SEIZURE PER EMS Time Seen by Provider: 08/04/18 08:07 Hx Obtained From: Patient, Family/Home Care Giver - rosette ball Onset/Duration: Sudden Onset, Resolved - sz Timing: Intermittent Episodes Lasting: - 6-7 minutes Onset Severity: Moderate Current Severity: None Seizure Severity: Moderate Number of Seizures: 1 Pain Intensity: 0 Pain Scale Used: 0-10 Numeric Episode Lasting: Seconds/Minutes - 6-7 mins Aggravating: Alcohol/Drug Withdrawal Alleviating: Spontanious Resolution Associated Signs and Symptoms: Positive: Seizure, Diaphoresis, Palpitations. Negative: Pain Related Hx: Alcohol/Drug Abuse - Additional Pertinent History Primary Care Physician: CLARISSA - Allergy/Home Medications Allergies/Adverse Reactions: Allergies Allergy/AdvReac Type Severity Reaction Status Date / Time citalopram [From Celexa] Allergy Hives Verified 04/14/18 12:31 Home Medications: Home Medications Lactose [Lactose Hydrous] 1 pow XX BID 08/04/18 [History Confirmed 08/04/18] QUEtiapine TAB* [Seroquel 25 MG TAB*] 25 mg PO DAILY 08/04/18 [History Confirmed 08/04/18] PMH/Surg Hx/FS Hx/Imm Hx Previously Healthy: No Endocrine/Hematology History: Denies: Hx Diabetes, Hx Thyroid Disease Cardiovascular History: Reports: Hx Hypertension Denies: Hx Congestive Heart Failure Respiratory History: Denies: Hx Asthma, Hx Chronic Obstructive Pulmonary Disease (COPD) GI History: Reports: Hx Cirrhosis, Other GI Disorders - Hx of alcoholic hepatitis Denies: Hx Ulcer Musculoskeletal History: Reports: Other Musculoskeletal History - reports hx of left knee surgery Sensory History: Reports: Hx Contacts or Glasses Denies: Hx Hearing Aid Opthamlomology History: Reports: Hx Contacts or Glasses Neurological History: Reports: Hx Migraine - rare, Hx Peripheral Neuropathy, Hx Seizures, Other Neuro Impairments/Disorders - concussions Psychiatric History: Reports: Hx Anxiety, Hx Depression, Hx Panic Disorder, Hx Inpatient Treatment, Hx Community Mental Health Tx, Hx Substance Abuse Denies: Hx Attention Deficit Hyperactivity Disorder, Hx Eating Disorder, Hx Post Traumatic Stress Disorder, Hx Schizophrenia, Hx Bipolar Disorder, Hx Suicide Attempt - Hx of ideations, Hx of Violent Episodes Against Others, Other Psychiatric Issues/Disorders - Surgical History Surgery Procedure, Year, and Place: hx of left knee surgery Hx Anesthesia Reactions: No Infectious Disease History: No Infectious Disease History: Denies: Hx Clostridium Difficile, Hx Hepatitis, Hx Human Immunodeficiency Virus (HIV), Hx of Known/Suspected MRSA, Hx Shingles, Hx Tuberculosis, Hx Known/ Suspected VRE, Hx Known/Suspected VRSA, History Other Infectious Disease, Traveled Outside the [place] in Last 30 Days - Family History Known Family History: Positive: Other - Depression, alcohol abuse Family History: FHx of depression. FHx of alcohol abuse - Social History Occupation: Unemployed Lives: Alone Alcohol Use: Daily Alcohol Amount: 04/14/18 - binge drinking period of 5 days, 1 quart of vodka daily Substance Use Type: Reports: None, Other Substance Use Comment - Amount & Last Used: occasionally, pt unable to verbalize clear answers now Hx Tobacco Use: Yes Smoking Status (MU): Former Smoker Type: Cigarettes Amount Used/How Often: 5 cigs/day - weaning down Have You Smoked in the Last Year: No Review of Systems Positive: Skin Diaphoresis, Other - pos: tremulous Positive: Palpitations Negative: Arthralgia, Myalgia Neurological: Other - pos: seizure All Other Systems Reviewed And Are Negative: Yes Physical Exam - Summary Physical Exam Summary: Appearance: The patient is well-nourished in no acute distress and in no acute pain. Skin: The skin is warm and dry and skin color reflects adequate perfusion. HEENT: The head is normocephalic and atraumatic. The pupils are equal and reactive. The conjunctivae are clear and without drainage. Nares are patent and without drainage. Mouth reveals moist mucous membranes and the throat is without erythema and exudate. The external ears are intact. The ear canals are patent and without drainage. The tympanic membranes are intact. Neck: the neck is supple with full range of motion and non-tender. There are no carotid bruits. There is no neck vein distension. Respiratory: Chest is non-tender. Lungs are clear to auscultation and breath sounds are symmetrical and equal. Cardiovascular: Heart is regular rate and rhythm. There is no murmur or rub auscultated. There is no peripheral edema and pulses are symmetrical and equal. Abdomen: The abdomen is soft and non-tender. There are normal bowel sounds heard in all four quadrants and there is no organomegaly palpated. Musculoskeletal: There is no back tenderness noted. Extremities are non-tender with full range of motion. There is good capillary refill. There is no peripheral edema or calf tenderness elicited. Neurological: Patient is alert and oriented to person, place and time. The patient has symmetrical motor strength in all four extremities. Cranial nerves are grossly intact. Deep tendon reflexes are symmetrical and equal in all four extremities. Psychiatric: The patient has an appropriate affect and does not exhibit any anxiety or depression. Triage Information Reviewed: Yes Vital Signs On Initial Exam: Initial Vitals Temp Pulse Resp BP Pulse Ox 99.5 F 65 18 132/63 98 08/04/18 08:08 08/04/18 08:08 08/04/18 08:08 08/04/18 08:08 08/04/18 08:08 Vital Signs Reviewed: Yes Diagnostics - Vital Signs Vital Signs Temp Pulse Resp BP Pulse Ox 08/04/18 08:08 99.5 F 65 18 132/63 98 - Laboratory Result Diagrams: 08/03/18 08:32 08/03/18 08:32 Lab Statement: Any lab studies that have been ordered have been reviewed, and results considered in the medical decision making process. - EKG 0827 Cardiac Rate: NL - 64 bpm EKG Rhythm: Sinus Rhythm ST Segment: Normal Ectopy: None Summary of EKG Findings: no STEMI Re-Evaluation - Re-Evaluation 1 Re-Evaluation Time: 10:03 Change: Improved Comment: Patient is sleeping, no more sz. 2 Re-Evaluation Time: 10:32 Change: Improved Comment: Discussing results with patient and plan to discharge. Course/Dx - Course Course Of Treatment: Mr. Marques was observed here in the emergency department while labs were obtained. He was monitored and there was no abnormality noted. His labs were okay and is unclear to me exactly what happened as I did not witness it. It seems unlikely that he's had another alcohol withdrawal seizure as he has been mostly sober for the past couple of months. He is a little lethargic on arrival secondary to a postictal state and versed given in the ambulance. He remained stable and was nontoxic in appearance with no focal neurological deficiencies. I recommended follow-up with [facility] as he has no PCP locally currently. - Diagnoses Provider Diagnoses: Syncope Discharge - Sign-Out/Discharge Documenting (check all that apply): Patient Departure - D/C Patient Received Moderate/Deep Sedation with Procedure: No - Discharge Plan Condition: Stable Disposition: HOME Patient Education Materials: Syncope (ED) Referrals: [facility] [Outside] [facility] [Outside] - 7 Days Additional Instructions: Please return to the ED if you experience new or worsening symptoms. Follow up with your primary care provider within the week. - Billing Disposition and Condition Condition: STABLE Disposition: Home - Attestation Statements Document Initiated by Fernandezibe: Yes Documenting Scribe: Wendi Mcgrath Provider For Whom Fernandezibe is Documenting (Include Credential): Dr. Robert Lyons MD Scribe Attestation: IWendi scribed for Dr. Robert Lyons MD on 08/04/18 at 1109. Scribe Documentation Reviewed: Yes Provider Attestation: The documentation as recorded by the Wendi gardner accurately reflects the service I personally performed and the decisions made by me, Dr. Robert Lyons MD Status of Scribe Document: Viewed
[2018-08-04 08:57] LABS: INR 1.35 (0.82-1.09)
[2018-08-04 09:01] LABS: ABS Eosinophils 0.1 10^3/ul (0-0.6); ABS Lymphocytes 0.6 10^3/ul (1.0-4.8); ABS Monocytes 0.9 10^3/ul (0-0.8); Eosinophil % 1.1 %; Hematocrit 35 % (42-52); Hemoglobin 12.3 g/dL (14.0-18.0); Lymphocyte % 9.2 %; Mean Corpuscular HGB Conc 35 g/dL (31-36); Mean Corpuscular Hemoglobin 33 pg (27-31); Mean Corpuscular Volume 93 fL (80-94); Mean Platelet Volume 10.9 fL (7.4-10.4); Nucleated Red Blood Cells % 0.1; Platelet Count 48 10^3/uL (150-450); Red Blood Count 3.78 10^6 /uL (4.18-5.48); Red Cell Distribution Width 14 % (10.5-15); White Blood Count 6.7 10^3/uL (3.5-10.8)
[2018-08-04 09:19] LABS: Alcohol < 10 mg/dL (<10)
[2018-08-04 09:22] LABS: Troponin I 0.01 ng/mL (<0.04)
[2018-08-04 09:23] LABS: ALT 35 U/L (7-52); AST 58 U/L (13-39); Albumin 3.4 g/dL (3.2-5.2); Albumin/Globulin Ratio 1.3 (1-3); Alkaline Phosphatase 89 U/L (34-104); Anion Gap 6 mmol/L (2-11); BUN/Creatinine Ratio 26.6 (8-20); Blood Urea Nitrogen 17 mg/dL (6-24); CO2 Carbon Dioxide 26 mmol/L (22-32); Calcium 8.6 mg/dL (8.6-10.3); Chloride 105 mmol/L (101-111); EGFR African American 158.9 (>60); EGFR Non-African American 131.3 (>60); Globulin 2.7 g/dL (2-4); Glucose 115 mg/dL (70-100); Magnesium 1.6 mg/dL (1.9-2.7); Potassium 3.7 mmol/L (3.5-5.0); Sodium 137 mmol/L (135-145); Total Protein 6.1 g/dL (6.4-8.9)
[2018-08-04 09:33] LABS: TSH (Thyroid Stimulating Horm) 0.64 mcIU/mL (0.34-5.60)
[2018-08-04 10:25] LABS: Urine Appearance Clear; Urine Bacteria Absent (Absent); Urine Bilirubin Negative (Negative); Urine Blood 2+ (Negative); Urine Color Yellow; Urine Glucose Negative (Negative); Urine Ketones Negative (Negative); Urine Nitrite Negative (Negative); Urine Protein Negative (Negative); Urine Red Blood Cell 2+(6-10/hpf) (Absent); Urine Specific Gravity 1.009 (1.010-1.030); Urine Urobilinogen Negative (Negative); Urine White Blood Cell 2+(11-20/hpf) (Absent)
[2018-08-04 10:44] VITALS: BP 135/61
[2018-08-04 10:59] LABS: Urine Benzodiazepine Screen Presumptive Positive (None Detect); Urine Opiates Screen None Detected (None Detect)
== END 2018-08-04 10:44 | disposition home or self-care (01) ==
LOC: ED 08:00
DX: R55 Syncope and collapse (principal); I10 Essential (primary) hypertension; K70.10 Alcoholic hepatitis without ascites; F41.9 Anxiety disorder, unspecified; F32.9 Major depressive disorder, single episode, unspecified; Z88.8 Allergy status to other drugs, medicaments and biological substances; Z87.891 Personal history of nicotine dependence
CPT/HCPCS: 36415; 80053; 80307; 80320; 81003; 81015; 83605; 83735; 84443; 84484; 85025; 85610; 87077; 87086; 87186; 93005; 99283; G0480